=== PATIENT | male | born 1945 | race Caucasian/White ===

== ENCOUNTER 2019-03-27 10:10 | Emergency (ER) | payer MEDICARE, SELFPAY ==
--- NOTE | ~2019-03-27 | XR_ITS ---
EXAMINATION: XR chest 1V portable EXAM DATE: 03/27/2019 10:38 INDICATION: Shortness of breath. TECHNIQUE: Portable AP frontal chest x-ray was obtained. Comparison is made to prior examination from 07/01/2014. FINDINGS: The lungs are clear. There are no pleural effusions. The cardiomediastinal silhouette is within normal limits. There is no pneumothorax suspected. Left shoulder arthroplasty. IMPRESSION: No acute cardiopulmonary findings. Reviewed, dictated and finalized at location A. LSTERY PARTS SORTER
--- NOTE | ~2019-03-27 | CT_ITS ---
EXAMINATION: CTA chest PE protocol EXAM DATE: 03/27/2019 11:42 INDICATION: Shortness of breath, elevated d-dimer. TECHNIQUE: Spiral CTA of the chest (pulmonary arteries) was performed with 100 cc Omnipaque 350 intr avenous contrast injection. Images were acquired during the pulmonary arterial phase. Coronal maxi mum intensity projection 3D-reconstructions were created by the technologist on dedicated workstation . Axial, coronal and sagittal reformatted images were reviewed. The dose-length product (DLP) for t his examination was 272.13 mGy-cm. The exposure was tailored according to patient size (auto mA exp osure control), and iterative reconstruction (ASIR) was used as additional dose reduction technique. There is no prior study for comparison. FINDINGS: Pulmonary arteries are well opacified and without intraluminal filling defects. No thora cic aortic dissection. Linear bibasilar opacity consistent with subsegmental atelectasis. There is m ore rounded 7 mm nodular region with surrounding groundglass halo, finding which suggests this could be acute infectious process. Consider 6 month follow-up low-dose chest CT. There is mild emphysema an d hyperinflation. There are no pleural or pericardial effusions. Tracheobronchial tree is patent. There is no mediastinal, hilar or axillary lymphadenopathy. There is no pneumothorax. Heart norm al in size. There is mild coronary arterial calcification, arterial sclerosis. Upper abdomen is un remarkable. No osteoblastic or osteolytic lesions identified. IMPRESSION: 1. Subcentimeter left lower lobe nodular region with surrounding groundglass halo, could be small fo cus of acute infarction but consider 6 month follow-up low-dose chest CT. 2. Scattered bibasilar atelectasis. 3. Mild emphysema and hyperinflation. 4. No pulmonary emboli. Reviewed, dictated and finalized at location A. STRIAL ELECTRICAL ENGINEER IMPRESSION: 1. Subcentimeter left lower lobe nodular region with surrounding groundglass h ana, could be small focus of acute infarction but consider 6 month follow-up lo w-dose chest CT. 2. Scattered bibasilar atelectasis. 3. Mild emphysema and hyperinflation. 4. No pulmonary emboli.
[2019-03-27 10:15] VITALS: BP 168/73; PULSE 75; RESP 20; TEMP 37.1; O2SAT 98
--- NOTE | 2019-03-27 10:19 | ECG_ITS ---
Measurements Intervals [place] Rate: 59 P: 66 CO: 145 QRS: 72 QRSD: 82 T: 66 QT: 395 QTc: 392 Interpretive Statements SINUS BRADYCARDIA BORDERLINE ECG Electronically Signed On 03-27-2019 10:58:37 POLICE CAPTAIN SENIOR by Jose De Jesus Yanes D.O.
[2019-03-27 10:23] VITALS: PULSE 61
[2019-03-27 10:39] LABS: Basophils Absolute Auto 0.04 K/mm3 (0.00-0.10); Basophils Percent Auto 0.6 % (0.0-1.0); Eosinophils Absolute Auto 0.36 K/mm3 (0.02-0.50); Eosinophils Percent Auto 5.8 % (1.0-6.0); Hemoglobin 15.3 g/dL (12.4-15.3); Immature Granulocyte Absolute 0.02 K/mm3 (0.00-0.00); Immature Granulocyte Percent A 0.3 % (0.0-0.0); Lymphocytes Absolute Auto 0.83 K/mm3 (1.10-4.50); Lymphocytes Percent Auto 13.3 % (18.0-42.0); Mean Corpuscular HGB Conc 34.8 g/dL (32.0-36.0); Mean Corpuscular Hemoglobin 33.2 pg (27.0-31.0); Mean Corpuscular Volume 95.4 fL (78.0-102.0); Mean Platelet Volume 9.6 fl (8.7-11.0); Monocytes Absolute Auto 0.63 K/mm3 (0.10-0.90); Monocytes Percent Auto 10.1 % (2.0-11.0); Neutrophils Absolute Auto 4.4 K/mm3 (1.7-7.2); Neutrophils Percent Auto 69.9 % (50.0-70.0); Platelet Count Result 167 K/mm3 (150-420); Red Blood Count 4.61 M/mm3 (4.70-6.10); Red Cell Distribution Width 12.8 % (11.6-14.4); White Blood Count 6.3 K/mm3 (4.8-10.8)
--- NOTE | 2019-03-27 10:44 | ED.SOB ---
HPI - SOB/Dyspnea General Chief Complaint: Shortness of Breath/Dyspnea Stated Complaint: Russell Hess Time Seen by Provider: 03/27/19 10:20 Source: patient Mode of arrival: ambulatory Limitations: no limitations History of Present Illness HPI Narrative: Merritt is a very pleasant 73-year-old male patient. He presents ambulatory to the emergency room with his . His main complaint is that he has some hypogastric close avoid pain. He feels that this is similar to the 2 times she has had pneumonia in the past. He is somewhat short of breath. There is no history of fever. He has had no cough. There is no dyspnea on exertion. He just feels short of breath even at rest. There is no chest pain as such. No precordial pain. No arm pain. No tingling or numbness in the hands. Merritt has a history of hypertension. He is on metoprolol tartrate hydrochlorothiazide daily. History of the GERD, BPH, cervical disc disease, migraine headaches, hyperlipidemia and diverticulitis. He has never been a smoker. MD elicited complaint: shortness of breath Pertinent past history: pneumonia and other ( No history of NV, CHF. Has history of pneumonia twice in ) Context: other ( no history of exposure to flu. No recent illness.) Timing: constant Severity: mild Exacerbating factors: nothing Relieving factors: oxygen and rest Known history of: other ( Has history of pneumonia in the past. The last time was 10 years ago. No history of CHF.) Associated symptoms: other ( No chest pain. No fever. No leg swelling. No calf pain.) Treatment prior to arrival: none Related Data Home oxygen amount: none Home Medications Medication Instructions Recorded Confirmed metoprolol ta-hydrochlorothiaz 1 tablet PO DAILY 03/27/19 03/27/19 omeprazole 40 mg PO DAILY 03/27/19 03/27/19 Allergies Allergy/AdvReac Type Severity Reaction Status Date / Time hydrochlorothiazide Allergy Unknown Verified 05/28/14 12:35 ibuprofen Allergy Unknown Verified 05/28/14 12:35 No Known Allergies Allergy Unknown Verified 12/01/05 09:38 Review of Systems Review of Systems: All systems reviewed & are unremarkable except as noted in HPI and below Constitutional: Constitutional: Reports as per HPI, Reports no additional constitutional complaints, Denies chills, Denies fever(s) and Denies weakness Eyes: Eyes: Reports as per HPI, Reports no additional eye complaints and Denies change in vision ENT: Reports system reviewed and no additional complaints, except as documented, Reports as per HPI, Denies dizziness and Denies sore throat Cardiovascular: Cardiovascular: Reports as per HPI, Reports no additional cardiovascular complaints, Denies chest pain, Denies rapid heart rate, Denies radiating jaw, neck or arm pain and Denies slow heart rate Respiratory: Respiratory: Reports as per HPI, Reports no additional respiratory complaints and Reports dyspnea Gastrointestinal: Gastrointestinal: Reports as per HPI, Reports no additional gastrointestinal complaints, Denies abdominal pain, Denies constipation, Denies diarrhea, Denies nausea and Denies vomiting Genitourinary: Genitourinary: Reports no additional male genitourinary complaints, Denies hematuria and Denies dysuria Musculoskeletal: Musculoskeletal: Reports no additional musculoskeletal complaints and Reports as per HPI Comments: History of cervical disc disease Integumentary/Breasts: Skin/Breast: Reports system reviewed and no additional complaints, except as docu and Denies rash Neurologic: Reports system reviewed and no additional complaints, except as documented, Reports as per HPI, Denies vertigo, Denies dizziness, Denies syncope, Reports headache(s), Denies focal weakness and Denies numbness Psychiatric: Psychiatric: Reports no additional psychiatric complaints, Reports as per HPI, Denies anxiety and Denies depression Endocrine: Endocrine: Reports no additional endocrine complaints, Reports as per HPI, Denies fatigue and Denies p
--- NOTE | 2019-03-27 10:49 | PC.NURSE ---
Report given to IRAIDA Ulloa
[2019-03-27 10:53] LABS: D Dimer 0.71 mg/L (0.19-0.50)
[2019-03-27 10:54] LABS: INR 1.1; Partial Thromboplastin Time 25.7 SEC (22.3-31.6)
[2019-03-27 10:56] LABS: Alanine Aminotransferase 37 U/L (16-63); Albumin Level 3.6 g/dL (3.4-5.0); Alkaline Phosphatase 89 U/L (46-116); Aspartate Amino Transferase 29 U/L (15-37); Bilirubin,Total 0.6 mg/dL (0.00-1.00); Blood Urea Nitrogen 14 mg/dL (7-18); Calcium 8.7 mg/dL (8.5-10.1); Carbon Dioxide 29 mmol/L (21-32); Chloride 106 mmol/L (98-108); Estimated CRCL calculation 44 ml/min; Estimated Glomerular Filt Rate 56; Glucose 90 mg/dL (70-99); Osmolality Calculated 298 mOsm/kg (285-295); Sodium 144 mmol/L (136-145); Total Protein 6.8 g/dL (6.4-8.2)
[2019-03-27 10:57] LABS: Troponin I < 0.02 ng/mL (0.00-0.056)
[2019-03-27 10:58] LABS: BNP 54 pg/mL (0-100)
[2019-03-27 10:58] LABS: Influenza Control Valid (Valid)
--- NOTE | 2019-03-27 11:20 | PC.NURSE ---
PT. RESTING ON STREACHER. VVS. PT. DENIES C/O
[2019-03-27 11:24] LABS: Add Urine Microscopic? NO; Appearance Urine Clear (Clear); Bilirubin Urine Negative (Negative); Blood Urine Negative (Negative); Color Urine Yellow (Yellow); Glucose Urine UA Negative (Negative); Ketones Urine Negative (Negative); Leukocyte Esterase Ur Negative LEU/UL (Negative); Nitrate Urine Negative (Negative); Protein Urine Negative (Negative); Urobilinogen Urine 0.2 mg/dL (0.2-1.0)
[2019-03-27 13:06] VITALS: BP 138/79; PULSE 61; O2SAT 98
--- NOTE | 2019-03-27 13:38 | PC.NURSE ---
3733 DR. UHGGINS SPEAKS WITH DR. NOVAK'S QUALITY ASSURANCE COACH.
--- NOTE | 2019-03-27 21:23 | PC.NURSE ---
1300 saline kristin removed cath intact. no active bleeding dressing applyed.
== END 2019-03-27 13:35 | disposition home or self-care (01) ==
PROVIDERS: Emergency Provider Surgery; PCP Family Medicine
DX: J18.9 Pneumonia, unspecified organism (principal); E78.5 Hyperlipidemia, unspecified
CPT/HCPCS: 36415; 71045; 71275; 80053; 81003; 83880; 84484; 85025; 85380; 85610; 85730; 87040; 87804; 93005; 96365; 99284; J0696; Q9965

== ENCOUNTER 2019-06-30 10:17 | Outpatient (CLI) | payer MEDICARE, SELFPAY ==
--- NOTE | ~2019-06-30 | US_ITS ---
US venous doppler [facility] DATE: 06/30/2019 10:42 INDICATION: Left lower extremity pain TECHNIQUE: Real-time and color flow imaging and Doppler analysis of the veins of the left lower extre mity COMPARISON: None FINDINGS: The left greater saphenous vein is patent. There is spontaneous and phasic flow and normal augmentation and color flow signal and normal compression of the deep veins of the left leg. IMPRESSION: No evidence of deep venous thrombosis of the left leg Reviewed, dictated and finalized at Location A. Reviewed, dictated and finalized at location A.
== END 2019-06-30 10:18 | disposition home or self-care (01) ==
PROVIDERS: PCP Family Medicine; Visit Provider Family Medicine
DX: M79.605 Pain in left leg (principal); M79.89 Other specified soft tissue disorders
CPT/HCPCS: 93971

== ENCOUNTER 2019-08-15 13:55 | Outpatient (CLI) | payer MEDICARE, SELFPAY ==
--- NOTE | ~2019-08-15 | US_ITS ---
US arterial ankle brachial ind INDICATION: Peripheral vascular disease TECHNIQUE: Segmental pressures and plethysmographic and Doppler waveforms of the brachial and lower e xtremity arteries were obtained. COMPARISON: None. FINDINGS: Right and left brachial artery pressures of 178 mm Hg and 181 mm Hg, respectively, are concordant (no rmal difference <= 30 mmHg). The right ankle-brachial index (THANG) is 1.12 (normal >= 0.9-1.0). The right great toe-brachial index (TBI) is 0.61 (normal >= 0.60). The left THANG is 0.58. The left TBI is 0.45. IMPRESSION: 1. Diminished left ankle and toe brachial indices consistent with moderate peripheral arterial diseas e. Reviewed, dictated and finalized at location A. IMPRESSION: 1. Diminished left ankle and toe brachial indices consistent with moderate ivette pheral arterial disease.
== END 2019-08-15 13:56 | disposition home or self-care (01) ==
PROVIDERS: PCP Family Medicine; Visit Provider Physician Assistant
DX: I73.9 Peripheral vascular disease, unspecified (principal)
CPT/HCPCS: 93922

== ENCOUNTER 2019-12-04 13:34 | Outpatient (RCR) | payer MEDICARE, SELFPAY ==
--- NOTE | 2019-12-04 14:51 | PTOPEVAL ---
Thank you for referring Merritt Marrero to [facility].? The patient is scheduled to be seen for therapy? ___3_x/week for 12 visits. Please review, sign, date and return this plan of care RAEANN. I agree with and certify that the following plan of care is medically necessary. Referring Physician Date Admitting Provider: Attending Provider: PHYSICIAN NOT ON STAFF Referring Provider: *PT Outpatient Evaluation Start: 12/04/19 14:08 Freq: Status: Active Protocol: Document 12/04/19 14:09 FLORI (Rec: 12/04/19 14:51 FLORI [email or web address]) Therapy Assessment Status Assessment Status Assessment Status Evaluation Outpatient Past Medical History Cardiovascular History Hx Hypertension Yes Gastrointestinal History Hx Gastroesophageal Reflux Disease Yes Musculoskeletal History Hx Orthopedic Surgery Yes: shoulders and neck Evaluation Information Problem Diagnosis unstable gait, parkinsonism Onset 12/03/18 Subjective Information Pt. reports that about 1 year Query Text:As Reported By Patient/ ago he developed a deposit of Family fluid in the brain. He states that they have noted a worsening of his mobility over the past year. Pt. reports that he has difficulty with walking first thing in the morning. He states that his right leg is weaker than the left. He recalls 2 episodes of falling to the ground in the past several months. He states that he continues to complete all IADL's despite his pain. He reports that he can only walk about 1/4-1/2 mile until his legs give out, however was able to walk for about 5 miles up to 6 months or 1 year ago. He reports that his goal is to return to walking normal and improving strength. Prior Level of Function Activity Level (Last 3 Months) Occupation retired Hand Dominance Right Activity of Daily Living Ability Independent Indoor/Home Mobility Independent Community Mobility Independent Stairs Ability Independent Functional Cognition (Planning, Shopping Needs Some Help , Taking Medications) Cooking Yes Cleaning
== END 2020-01-10 14:36 | disposition home or self-care (01) ==
LOC: CHSPT 13:34
DX: R26.81 Unsteadiness on feet (principal); G20 Parkinson's disease
CPT/HCPCS: 97110; 97161; 97530

== ENCOUNTER 2020-06-01 15:28 | Emergency (ER) | payer MEDICARE, SELFPAY ==
--- NOTE | ~2020-06-01 | XR_ITS ---
XR chest 1V 06/01/2020 16:16 Indication: Chest pain after fall Procedure: AP view of the chest Comparison: 03/27/2019 Findings: Heart size normal. No focal air space disease, pulmonary edema, pleural effusion or suspect ed pneumothorax. There is basilar atelectasis. No acute osseous abnormality. There is left shoulder a rthroplasty. Impression: 1: Bibasilar atelectasis. Reviewed, dictated and finalized at location A. Impression: 1: Bibasilar atelectasis.
--- NOTE | ~2020-06-01 | CT_ITS ---
EXAMINATION: CT brain wo con DATE: 06/01/2020 16:12 INDICATION: Status post fall. Trauma to the back of head. Neck pain. TECHNIQUE: Computed tomography (CT) of the head was performed without intravenous contrast. The dose- length product was 681.00 mGy-cm. Automated exposure control and iterative reconstruction technique w ere employed. COMPARISON: CT dated 10/28/2015 FINDINGS: Brain parenchymal volume is normal for age. There are scattered mild periventricular and kent bcortical white matter changes, most likely related to small vessel ischemic disease (microangiopathy ). No depressed skull fractures. No acute intracranial hemorrhage, infarction, mass or mass effect. N o ventriculomegaly or midline shift. IMPRESSION: 1. No acute intracranial abnormality. 2: Chronic age-related findings. Reviewed, dictated and finalized at location A.
--- NOTE | ~2020-06-01 | CT_ITS ---
EXAMINATION: CT cervical spine wo con DATE: 06/01/2020 16:12 INDICATION: Neck pain after fall TECHNIQUE: Computed tomography (CT) of the cervical spine was performed without intravenous contrast. The dose-length product was 344 mGy-cm. Automated exposure control and iterative reconstruction tech [employer] were employed. COMPARISON: CT dated 07/24/2016 FINDINGS: There is posterior fusion hardware at C3-C5 with interbody fusion. Facets are fused at C6-7 . There is lucency surrounding the C5 pedicular screws without significant change from prior examinat ion. There is partial laminectomy inferiorly at C3. There are laminectomies at C4 and C5. Vertebral b mariana heights are maintained. No significant prevertebral soft tissue abnormality. Odontoid process wit hin normal limits. There is an oblique nondisplaced left first rib fracture. No significant paraspina l soft tissue abnormality. There is apical pleural thickening/scarring. IMPRESSION: 1. Oblique nondisplaced fracture posterior aspect of the left first rib. 2: No acute abnormality of the cervical spine. Reviewed, dictated and finalized at location A.
[2020-06-01 15:27] VITALS: BP 172/85; PULSE 78; RESP 18; TEMP 36.3; O2SAT 98
--- NOTE | 2020-06-01 15:36 | ED.FALL ---
HPI - Fall General Chief Complaint: Fall Stated Complaint: fall, neck, bilat shoulder pain Source: patient Mode of arrival: ambulatory Limitations: no limitations History of Present Illness HPI Narrative: This is 74 year old male with history of chronic neck pain, neck surgery who presents for evaluation of neck pain s/p fall. Patient accidentally fell backwards just prior to arrival. He hit his head on his pilates equipment. He denies having LOC but reports neck pain and bilateral shoulder. He denies dizziness, nausea or vomiting. He denies focal extremity weakness, numbness or tingling. He denies chronic anticoagulation. Related Data Home Medications Medication Instructions Recorded Confirmed carbidopa-levodopa 1.5 tablet PO TID 06/01/20 Allergies Allergy/AdvReac Type Severity Reaction Status Date / Time hydrochlorothiazide Allergy Unknown Unknown Verified 06/01/20 15:34 Review of Systems Review of Systems: All systems reviewed & are unremarkable except as noted in HPI and below PMFSH Past Medical History Medical History (Updated 06/01/20 @ 17:16 by Marley Florence MD) Cervical disc disease Diverticulitis Hyperlipidemia Left lower lobe pulmonary nodule Pneumonia Rotator cuff arthropathy of both shoulders Surgical History Surgical History History of neck surgery History of shoulder surgery Family History Family History Father , father ultimately of CHF Malignant neoplasm of prostate Heart disease Sibling Family history of coronary artery disease Mother , mother of Alzheimer's No problems noted. Social History Social History Smoking status: Never smoker Second hand tobacco smoke exposure: No Alcohol intake: never Exam Const: General: no acute distress and alert Orientation/consciousness: patient oriented x3 HENMT: Head: normocephalic and atraumatic Mouth: Yes Normal oral and palatal mucosa present, Yes lip normal and Yes moist mucous membranes Eyes: Pupils: Equal, round and reactive pupils present EOM: EOMs intact bilaterally Neck: Other: in cervical collar Resp: Effort & Inspection: normal respiratory effort and no retractions Auscultation: clear to auscultation bilaterally Cardio: Rate: regular rate Rhythm: regular rhythm Heart sounds: no murmurs GI: GI Palp: Yes Soft to palpation, No Tenderness to palpation present (GI) and No Guarding due to palpation present (GI) Auscultation: normal bowel sounds Skin: General skin exam: normal color Rashes: no rashes Neuro: General: patient oriented x3 and moves all extremities Psych: Mental Status: mental status grossly normal Affect: normal affect Course Reevaluation(s) Reevaluation #1: PAtient was able to ambulate . He did have shuffling gait from his parkinson's. CT spine is unchanged. He was made aware of his rib fractures. Date: 06/01/20 Time: 17:11 Vital Signs Vital signs: Vital Signs Temperature 97.4 F L 06/01/20 15:27 Pulse Rate 78 06/01/20 15:27 Respiratory Rate 18 06/01/20 15:27 Blood Pressure 172/85 H 06/01/20 15:27 Pulse Oximetry 98 06/01/20 15:27 Temperature 97.4 F L 06/01/20 17:02 Pulse Rate 63 06/01/20 17:39 Respiratory Rate 18 06/01/20 17:39 Blood Pressure 178/84 H 06/01/20 17:39 Pulse Oximetry 97 06/01/20 17:39 MDM - Fall Medical Records Attestation: I reviewed the patient's medical records. Imaging Data Attestation: I personally reviewed and interpreted this imaging study as follows: Radiologist's impression: ITS Impressions Head CT 06/01/20 16:16 IMPRESSION: 1. No acute intracranial abnormality. 2: Chronic age-related findings. Chest X-Ray 06/01/20 16:20 Impression: 1: Bibasilar atelectasis. ADDENDUM: 06/01/20 1624 Ad
[2020-06-01] MEDS: ONDANSETRON INJ 4 MG/2 ML VIAL IV PUSH (16:32)
[2020-06-01] MEDS: HYDROmorphone HCL INJ (*CRX) 1 MG/ML SYR 0.5 MG IV PUSH (16:32)
[2020-06-01 16:33] VITALS: BP 170/85; PULSE 86; RESP 16; O2SAT 99
[2020-06-01 17:02] VITALS: TEMP 36.3
[2020-06-01 17:39] VITALS: BP 178/84; PULSE 63; RESP 18; O2SAT 97
== END 2020-06-01 17:40 | disposition home or self-care (01) ==
PROVIDERS: Emergency Provider General Practice; PCP Family Medicine
DX: S09.90XA Unspecified injury of head, initial encounter (principal); S22.32XA Fracture of one rib, left side, initial encounter for closed fracture; M50.90 Cervical disc disorder, unspecified, unspecified cervical region; E78.5 Hyperlipidemia, unspecified; W01.198A Fall on same level from slipping, tripping and stumbling with subsequent striking against other object, initial encounter
CPT/HCPCS: 70450; 71045; 72125; 96374; 96375; 99284; J1170; J2405

== ENCOUNTER 2020-06-06 16:12 | Emergency (ER) | payer MEDICARE, SELFPAY ==
--- NOTE | ~2020-06-06 | XR_ITS ---
EXAMINATION: XR shoulder RT min 2V DATE: 06/06/2020 17:07 INDICATION: Right shoulder pain post fall down stairs TECHNIQUE: AP internally and externally rotated, AP oblique externally rotated and transscapular Y vi ews of the right shoulder were obtained. COMPARISON: None FINDINGS: Normal alignment. No fracture.Mild to moderate glenohumeral and acromioclavicular osteoarthritis. Mi ld cystic change along the greater tuberosity consistent with chronic rotator cuff disease. Partially visualized bilateral vertical danyel and pedicle screw fixation for cervical posterior spinal fusion. T here is small amount of lucency surrounding the screws suggesting possible loosening. Linear discoid atelectasis/scarring at the right lower lung zone. Soft tissues are unremarkable. IMPRESSION: Mild to moderate right glenohumeral and acromioclavicular osteoarthritis. No acute osseous abnormalit y. Reviewed, dictated and finalized at location A. IMPRESSION: Mild to moderate right glenohumeral and acromioclavicular osteoarthritis. No ac amauri osseous abnormality.
[2020-06-06 16:30] VITALS: BP 187/87; PULSE 84; RESP 16; TEMP 36.2; O2SAT 95
[2020-06-06] MEDS: KETOROLAC (*BKC) 60 MG/2 ML VIAL IM (16:39)
--- NOTE | 2020-06-06 17:37 | PC.NURSE ---
Pt states his pain is much better than when he came in rating it now at a 9/10.
--- NOTE | 2020-06-06 17:44 | ED.UPPEXIN ---
HPI - Extremity Injury (Upper) General Chief Complaint: Extremity Injury, Upper Stated Complaint: R shoulder Source: patient and family Mode of arrival: ambulatory Limitations: no limitations History of Present Illness HPI narrative: patient here today after he had a fall about a week ago and hit the back of his head and neck and the side of his left rib area, and is currently complaining of right shoulder pain with decreased range of motion, was seen at [facility] ER approximately 1 week ago and had x-rays performed there including a CT of cervical spine and chest x-ray which showed the arthroplasty of his left shoulder and a 1st nondisplaced rib fracture, the patient was given hydrocodone and week later the patient states that he is having extreme pain in his right shoulder at this time has been out of his hydrocodone and rates his pain greater than a 10. Has no point tenderness with palpation but does have decreased range of motion of his right shoulder. complaint: injury to: right and shoulder Onset (ago): week(s) Other Extremity Injury: Right: shoulder ( Painful with decreased range of motion) Severity: severe Severity scale (1-10): >10 Related Data Home Medications Medication Instructions Recorded Confirmed carbidopa-levodopa 1.5 tablet PO TID 06/01/20 06/06/20 Allergies Allergy/AdvReac Type Severity Reaction Status Date / Time hydrochlorothiazide Allergy Unknown Unknown Verified 06/01/20 15:34 Review of Systems Review of Systems: All systems reviewed & are unremarkable except as noted in HPI and below PMFSH Past Medical History Medical History (Updated 06/06/20 @ 17:49 by Stone Tinoco MD) Cervical disc disease Diverticulitis Hyperlipidemia Left lower lobe pulmonary nodule Pneumonia Rotator cuff arthropathy of both shoulders Surgical History Surgical History History of neck surgery History of shoulder surgery Family History Family History Father , father ultimately of CHF Malignant neoplasm of prostate Heart disease Sibling Family history of coronary artery disease Mother , mother of Alzheimer's No problems noted. Social History Social History Smoking status: Never smoker Second hand tobacco smoke exposure: No Alcohol intake: never Gender identity (if verbalized by the patient): Male Exam Const: General: no acute distress HENMT: Head: normal to inspection Eyes: Pupils: Equal, round and reactive pupils present Neck: Neck: normal visual inspection, no lymphadenopathy and no meningeal signs Chest: Chest palpation & inspection: normal inspection of the chest Resp: Effort & Inspection: normal respiratory effort Cardio: Rate: regular rate Rhythm: regular rhythm GI: GI Palp: Yes Soft to palpation Back/Spine/Pelvis: Back: no CVA tenderness Skin: General skin exam: normal color Rashes: no rashes Neuro: General: patient oriented x3 Other: Limited range of motion of the right shoulder but x-ray shows no acute fractures. Extrem: Other: Decreased range of motion the right shoulder no point tenderness with palpation no numbness or tingling has good pulses and is some right arm. Psych: Appearance: grossly normal Mental Status: mental status grossly normal Course Course Emergency Course: Patient received Toradol pain has improved, and reviewed x-ray findings with patient and family advised close follow-up with primary care physician he may need an MRI to rule out rotator cuff tear. Vital Signs Vital signs: Vital Signs Temperature 36.2 C L 06/06/20 16:30 Pulse Rate 84 06/06/20 16:30 Respiratory Rate 16 06/06/20 16:30 Blood Pressure 187/87 H 06/06/20 16:30 Pulse Oximetry 95 06/06/20 16:30 Temperature 36.2 C L 06/06/20 16:30 Pulse
[2020-06-06 17:58] VITALS: BP 173/80; PULSE 86; RESP 16; O2SAT 97
== END 2020-06-06 17:59 | disposition home or self-care (01) ==
PROVIDERS: Emergency Provider Emergency Medicine; PCP Family Medicine
DX: S46.011D Strain of muscle(s) and tendon(s) of the rotator cuff of right shoulder, subsequent encounter (principal); W19.XXXA Unspecified fall, initial encounter
CPT/HCPCS: 73030; 96372; 99283; J1885

== ENCOUNTER 2020-12-18 10:46 | Emergency (ER) | payer MEDICARE, SELFPAY ==
--- NOTE | ~2020-12-18 | XR_ITS ---
XR shoulder LT min 2V 12/18/2020 11:24 Indication: Left shoulder pain Procedure: 4 views left shoulder Comparison: 11/17/2010 Findings: There is a left total shoulder arthroplasty. There is a fracture fragment along the inferio r margin of the glenoid process, seen on the oblique image only. Surrounding osseous structures withi n normal limits. Impression: 1: Small fracture fragment along the inferior margin of the glenoid process, age indeterminate. 2: Left total shoulder arthroplasty well seated. Reviewed, dictated and finalized at location A. ASSISTANT Impression: 1: Small fracture fragment along the inferior margin of the glenoid process, ag e indeterminate. 2: Left total shoulder arthroplasty well seated.
--- NOTE | ~2020-12-18 | XR_ITS ---
XR elbow LT min 3V 12/18/2020 11:23 INDICATION: Left elbow pain PROCEDURE: 4 views left elbow COMPARISON: No prior studies for comparison. FINDINGS: Fracture, dislocation or subluxation is not identified. No significant joint effusion. The soft tissues appear within normal limits. No foreign bodies are identified. IMPRESSION: 1: NO ACUTE BONE OR JOINT ABNORMALITY IDENTIFIED. Reviewed, dictated and finalized at location A. THESIOLOGIST ATTENDING
[2020-12-18 10:56] VITALS: BP 154/84; PULSE 101; RESP 16; TEMP 37.1; O2SAT 96
--- NOTE | 2020-12-18 11:35 | PC.NURSE ---
PT TAKEN TO RADIOLOGY IN WHEELCHAIR
--- NOTE | 2020-12-18 11:41 | ED.FALL ---
HPI - Fall General Chief Complaint: Fall Stated Complaint: neck and shoulder pain from fall History of Present Illness HPI Narrative: This is a 75-year-old male with history of Parkinson's who had a fall on Wednesday according to patient his he went to open the door and fell backwards trying to open the door hit his shoulder as well as his elbow which is causing him pain patient that that he would see if the pain will go away he is having increasing pain to the shoulder and elbow when he applies pressure. According to patient's he has had frequent falls lately where his leg just gives out. Patient denies hitting his head Related Data Home Medications Medication Instructions Recorded Confirmed carbidopa 25 mg-levodopa 100 mg 1 tablet PO TID tablet 06/11/20 06/11/20 tablet Allergies Allergy/AdvReac Type Severity Reaction Status Date / Time hydrochlorothiazide Allergy Unknown Unknown Verified 12/18/20 11:03 Review of Systems Review of Systems: Left shoulder and elbow pain All systems reviewed & are unremarkable except as noted in HPI and below PMFSH Past Medical History Medical History (Updated 12/18/20 @ 11:46 by Maury Vickers, DAVINA) Cervical disc disease Diverticulitis Encounter for immunization Hyperlipidemia Left lower lobe pulmonary nodule Parkinson disease Pneumonia Rotator cuff arthropathy of both shoulders Surgical History Surgical History History of neck surgery History of shoulder surgery Family History Family History Father , father ultimately of CHF Malignant neoplasm of prostate Heart disease Sibling Family history of coronary artery disease Mother , mother of Alzheimer's No problems noted. Social History Social History Second hand tobacco smoke exposure: No Alcohol intake: never Substance use: never Substance use type: does not use Gender identity (if verbalized by the patient): Male Comments At time as signature, I have reviewed and agree with nursing past medical, social, surgical and family history. Please see nursing chart for further information. There is no relevant family history pertinent to the presenting complaint. Exam Narrative: GENERAL:Well-appearing, frail HEAD:Normocephalic, EYES: PERRLA . ENT: Nares clear, no rhinorrhea or epistaxis. CHEST: Clear to auscultation. HEART: Regular rate and rhythm. ABDOMEN: Soft, nontender, nondistended, normal active bowel sounds. EXTREMITIES: Decreased left arm and shoulder range of motion due to pain plus Parkinson's scrape on shoulder. No edema. SKIN: Warm, dry, no rash. NEURO: No focal deficits. Alert and oriented x3. Course Course Emergency Course: X-ray negative for elbow shoulder shows fracture fragment age-indeterminate will treat as if acute Vital Signs Vital signs: Vital Signs Temperature 98.7 F 12/18/20 10:56 Pulse Rate 101 H 12/18/20 10:56 Respiratory Rate 16 12/18/20 10:56 Blood Pressure 154/84 H 12/18/20 10:56 Pulse Oximetry 96 12/18/20 10:56 Temperature 98.7 F 12/18/20 10:56 Pulse Rate 101 H 12/18/20 10:56 Respiratory Rate 16 12/18/20 10:56 Blood Pressure 154/84 H 12/18/20 10:56 Pulse Oximetry 96 12/18/20 10:56 MDM - Fall Differential Diagnosis Differential diagnosis: Likely syncope, dislocation of shoulder region, fracture of wrist, compression fracture, concussion with loss of consciousness and concussion without loss of consciousness Discharge Plan Discharge Clinical Impression: Fracture of glenoid cavity and neck of left scapula Qualifiers: Encounter type: initial encounter Fracture type: closed Qualified Code(s): S42.142A - Displaced fracture of glenoid cavity of scapula, left shoulder, initial encounter for closed fracture Fall Qualifiers:
== END 2020-12-18 11:55 | disposition home or self-care (01) ==
PROVIDERS: Emergency Provider Nurse Practitioner Family; PCP Family Medicine
DX: S42.142A Displaced fracture of glenoid cavity of scapula, left shoulder, initial encounter for closed fracture (principal); S42.152A Displaced fracture of neck of scapula, left shoulder, initial encounter for closed fracture; W19.XXXA Unspecified fall, initial encounter; I10 Essential (primary) hypertension; E78.5 Hyperlipidemia, unspecified; G20 Parkinson's disease
CPT/HCPCS: 73030; 73080; 99214; A4565; G0463

== ENCOUNTER 2020-12-25 13:47 | Outpatient (RCR) | payer MEDICARE, SELFPAY ==
--- NOTE | 2020-12-25 14:19 | PTOPEVAL ---
Thank you for referring Merritt Marrero to [facility].? The patient is scheduled to be seen for therapy? ____x/week for ___ weeks. Please review, sign, date and return this plan of care RAEANN. I agree with and certify that the following plan of care is medically necessary. Referring Physician Date Admitting Provider: Attending Provider: Dannielle Toussaint MD Referring Provider: *PT Outpatient Evaluation Start: 12/25/20 13:44 Freq: Status: Active Protocol: Document 12/25/20 13:45 J (Rec: 12/25/20 14:19 [facility] [id number]) Therapy Assessment Status Assessment Status Assessment Status Evaluation Outpatient Past Medical History Neurological History Hx Dementia Yes Hx Parkinson's Disease Yes Cardiovascular History Hx Hypertension Yes Gastrointestinal History Hx Gastroesophageal Reflux Disease Yes Musculoskeletal History Hx Joint Replacement Yes: Left shoulder replacement Hx Orthopedic Surgery Yes: shoulders and neck Evaluation Information Problem Diagnosis parkinsons, abnormal gait, frequent falls Onset 12/20/20 Subjective Information patient reports he has been Query Text:As Reported By Patient/ having increased trouble Family walking and increased falls for the last 6 months. he reports he dell and broke his L shoulder (about 3 months ago ). patient reports fall was about 3 months ago, but ER visit was on 12/18/20 indicating fall was the wednesday prior on 12/15/20. he reports no falls since then. he reports he has been diagnosed with parkinsons for 2 years. he reports walking, balance, and routine home activities. patient reports he is currently using no AD, but reports he is getting a cane. patient reports he does drive. Prior Level of Function Comments Additional Prior Level of Function patients gait and balance has Comments been progressively getting worse for several years. Pain Assessment Timing of Pain Assessment Timing of Pain Assessment Assessment Pain Scale Pain Scale Used Numeric (1 - 10) Self Report Pain Assessment Left Shoulder(s) Reported Pain Level 8 Pain Score Pain Score 8: Self Report Interventions Used
--- NOTE | 2021-01-07 15:09 | PTOPEVAL ---
Thank you for referring Merritt Marrero to [facility].? The patient is scheduled to be seen for therapy? ____x/week for ___ weeks. Please review, sign, date and return this plan of care RAEANN. I agree with and certify that the following plan of care is medically necessary. Referring Physician Date Admitting Provider: Attending Provider: Dannielle Toussaint MD Referring Provider: *PT Outpatient Evaluation Start: 12/25/20 13:44 Freq: Status: Active Protocol: Document 01/07/21 13:50 [facility] (Rec: 01/07/21 15:08 [facility] [id number]) Therapy Assessment Status Assessment Status Assessment Status Progress Outpatient Past Medical History Neurological History Hx Dementia Yes Hx Parkinson's Disease Yes Cardiovascular History Hx Hypertension Yes Gastrointestinal History Hx Gastroesophageal Reflux Disease Yes Musculoskeletal History Hx Joint Replacement Yes: Left shoulder replacement Hx Orthopedic Surgery Yes: shoulders and neck Evaluation Information Problem Diagnosis parkinsons, abnormal gait, frequent falls Onset 12/20/20 Pain Assessment Timing of Pain Assessment Timing of Pain Assessment Assessment Self Report Self Report Pain Level 0 Pain Score Pain Score 0: Self Report Balance Assessment Tinetti Balance Assessment Sitting Balance Steady, safe Ability to Arise Able, uses arms to help Attempts to Arise Able, requires >1 attempt Immediate Standing Balance Steady with support Standing Balance Unsteady Nudged Response Begins to fall Standing with Eyes Closed Unsteady Step Pattern Turning 360 Degrees Discontinuous steps Stability Turning 360 Degrees Unsteady, grabs/staggers Sitting Down Uses arms or unsteady Initiation of Gait No hesitancy Right Foot Step Length Does pass stance foot Right Foot Step Height Completely clears floor Left Foot Step Length Does pass stance foot Left Foot Step Height Completely clears floor Step Symmetry Step length appears equal Step Continuity Steps appear continuous Path Description Mild/moderate deviation Trunk Description No sway but posturing Walking Stance Heels apart Assistive Devices Used No Tinetti Composite Score (Balance + Gait) 14 (/28) Interpretation of Scores High risk for falls(< 19) Comments sit to stand transfer perform is inconsistent and patient frequently attempts standing from chair and fa
--- NOTE | 2021-01-21 16:56 | PTOPEVAL ---
Thank you for referring Merritt Marrero to [facility].? The patient is scheduled to be seen for therapy? ____x/week for ___ weeks. Please review, sign, date and return this plan of care RAEANN. I agree with and certify that the following plan of care is medically necessary. Referring Physician Date Admitting Provider: Attending Provider: Dannielle Tousasint MD Referring Provider: *PT Outpatient Evaluation Start: 12/25/20 13:44 Freq: Status: Active Protocol: Document 01/21/21 16:44 [facility] (Rec: 01/21/21 16:55 [facility] [id number]) Therapy Assessment Status Assessment Status Assessment Status Re-evaluation Outpatient Past Medical History Neurological History Hx Dementia Yes Hx Parkinson's Disease Yes Cardiovascular History Hx Hypertension Yes Gastrointestinal History Hx Gastroesophageal Reflux Disease Yes Musculoskeletal History Hx Joint Replacement Yes: Left shoulder replacement Hx Orthopedic Surgery Yes: shoulders and neck Evaluation Information Problem Diagnosis parkinsons, abnormal gait, frequent falls Onset 12/20/20 Subjective Information patient reports he feels Query Text:As Reported By Patient/ improved, but still struggles Family with al ot of things that he used to be able to do easily. he reports he still gets off balance at times while walking and standing. he reports difficulty with sit to stand transfers. he reports he is not walking near as much at home anymore. he reports no falls recently. Pain Assessment Timing of Pain Assessment Timing of Pain Assessment Assessment Pain Scale Pain Scale Used Numeric (1 - 10) Self Report Pain Assessment Lower Back Reported Pain Level 2 Left Shoulder(s) Reported Pain Level 2 Pain Score Pain Score 2,2: Self Report Interventions Used Interventions Used By Clinicians Activity or ADL's,Education, Exercise Transfer Assessment Chair Transfer Assessment Chair Transfer Assistive Devices Gait Belt Ambulation Assistive Devices None Chair Transfer Destination Ambulatory Sit to Stand Chair Transfer Ability Standby Assistance Stand to Sit Chair Transfer Ability Standby Assistance Chair Transfer Comments patient performs sit to stand transfers with safe transfer to standing and minimal use of the UE's about 75% of the
--- NOTE | 2021-02-19 15:02 | PTOPEVAL ---
Thank you for referring Merritt Marrero to [facility].? The patient is scheduled to be seen for therapy? ____x/week for ___ weeks. Please review, sign, date and return this plan of care RAEANN. I agree with and certify that the following plan of care is medically necessary. Referring Physician Date Admitting Provider: Attending Provider: Dannielle Toussaint MD Referring Provider: *PT Outpatient Evaluation Start: 12/25/20 13:44 Freq: Status: Active Protocol: Document 02/19/21 14:00 [facility] (Rec: 02/19/21 15:01 [facility] [id number]) Therapy Assessment Status Assessment Status Assessment Status Discharge Outpatient Past Medical History Neurological History Hx Dementia Yes Hx Parkinson's Disease Yes Cardiovascular History Hx Hypertension Yes Gastrointestinal History Hx Gastroesophageal Reflux Disease Yes Musculoskeletal History Hx Joint Replacement Yes: Left shoulder replacement Hx Orthopedic Surgery Yes: shoulders and neck Evaluation Information Problem Diagnosis parkinsons, abnormal gait, frequent falls Onset 12/20/20 Subjective Information patient reports he feels good Query Text:As Reported By Patient/ this date. he reports no Family falls this past week. he reports he is compliant with his HEP until last week when he had a cataract removed. Pain Assessment Timing of Pain Assessment Timing of Pain Assessment Assessment Self Report Self Report Pain Level 0 Pain Score Pain Score 0: Self Report Lower Extremity Muscle Strength Testing Hip Strength Bilateral Hip Flexion Strength 4+ Good + Hip Abduction Strength 4 Good Knee Strength Bilateral Knee Flexion Strength 4+ Good + Knee Extension Strength 4+ Good + Posture Posture Standing Position Additional Posture Comments forward head/rounded shoulders decreased lumbar lordosis/ppt flexed hips, knees, and DF'd ankles widened PRISCILLA Balance Assessment Tinetti Balance Assessment Sitting Balance Steady, safe Ability to Arise Able, uses arms to help Attempts to Arise Able, requires >1 attempt Immediate Standing Balance Steady with support Standing Balance Steady, wide stance Nudged Response Begins to fall Standing with Eyes Closed Unsteady Step Pattern Turning 360 Degrees Discontinuous steps Stability Turning 360 Degrees Unsteady, grabs/staggers Sitting Down Uses arms or unsteady Ini
== END 2021-02-19 15:36 | disposition home or self-care (01) ==
LOC: CHSPT 13:47
PROVIDERS: PCP Family Medicine; Visit Provider Family Medicine
DX: G20 Parkinson's disease (principal); R29.898 Other symptoms and signs involving the musculoskeletal system; R29.6 Repeated falls
CPT/HCPCS: 97014; 97110; 97112; 97161; 97530; G0283

== ENCOUNTER 2021-11-23 19:57 | Emergency (ER) | payer MEDICARE, SELFPAY ==
--- NOTE | ~2021-11-23 | CT_ITS ---
EXAMINATION: CT brain wo con DATE: 11/23/2021 21:07 INDICATION: fall bavkwards, hit to back of head . TECHNIQUE: Computed tomography (CT) of the head was performed without intravenous contrast. The mA wa s adjusted according to patient size. Iterative reconstruction technique was employed. The dose-lengt h product was 681.00 mGy-cm. COMPARISON: 06/01/2020. FINDINGS: No acute intracranial hemorrhage or extra-axial fluid collection. No hydrocephalus, mass, or herniation. No acute ischemic infarct. Unremarkable dural venous sinus attenuation. No acute osseous abnormality. The aerated spaces are clear. Moderate atrophy and mild chronic white matter change. Atherosclerotic intracranial calcification. Bi lateral lens replacements. IMPRESSION: No acute intracranial process. Reviewed, dictated and finalized at location K.
--- NOTE | ~2021-11-23 | CT_ITS ---
EXAMINATION: CT cervical spine wo con DATE: 11/23/2021 21:07 INDICATION: fall/ prior surgery TECHNIQUE: Computed tomography (CT) of the cervical spine was performed without intravenous contrast. Automated exposure control and iterative reconstruction technique were employed. The dose-length pro duct was 387.26 mGy-cm. COMPARISON: 06/01/2020 FINDINGS: Vertebral Body Alignment: Intact. Stable trace retrolisthesis at C3-4 and trace anterolisthesis at C4 -5 Craniocervical and atlantoaxial alignment: Moderate degenerative change. Alignment intact. Osseous structures/fracture: Posterior hardware fusion and laminectomy from C3-C5. Vertebral body and facet fusion from C5-C7. Mild stable perihilar hardware lucency about the laminar screws at C5. No e vidence of a lytic or blastic process in the visualized spine. No evidence of acute fracture. Cervical soft tissues: The paraspinal soft tissues planes are maintained. Biapical pleural scarring. Degenerative changes: Degenerative changes, without severe central canal narrowing. Severe right neur al foraminal narrowing at C4-5 IMPRESSION: No acute fracture or traumatic malalignment in the cervical spine. Reviewed, dictated and finalized at location K.
[2021-11-23 19:47] VITALS: BP 186/79; PULSE 73; RESP 18; TEMP 36.7; O2SAT 98
--- NOTE | 2021-11-23 20:00 | ED.FALL ---
HPI - Fall General Chief Complaint: Fall Stated Complaint: FALL/HEAD INJURY Time Seen by Provider: 11/23/21 19:59 History of Present Illness HPI Narrative: Patient is a 76-year-old male with a history of Parkinson's presenting after a fall. Patient's reports that he has frequent falls. Today he was in the bathroom when he fell backwards striking his head on the bathtub. He denies losing consciousness. Since that time, he has had neck pain. States he has a history of multiple neck surgeries. He denies numbness or weakness. Denies vision changes, lightheadedness, speech changes, chest pain, shortness of breath, abdominal pain, nausea or vomiting. Related Data Home Medications Medication Instructions Recorded Confirmed carbidopa 25 mg-levodopa 100 mg 1 tablet PO TID 06/11/20 11/25/21 tablet Allergies Allergy/AdvReac Type Severity Reaction Status Date / Time hydrochlorothiazide Allergy Unknown Unknown Verified 11/25/21 12:02 Review of Systems Review of Systems: All systems reviewed & are unremarkable except as noted in HPI and below PMFSH Past Medical History Medical History Cervical disc disease Diverticulitis Encounter for immunization Hyperlipidemia Left lower lobe pulmonary nodule Parkinson disease Pneumonia Rotator cuff arthropathy of both shoulders Surgical History Surgical History History of neck surgery History of shoulder surgery Family History Family History Father , father ultimately of CHF Malignant neoplasm of prostate Heart disease Sibling Family history of coronary artery disease Mother , mother of Alzheimer's No problems noted. Social History Social History (Updated 11/25/21 @ 12:02 by Shelby Whitfield [facility]) Smoking status: Never smoker Second hand tobacco smoke exposure: No Alcohol intake: never Substance use: never Substance use type: does not use Gender identity (if verbalized by the patient): Male Spiritual care concerns: No Agree to blood products: Yes Exam Narrative: GENERAL: Frail appearing elderly gentleman HEAD: Normocephalic, atraumatic. EYES: PERRLA and EOMI. ENT: Nares clear, no rhinorrhea or epistaxis. Mucous membranes moist. NECK: C-collar in place, +cervical tenderness CHEST: Clear to auscultation. No respiratory distress. HEART: Regular rate and rhythm. No murmur heard. Normal peripheral pulses. ABDOMEN: Soft, nontender, nondistended, normal active bowel sounds. EXTREMITIES: Normal range of motion. No edema. SKIN: Warm, dry, no rash. NEURO: No focal deficits. Alert and oriented x3. PSYCH: Normal mood and affect. Course Course Emergency Course: Patient is a 76-year-old male presenting with neck pain after a fall. Patient is hypertensive, otherwise vitals are within normal limits. Exam remarkable for the above. No neurologic deficits. CT head shows no acute abnormalities. CT C-spine shows no acute abnormality. Patient was able to ambulate with a walker which is what he uses at home for ambulation. Offered admission for PT OT and possible placement but patient would like to go home at this time. Advise close PCP follow-up. Appropriate return precautions given. Patient discharged in stable condition. Vital Signs Vital signs: Vital Signs Temperature 98.1 F 11/23/21 19:47 Pulse Rate 73 11/23/21 19:47 Respiratory Rate 18 11/23/21 19:47 Blood Pressure 186/79 H 11/23/21 19:47 Pulse Oximetry 98 11/23/21 19:47 Temperature 98.1 F 11/23/21 19:47 Pulse Rate 73 11/23/21 19:47 Respiratory Rate 18 11/23/21 19:47 Blood Pressure 186/79 H 11/23/21 19:47 Pulse Oximetry 98 11/23/21 19:47 Critical Care Time Critical Care Time Critical Care Time: No Discharge Plan Discharge Clinical Impressi
[2021-11-23] MEDS: MORPHINE SULFATE (*CRX) 4 MG/ML INJ IM (20:44)
--- NOTE | 2021-11-23 22:42 | PC.NURSE ---
PCT ambulated pt in jean per MD order, pt tolerated ambulation well
== END 2021-11-23 23:02 | disposition home or self-care (01) ==
PROVIDERS: Emergency Provider Emergency Medicine; PCP Family Medicine
DX: S19.9XXA Unspecified injury of neck, initial encounter (principal); R29.6 Repeated falls; G20 Parkinson's disease; M50.30 Other cervical disc degeneration, unspecified cervical region; E78.5 Hyperlipidemia, unspecified; Z87.01 Personal history of pneumonia (recurrent); W01.198A Fall on same level from slipping, tripping and stumbling with subsequent striking against other object, initial encounter
CPT/HCPCS: 70450; 72125; 96372; 99284; J2270

== ENCOUNTER 2021-12-02 14:46 | Outpatient (RCR) | payer MEDICARE, SELFPAY ==
--- NOTE | 2021-12-02 16:02 | PTOPEVAL1 ---
Assessment and note entered by JT File, PT Evaluation Information Assessment Status Evaluation Diagnosis parkinsons disease, frequent falls Onset 11/17/21 Subjective Information patient reports he is back in therapy due to a lot of recent falls. he reports he has fallen 11 times in the last few weeks. he reports he has not broken any bones or had any injuries. he reports the first fall was outside and he was stuck on the ground for 3 hours. he reports he had a head CT recently with negative results for acute injury. he reports when he falls most of time he does not have his walker with him. he reports he does not use it in the house. Reported Pain Level Pain Score 0: Self Report Assessment PT Clinical Summary mr.s hays is a 76 yo man who presents to skilled PT services for evaluation and treatment of frequent falls. he does ahve a medical histroy of parkinsons disease, but for the past few weeks he has fallen 11 times or more. he presents this date with poor safety with transfers and ambulation, high fall risk, weakness in the LE's/core, and poor posture/body mechanics. he would do well to attend and participate in skilled PT services to improve his balance and safety, decrease fall risks, and return to greater independence in the home. patient may benefit from the transition to a maintenance program after this bout of skilled therapy. Plan of Care Interventions Gait Training,Manual Therapy,Neuro Re-education, Patient/Caregiver Educati,Therapeutic Activities, Therapeutic Exercise PT Services Indicated Yes Treatment Frequency and 3x weekly fro 12 visits Duration These treatments will address the objective and functional deficits as defined above. The patient will be advanced safely and appropriately in order for the patient to progress towards his/her prior level of function. Additional exercises will be introduced and as well as a comprehensive home exercise program upon discharge, if needed, ?to ensure carryover of functional gains achieved in the clinic. This treatment plan has been reviewed and agreement upon by the patient.
--- NOTE | 2021-12-25 15:28 | PTOPREEVAL ---
Assessment and note entered by JT File, PT Evaluation Information Assessment Status Re-evaluation Diagnosis parkinsons disease, frequent falls Onset 11/17/21 Subjective Information patient reports he feels good this date. he reports he has had no falls since beginning therapy. he reports he has no pain. his reports he is not doing exercises or walking at home. Reported Pain Level Pain Score 0: Self Report Assessment PT Clinical Summary mr. hays presents to skilled PT services for his 12th skilled therapy visit. as of this date, he does display slight increased hip and knee strength, improved ambulation speed/stride length and foot clearance in straight line ambulation, and decreased TUG and 5x sit to stand time. despite his decreased time for TUG and 5x sit to stand, patient continues to perform these tests/ transfers and ambulation with poor safety. he also presents with continued hip mm tightness, decreased balance per the tinetti, weakness in the hips and LE's, and poor motor planning/ coordination. he has made progress towards, but has not met goals for skilled restorative PT. given his diagnosis of parkinsons disease, decreased ability to independently work on balance , transfer safety, and coordination/motor planning at home, and risk for patient to continue to decline without continue skilled intervention, he would do well to continue skilled PT in a skilled maintenance program to prevent further decline in physical performance and safety. Plan of Care Interventions Gait Training,Neuro Re-education,Patient/Caregiver Educati,Therapeutic Activities,Therapeutic Exercise PT Services Indicated Yes Treatment Frequency and continue skilled PT in a maintenance program 1x Duration weekly for 4 visits. These treatments will address the objective and functional deficits as defined above. The patient will be advanced safely and appropriately in order for the patient to progress towards his/her prior level of function. Additional exercises will be introduced and as well as a comprehensive home exercise program upon discharge, if needed, ?to ensure carryover of functional gains achieved in the clinic. This treatment plan has been reviewed and agreement upon by the patient.
--- NOTE | 2022-03-10 16:13 | BUPTOPEVAL1 ---
Assessment and note entered by JT File, PT Evaluation Information Assessment Status Re-evaluation Diagnosis parkinsons disease, frequent falls Onset 11/17/21 Subjective Information patient and his are present for therapy today . his reports she struggles to get him to exercise at home, and he continues to have ups and downs with his balance, walking, and safety at home. he has had several falls. she reports she does think he does better when he goes to therapy. Reported Pain Level Pain Score 0: Self Report Assessment PT Clinical Summary mr. hays presents to skilled PT for his 25th therapy visit. he continues to present with signs and symptoms of parkinsons that affects his balance, gait, strength, memory, and safety. he is not complian with exercises at home at the moment , and appears to have plateaud again in his rehab. at this point, patient would do best to transition back into a maintenance program to try and maintain his balance, strength, ambulation, and safety performance. he was educated on the importance of performing HEP at home 2-3 days a week in addition to this 1x weekly maintenance program. patient, his , and PT fear he will decline significantly if he stops therapy all together. Plan of Care Interventions Gait Training,Neuro Re-education,Patient/Caregiver Educati,Therapeutic Activities,Therapeutic Exercise PT Services Indicated Yes Treatment Frequency and continue therapy 1x weekly for 4 visits for Duration maintenance protocol with patient to preventing worsening condition and quicker progression of parkinsons. These treatments will address the objective and functional deficits as defined above. The patient will be advanced safely and appropriately in order for the patient to progress towards his/her prior level of function. Additional exercises will be introduced and as well as a comprehensive home exercise program upon discharge, if needed, ?to ensure carryover of functional gains achieved in the clinic. This treatment plan has been reviewed and agreement upon by the patient.
== END 2022-03-05 14:08 | disposition still patient (30) ==
LOC: CHSPT 14:46
PROVIDERS: PCP Family Medicine; Visit Provider Family Medicine
DX: R29.6 Repeated falls (principal); G20 Parkinson's disease
CPT/HCPCS: 97110; 97112; 97161; 97530

== ENCOUNTER 2022-03-10 14:10 | Outpatient (RCR) | payer MEDICARE, SELFPAY | END 2022-03-10 15:11 | disposition home or self-care (01) | LOC: CHSPT 14:10 | PROVIDERS: PCP Family Medicine; Visit Provider Family Medicine | DX: R29.6 Repeated falls (principal); G20 Parkinson's disease | CPT/HCPCS: 97110; 97112; 97530 ==

== ENCOUNTER 2022-03-31 13:55 | Outpatient (CLI) | payer MEDICARE, SELFPAY ==
[2022-03-31 14:23] LABS: Basophils Absolute Auto 0.08 K/mm3 (0.00-0.10); Eosinophils Absolute Auto 0.19 K/mm3 (0.02-0.50); Eosinophils Percent Auto 2.4 % (1.0-6.0); Hematocrit 44.4 % (37.0-46.0); Hemoglobin 14.8 g/dL (12.4-15.3); Immature Granulocyte Absolute 0.02 K/mm3 (0.00-0.00); Immature Granulocyte Percent A 0.3 % (0.0-0.0); Lymphocytes Absolute Auto 0.77 K/mm3 (1.10-4.50); Lymphocytes Percent Auto 9.9 % (18.0-42.0); Mean Corpuscular HGB Conc 33.3 g/dL (32.0-36.0); Mean Corpuscular Hemoglobin 32.6 pg (27.0-31.0); Mean Corpuscular Volume 97.8 fL (78.0-102.0); Mean Platelet Volume 9.8 fl (8.7-11.0); Monocytes Absolute Auto 0.41 K/mm3 (0.10-0.90); Monocytes Percent Auto 5.3 % (2.0-11.0); Neutrophils Absolute Auto 6.3 K/mm3 (1.7-7.2); Neutrophils Percent Auto 81.1 % (50.0-70.0); Platelet Count Result 278 K/mm3 (150-420); Red Blood Count 4.54 M/mm3 (4.70-6.10); Red Cell Distribution Width 12.9 % (11.6-14.4); White Blood Count 7.8 K/mm3 (4.8-10.8)
[2022-03-31 14:43] LABS: Alanine Aminotransferase 29 U/L (16-63); Albumin Level 3.5 g/dL (3.4-5.0); Alkaline Phosphatase 139 U/L (46-116); Anion Gap 6 mmol/L (8-16); Aspartate Amino Transferase 22 U/L (15-37); Bilirubin,Total 0.7 mg/dL (0.00-1.00); Blood Urea Nitrogen 20 mg/dL (7-18); Calcium 8.5 mg/dL (8.5-10.1); Carbon Dioxide 31 mmol/L (21-32); Chloride 104 mmol/L (98-108); Estimated Glomerular Filt Rate 57; Glucose 98 mg/dL (70-99); Osmolality Calculated 294 mOsm/kg (285-295); Potassium 3.9 mmol/L (3.5-5.1); Sodium 141 mmol/L (136-145); Total Protein 7.4 g/dL (6.4-8.2)
[2022-04-02 21:47] LABS: Vitamin D 25 Hydroxy 53 ng/mL (30-100)
== END 2022-03-31 13:56 | disposition home or self-care (01) ==
PROVIDERS: PCP Family Medicine; Visit Provider Family Medicine
DX: E55.9 Vitamin D deficiency, unspecified (principal); R53.83 Other fatigue; I25.10 Atherosclerotic heart disease of native coronary artery without angina pectoris; E78.5 Hyperlipidemia, unspecified; D64.9 Anemia, unspecified
CPT/HCPCS: 36415; 80053; 82306; 84443; 85025

== ENCOUNTER 2022-04-08 15:10 | Emergency (ER) | payer MEDICARE, SELFPAY ==
--- NOTE | ~2022-04-08 | CT_ITS ---
EXAMINATION: CT brain wo con DATE: 04/08/2022 15:42 INDICATION: Head injury. Headache. TECHNIQUE: Computed tomography (CT) of the head was performed without intravenous contrast. The mA wa s adjusted according to patient size. Iterative reconstruction technique was employed. The dose-lengt h product was 681.00 mGy-cm. COMPARISON: Head CT 11/23/2021, 10/28/15 FINDINGS: There are scattered areas of low attenuation in the cerebral white matter, which is within normal limits for the patient's age. 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 There is no intracranial he morrhage, acute infarction, or abnormal intracranial mass lesion. The ventricles are dilated out of p roportion to the size of the sulci. There is mild mucosal thickening in the paranasal sinuses. There are likely changes of ocular lens replacement surgeries. The mastoid air cells are normal. IMPRESSION: 1. Chronic ventriculomegaly. Correlate clinically for normal pressure hydrocephalus. 2. 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 Reviewed, dictated and finalized at location A. [facility] IMPRESSION: 1. Chronic ventriculomegaly. Correlate clinically for normal pressure hydroceph alus. 2. 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
--- NOTE | ~2022-04-08 | US_ITS ---
US scrotum doppler INDICATION: Right testicular pain TECHNIQUE: Testicular sonogram utilizing grayscale and color Doppler FINDINGS: The testes are normal in size and appearance. No focal lesions are seen. The right testes measures 3.7 x 2.7 x 2.1 cm centimeters, and the left testis measures 3.4 x 2.2 x 2.3 cm cm. There is normal vascular flow to both testes. The right and left epididymides appear normal. There are small bilateral hydroceles. No evidence for varicocele. IMPRESSION: 1. Small bilateral hydroceles. Reviewed, dictated and finalized at location B. ED [employer]
[2022-04-08 15:10] VITALS: BP 151/53; PULSE 65; RESP 14; TEMP 36.3; O2SAT 100
--- NOTE | 2022-04-08 15:14 | ED.FALL ---
HPI - Fall General Chief Complaint: Fall Stated Complaint: fall/headache/ testicle pain Time Seen by Provider: 04/08/22 15:13 History of Present Illness HPI Narrative: Pt fell 5 days ago and struck head. Pt has persistent TINAJERO and family called PCP office and told to come to ER. also says the patient has testicular pain but not sure when that started. Pt is hard of hearing and answers most of the questions for him unless the question is posed directly to the patient and he answers appropriately. Pt denies urinary symptoms. Related Data Home Medications Medication Instructions Recorded Confirmed carbidopa 25 mg-levodopa 100 mg 1 tablet PO TID 06/11/20 03/24/22 tablet aspirin 81 mg tablet,delayed 81 mg PO DAILY 03/24/22 03/24/22 release Allergies Allergy/AdvReac Type Severity Reaction Status Date / Time hydrochlorothiazide Allergy Unknown Unknown Verified 04/08/22 15:20 Review of Systems Review of Systems: All systems reviewed & are unremarkable except as noted in HPI and below PMFSH Past Medical History Medical History (Updated 04/08/22 @ 16:16 by Rick Marshall III, DO) Cervical disc disease Coronary artery disease 03/2022 [place] with stenting Diverticulitis Encounter for immunization Hyperlipidemia Left lower lobe pulmonary nodule Parkinson disease Pneumonia Rotator cuff arthropathy of both shoulders Surgical History Surgical History (Updated 03/24/22 @ 10:08 by Shelby Whitfield CMA) H/O heart artery stent History of neck surgery History of shoulder surgery Family History Family History Father , father ultimately of CHF Malignant neoplasm of prostate Heart disease Sibling Family history of coronary artery disease Mother , mother of Alzheimer's No problems noted. Social History Social History Smoking status: Never smoker Second hand tobacco smoke exposure: No Alcohol intake: never Substance use: never Substance use type: does not use Lack of Transportation: No Lack of Food: Never True Current Housing: I Have Housing Concerned About Future Housing: No Difficulty Paying Gas/Electric Bills: No Difficulty Paying for Meds: No Currently Unemployed: No Difficulty w/ Childcare or Family Care: No Living arrangements: with family Occupation/Education: retired Gender identity (if verbalized by the patient): Male Spiritual care concerns: No Agree to blood products: Yes Exam Const: General: no acute distress Nutritional Appearance: thin Orientation/consciousness: patient oriented x3 Limitations: other limitations (hard of hearing) HENMT: Head: normal to inspection Eyes: Conjunctivae: conjunctivae normal EOM: EOMs intact bilaterally Neck: Neck: normal visual inspection and no meningeal signs Resp: Effort & Inspection: normal respiratory effort Auscultation: clear to auscultation bilaterally Cardio: Rate: regular rate Rhythm: regular rhythm GI: Auscultation: normal bowel sounds Back/Spine/Pelvis: Back: no CVA tenderness Skin: General skin exam: normal color Rashes: no rashes Wounds: no wounds Neuro: General: patient oriented x3, moves all extremities, no meningeal signs, no focal motor deficits and CN's II-XI intact bilaterally Speech: normal speech Extrem: General: normal to inspection and no clubbing, cyanosis or edema Psych: Mental Status: mental status grossly normal Affect: normal affect Attitude: cooperative Course Vital Signs Vital signs: Vital Signs Temperature 97.4 F L 04/08/22 15:10 Pulse Rate 65 04/08/22 15:10 Respiratory Rate 14 04/08/22 15:10 Blood Pressure 151/53 H 04/08/22 15:10 Pulse Oximetry 100 04/08/22 15:10 Oxygen Delivery Room Air 04/08/22 15:10 Temperature 98.2 F 04/08/22 16:10 Pulse Rate 66 04/08/22 16:10 Respiratory
[2022-04-08 16:10] VITALS: BP 146/62; PULSE 66; RESP 16; TEMP 36.8; O2SAT 99
== END 2022-04-08 16:19 | disposition home or self-care (01) ==
PROVIDERS: Emergency Provider Emergency Medicine; PCP Family Medicine
DX: S09.90XA Unspecified injury of head, initial encounter (principal); N43.3 Hydrocele, unspecified; I25.10 Atherosclerotic heart disease of native coronary artery without angina pectoris; E78.5 Hyperlipidemia, unspecified; G20 Parkinson's disease; W19.XXXA Unspecified fall, initial encounter
CPT/HCPCS: 70450; 76870; 93976; 99284

== ENCOUNTER 2022-10-08 09:58 | Outpatient (CLI) | payer MEDICARE, SELFPAY ==
[2022-10-08 10:16] LABS: Basophils Absolute Auto 0.09 K/mm3 (0.00-0.10); Basophils Percent Auto 1.2 % (0.0-1.0); Eosinophils Absolute Auto 0.31 K/mm3 (0.02-0.50); Hematocrit 44.9 % (37.0-46.0); Hemoglobin 15.1 g/dL (12.4-15.3); Immature Granulocyte Absolute 0.02 K/mm3 (0.00-0.00); Immature Granulocyte Percent A 0.3 % (0.0-0.0); Lymphocytes Absolute Auto 0.94 K/mm3 (1.10-4.50); Lymphocytes Percent Auto 12.1 % (18.0-42.0); Mean Corpuscular HGB Conc 33.6 g/dL (32.0-36.0); Mean Corpuscular Hemoglobin 34.1 pg (27.0-31.0); Mean Corpuscular Volume 101.4 fL (78.0-102.0); Mean Platelet Volume 9.4 fl (8.7-11.0); Monocytes Absolute Auto 0.58 K/mm3 (0.10-0.90); Monocytes Percent Auto 7.5 % (2.0-11.0); Neutrophils Absolute Auto 5.8 K/mm3 (1.7-7.2); Neutrophils Percent Auto 74.9 % (50.0-70.0); Platelet Count Result 236 K/mm3 (150-420); Red Blood Count 4.43 M/mm3 (4.70-6.10); Red Cell Distribution Width 13.1 % (11.6-14.4); White Blood Count 7.7 K/mm3 (4.8-10.8)
[2022-10-08 11:02] LABS: Alanine Aminotransferase 8 U/L (16-63); Albumin Level 3.6 g/dL (3.4-5.0); Alkaline Phosphatase 127 U/L (46-116); Anion Gap 3 mmol/L (8-16); Aspartate Amino Transferase 31 U/L (15-37); Bilirubin,Total 0.9 mg/dL (0.00-1.00); Blood Urea Nitrogen 19 mg/dL (7-18); Calcium 8.7 mg/dL (8.5-10.1); Carbon Dioxide 34 mmol/L (21-32); Chloride 104 mmol/L (98-108); Cholesterol 106 mg/dL (0-200); Estimated Glomerular Filt Rate > 60; Glucose 64 mg/dL (70-99); HDL Direct 48 mg/dL (40-60); LDL Cholesterol Calculated 51 mg/dL (<130); Osmolality Calculated 292 mOsm/kg (285-295); Potassium 4.4 mmol/L (3.5-5.1); Prostate Specific Antigen 0.9 ng/mL (< OR = 4.0); Sodium 141 mmol/L (136-145); Total Protein 7.3 g/dL (6.4-8.2); Triglycerides 36 mg/dL (0-150)
[2022-10-08 11:03] LABS: Thyroid Stimulating Hormone Reflex 1.74 u/IU/mL (0.36-3.74)
== END 2022-10-08 09:59 | disposition home or self-care (01) ==
LOC: CHSLAB 09:59
PROVIDERS: PCP Family Medicine; Visit Provider Family Medicine
DX: I25.10 Atherosclerotic heart disease of native coronary artery without angina pectoris (principal); E78.2 Mixed hyperlipidemia; Z12.5 Encounter for screening for malignant neoplasm of prostate; R53.83 Other fatigue
CPT/HCPCS: 36415; 80053; 80061; 84153; 84443; 85025; G0103

== ENCOUNTER 2022-10-08 19:13 | Observation (INO) | payer MEDICARE, SELFPAY ==
[2022-10-08] VITALS (7 sets, daily range): BP systolic 170–180; BP diastolic 68–95; PULSE 74–87; RESP 17–20; TEMP 36.4–36.6; O2SAT 95–99; BMI 18.8
--- NOTE | ~2022-10-08 | CT_ITS ---
EXAMINATION: CT brain wo con DATE: 10/08/2022 19:52 INDICATION: Head injury. TECHNIQUE: Computed tomography (CT) of the head was performed without intravenous contrast. The mA wa s adjusted according to patient size. Iterative reconstruction technique was employed. The dose-lengt h product was 681.00 mGy-cm. 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 There is diffuse brain volume loss. There are scattere d areas of low attenuation in the cerebral white matter, which is within normal limits for the patien t's age. There is no intracranial hemorrhage, acute infarction, or abnormal intracranial mass lesion. The ventricles are enlarged out of proportion to the size of the sulci. There are likely changes of ocular lens replacement surgeries. There are fractures of the nasal bones, nasal processes of maxilla , and nasal septum. The mastoid air cells are normal. There is a frontal scalp hematoma. There is sof t tissue swelling of the nose. IMPRESSION: 1. 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 2. Chronic ventriculomegaly. Correlate clinically for normal pressure hydrocephalus. 3. Acute fractures of the nasal bones, nasal processes of maxilla, and nasal septum. Reviewed, dictated and finalized at location E. IMPRESSION: 1. 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 2. Chronic ventriculomegaly. Correlate clinically for normal pressure hydroceph alus. 3. Acute fractures of the nasal bones, nasal processes of maxilla, and nasal se ptum.
--- NOTE | ~2022-10-08 | CT_ITS ---
EXAMINATION: CT facial & cervical spine wo DATE: 10/08/2022 19:52 INDICATION: Head injury. TECHNIQUE: Computed tomography (CT) of the maxillofacial region and cervical spine was performed with out intravenous contrast. Automated exposure control and iterative reconstruction technique were empl oyed. The dose-length product was 285.48 mGy-cm. COMPARISON: CT cervical spine 11/23/2021, head CT 11/23/2021 FINDINGS: MAXILLOFACIAL CT: There is a frontal scalp hematoma. There is soft tissue swelling of the nose. There are likely change s of ocular lens replacement surgeries. There are fractures of the nasal bones, nasal processes of ma xilla, and nasal septum. There is mucosal thickening in the paranasal sinuses. CERVICAL SPINE CT: There is scarring at the lung apices. There is 2 mm retrolisthesis of C3 on C4. There are changes of posterior fusion procedure from C3 to C5 with lateral mass screws. There is interbody fusion from C5 to C7. There is mildly decreased disc height at C3-C4. There are old healed bilateral rib fractures. The following disc levels are specifically discussed: C2-C3: There is mild right uncovertebral joint hypertrophy. There is mild bilateral facet joint osteo arthritis. There is mild right neural foraminal stenosis. There is no central canal stenosis. C3-C4: There is ankylosis of the uncovertebral joints without hypertrophy. There is mild bilateral fa cet joint hypertrophy. There is mild bilateral neural foraminal stenosis. There is mild central canal stenosis with posterior decompression. C4-C5: There is mild bilateral uncovertebral joint hypertrophy. There is severe bilateral facet joint hypertrophy. There is moderate bilateral neural foraminal stenosis. There is mild central canal sten osis. C5-C6: There is no uncovertebral joint hypertrophy. There is no facet joint hypertrophy. There is no neural foraminal stenosis. There is no central canal stenosis. C6-C7: There is no uncovertebral joint hypertrophy. There is no facet joint hypertrophy. There is no neural foraminal stenosis. There is no central canal stenosis. C7-T1: There is no uncovertebral joint osteoarthritis. There is severe bilateral facet joint osteoart hritis. There is mild left neural foraminal stenosis. There is no central canal stenosis. IMPRESSION: 1. Acute fractures of the nasal bones, nasal processes of maxilla, and nasal septum. 2. Mild cervical spondylosis. 3. Posterior fusion procedure from C3 to C5. Reviewed, dictated and finalized at location E. IMPRESSION: 1. Acute fractures of the nasal bones, nasal processes of maxilla, and nasal se ptum. 2. Mild cervical spondylosis. 3. Posterior fusion procedure from C3 to C5.
[2022-10-08] MEDS: TETANUS,DIPHTHERIA,AC PERTUSSIS ADULT 0.5 ML (ADACEL) IM (19:57)
[2022-10-08] MEDS: KETOROLAC 30 MG/ML VIAL (*BKC) IM (19:58)
[2022-10-08 19:59] LABS: Basophils Absolute Auto 0.06 K/mm3 (0.00-0.10); Basophils Percent Auto 0.8 % (0.0-1.0); Eosinophils Absolute Auto 0.27 K/mm3 (0.02-0.50); Eosinophils Percent Auto 3.8 % (1.0-6.0); Hematocrit 41.4 % (37.0-46.0); Hemoglobin 13.8 g/dL (12.4-15.3); Immature Granulocyte Absolute 0.02 K/mm3 (0.00-0.00); Immature Granulocyte Percent A 0.3 % (0.0-0.0); Lymphocytes Absolute Auto 0.73 K/mm3 (1.10-4.50); Lymphocytes Percent Auto 10.2 % (18.0-42.0); Mean Corpuscular HGB Conc 33.3 g/dL (32.0-36.0); Mean Corpuscular Hemoglobin 33.7 pg (27.0-31.0); Mean Platelet Volume 9.5 fl (8.7-11.0); Monocytes Absolute Auto 0.54 K/mm3 (0.10-0.90); Monocytes Percent Auto 7.5 % (2.0-11.0); Neutrophils Absolute Auto 5.6 K/mm3 (1.7-7.2); Neutrophils Percent Auto 77.4 % (50.0-70.0); Platelet Count Result 219 K/mm3 (150-420); Red Cell Distribution Width 13.1 % (11.6-14.4); White Blood Count 7.2 K/mm3 (4.8-10.8)
[2022-10-08 20:15] LABS: Partial Thromboplastin Time 25.4 SEC (23.90-30.70); Prothrombin Time 11.3 Seconds (9.50-12.10)
[2022-10-08 20:16] LABS: Alanine Aminotransferase 8 U/L (16-63); Albumin Level 3.3 g/dL (3.4-5.0); Alkaline Phosphatase 117 U/L (46-116); Anion Gap 5 mmol/L (8-16); Aspartate Amino Transferase 19 U/L (15-37); Bilirubin,Total 0.6 mg/dL (0.00-1.00); Blood Urea Nitrogen 22 mg/dL (7-18); Calcium 8.4 mg/dL (8.5-10.1); Carbon Dioxide 31 mmol/L (21-32); Chloride 105 mmol/L (98-108); Estimated Glomerular Filt Rate > 60; Glucose 107 mg/dL (70-99); Osmolality Calculated 295 mOsm/kg (285-295); Potassium 4.3 mmol/L (3.5-5.1); Sodium 141 mmol/L (136-145); Total Protein 6.6 g/dL (6.4-8.2)
--- NOTE | 2022-10-08 20:26 | ED.FALL ---
HPI - Fall General Chief Complaint: Fall Stated Complaint: FALL Time Seen by Provider: 10/08/22 19:25 Source: patient and family Mode of arrival: EMS Limitations: no limitations History of Present Illness HPI Narrative: is a 76-year-old male that had a ground level fall after he tripped and face planted on to the concrete surface did not lose consciousness did have abrasions and deformity of the nasal bones with some currently no nausea or vomiting no drainage from the ears did have a nosebleed and the patient was given a nasal packing with Treximet acid, patient has a history of dementia with Parkinson's disease history of chronic hydrocele with CAD. Patient has no neurological deficits. complaint: fall Onset (ago): hour(s) Fall from: standing Fall witnessed: yes, by family Place fall occurred: street Loss of consciousness: none Prolonged down time: no Severity: moderate Related Data Home Medications Medication Instructions Recorded Confirmed carbidopa 25 mg-levodopa 100 mg 1 tablet PO TID 06/11/20 10/08/22 tablet aspirin 81 mg tablet,delayed 81 mg PO DAILY 03/24/22 10/08/22 release ergocalciferol (vitamin D2) 1,250 1,250 mcg PO WEEKLY 10/08/22 10/08/22 mcg (50,000 unit) capsule mirabegron 50 mg tablet,extended 50 mg PO DAILY 10/08/22 10/08/22 release 24 hr (Myrbetriq) Allergies Allergy/AdvReac Type Severity Reaction Status Date / Time hydrochlorothiazide Allergy Unknown Unknown Verified 10/06/22 11:34 Review of Systems Review of Systems: All systems reviewed & are unremarkable except as noted in HPI and below PMFSH Past Medical History Medical History Cervical disc disease Coronary artery disease 03/2022 [place] with stenting Diverticulitis Encounter for immunization Hyperlipidemia Left lower lobe pulmonary nodule Parkinson disease Pneumonia Rotator cuff arthropathy of both shoulders Surgical History Surgical History H/O heart artery stent History of neck surgery History of shoulder surgery Family History Family History Father , father ultimately of CHF Malignant neoplasm of prostate Heart disease Sibling Family history of coronary artery disease Mother , mother of Alzheimer's No problems noted. Social History Social History Smoking status: Never smoker Second hand tobacco smoke exposure: No Alcohol intake: never Substance use: never Substance use type: does not use Lack of Transportation: No Lack of Food: Never True Current Housing: I Have Housing Concerned About Future Housing: No Difficulty Paying Gas/Electric Bills: No Difficulty Paying for Meds: No Currently Unemployed: No Difficulty w/ Childcare or Family Care: No Living arrangements: with family Occupation/Education: retired Gender identity (if verbalized by the patient): Male Spiritual care concerns: No Agree to blood products: Yes Exam Const: General: no acute distress Nutritional Appearance: well nourished Limitations: behavioral limitations Other: Has a history of dementia and Parkinson's disease HENMT: Ears: external ears normal Face/Nose/Sinus: Epistaxis present Other: abrasions facial area of her nasal bridge and a frontal scalp area and abrasions to the knees Eyes: Pupils: Equal, round and reactive pupils present EOM: EOMs intact bilaterally Direct Ophthalmoscopy: no photophobia Neck: Neck: normal visual inspection Chest: Chest palpation & inspection: normal inspection of the chest Resp: Effort & Inspection: normal respiratory effort Auscultation: clear to auscultation bilaterally Cardio: Rate: regular rate Rhythm: regular rhythm GI: Auscultation: normal bowel sounds Back/Spine/Pelvis:
--- NOTE | 2022-10-08 20:33 | PC.NURSE ---
Report back, C-collar removed per ERP and nasal clamp removed no active bleeding at this time.
--- NOTE | 2022-10-08 21:50 | PC.NURSE ---
Call placed to floor for 23 hr obs bed. Pt will go to Rm [id number]
--- NOTE | 2022-10-08 22:00 | PM.IMHP ---
H&P: HPI History of Present Illness Date/Time: 10/08/22 22:00 Chief Complaint: fall, nasal bone fracture Narrative: This is a 76 year old gentleman with a past medical history of CAD 03/2022 [place] with stenting on Brilinta, diverticulitis, HLD, dementia, Parkinson disease, falls, and normal pressure hydrocephalus. He presented to [facility] ED after sustaining a ground level fall, tripping in the driveway and face planting onto the concrete. He did not have LOC but does have significant abrasions and deformity of the nasal bones with nasal bleeding. CT head in the ED was negative for a head bleed but did show known normal pressure hydrocephalus, old infarct in the maurice, and acute fractures of the nasal bones, nasal processes of maxilla, and nasal septum. Nasal bleeding was controlled with gauze soaked tranexamic acid nasal packing and a nasal clip and bleeding had stopped prior to floor admission. He was admitted overnight as inpatient observation for PT and OT evaluation and neuro checks. 10/09: [facility] Past Medical History Medical History Cervical disc disease Coronary artery disease 03/2022 [place] with stenting Diverticulitis Encounter for immunization Hyperlipidemia Left lower lobe pulmonary nodule Parkinson disease Pneumonia Rotator cuff arthropathy of both shoulders Surgical History Surgical History H/O heart artery stent History of neck surgery History of shoulder surgery Family History Family History Father , father ultimately of CHF Malignant neoplasm of prostate Heart disease Sibling Family history of coronary artery disease Mother , mother of Alzheimer's No problems noted. Social History Social History Smoking status: Never smoker Second hand tobacco smoke exposure: No Alcohol intake: never Substance use: never Substance use type: does not use Lack of Transportation: No Lack of Food: Never True Current Housing: I Have Housing Concerned About Future Housing: No Difficulty Paying Gas/Electric Bills: No Difficulty Paying for Meds: No Currently Unemployed: No Difficulty w/ Childcare or Family Care: No Living arrangements: with family Occupation/Education: retired Gender identity (if verbalized by the patient): Male Spiritual care concerns: No Agree to blood products: Yes Meds Home Medications and Allergies Home Medications Medication Instructions Recorded Confirmed Type carbidopa 25 mg-levodopa 100 mg 1 tablet PO TID 06/11/20 10/08/22 History tablet atorvastatin 40 mg tablet 40 mg PO DAILY #90 tabs 03/19/22 10/08/22 Rx ticagrelor 90 mg tablet 90 mg PO Q12H #60 tabs 03/19/22 10/08/22 Rx aspirin 81 mg tablet,delayed 81 mg PO DAILY 03/24/22 10/08/22 History release omeprazole 40 mg capsule,delayed See Rx Instructions .Route 06/01/22 10/08/22 Rx release .COMPLEX #90 caps tamsulosin 0.4 mg capsule See Rx Instructions .Route 06/12/22 10/08/22 Rx .COMPLEX #90 caps metoprolol succinate 50 mg 50 mg PO DAILY #90 tabs 09/10/22 10/08/22 Rx tablet,extended release 24 hr fluoxetine 10 mg capsule 10 mg PO DAILY #30 caps 10/06/22 10/08/22 Rx ergocalciferol (vitamin D2) 1,250 1,250 mcg PO WEEKLY 10/08/22 10/08/22 History mcg (50,000 unit) capsule mirabegron 50 mg tablet,extended 50 mg PO DAILY 10/08/22 10/08/22 History release 24 hr (Myrbetriq) Allergies Allergy/AdvReac Type Severity Reaction Status Date / Time hydrochlorothiazide Allergy Unknown Unknown Verified 10/06/22 11:34 Vital Signs Vital Signs - 24 hr 10/08/22 19:20 10/08/22 20:34 10/08/22 21:39 Temperature 98 F Pulse Rate 78 87 74 Respiratory Rate 20 18 20 Blood Pressure 172/68 H 170/71 H 180/84 H Pulse Oximetry 98 95 97 Oxygen Deliv
--- NOTE | 2022-10-08 22:40 | ADMGEN ---
This patient, Merritt Marrero, was admitted to 2nd Floor Room 207-1. Patient/family oriented to hospital policies and general routines including ID bracelet, bed and alarms, visiting hours, pain management, procedures, bathroom and other care routines, personal items, smoking policy, room service/diet, and visiting hours. Information on how to activate the Rapid Response Team has been discussed. Patient/Family are encouraged to report perceived risks to care and to ask questions if they do not understand what they are told or what they should do.
[2022-10-08] MEDS: METOPROLOL SUCCINATE EXT REL 50 MG TABCR PO (23:38)
[2022-10-08] MEDS: TAMSULOSIN HCL 0.4 MG CAPSULE BY MOUTH (23:38)
[2022-10-09 04:00] VITALS: BP 178/93; PULSE 78; RESP 16; TEMP 36.4; O2SAT 98
[2022-10-09 05:27] LABS: Basophils Absolute Auto 0.06 K/mm3 (0.00-0.10); Basophils Percent Auto 0.7 % (0.0-1.0); Eosinophils Absolute Auto 0.27 K/mm3 (0.02-0.50); Eosinophils Percent Auto 3.1 % (1.0-6.0); Hematocrit 42.9 % (37.0-46.0); Hemoglobin 14.5 g/dL (12.4-15.3); Immature Granulocyte Absolute 0.03 K/mm3 (0.00-0.00); Immature Granulocyte Percent A 0.3 % (0.0-0.0); Lymphocytes Absolute Auto 0.97 K/mm3 (1.10-4.50); Lymphocytes Percent Auto 11.3 % (18.0-42.0); Mean Corpuscular HGB Conc 33.8 g/dL (32.0-36.0); Mean Corpuscular Hemoglobin 33.6 pg (27.0-31.0); Mean Corpuscular Volume 99.5 fL (78.0-102.0); Mean Platelet Volume 9.3 fl (8.7-11.0); Monocytes Absolute Auto 0.61 K/mm3 (0.10-0.90); Monocytes Percent Auto 7.1 % (2.0-11.0); Neutrophils Absolute Auto 6.7 K/mm3 (1.7-7.2); Neutrophils Percent Auto 77.5 % (50.0-70.0); Platelet Count Result 221 K/mm3 (150-420); Red Blood Count 4.31 M/mm3 (4.70-6.10); Red Cell Distribution Width 12.9 % (11.6-14.4); White Blood Count 8.6 K/mm3 (4.8-10.8)
[2022-10-09 05:42] LABS: Partial Thromboplastin Time 26.3 SEC (23.90-30.70); Prothrombin Time 10.9 Seconds (9.50-12.10)
[2022-10-09 05:45] LABS: Alanine Aminotransferase 31 U/L (16-63); Albumin Level 3.5 g/dL (3.4-5.0); Alkaline Phosphatase 124 U/L (46-116); Anion Gap 4 mmol/L (8-16); Aspartate Amino Transferase 23 U/L (15-37); Bilirubin,Total 0.7 mg/dL (0.00-1.00); Blood Urea Nitrogen 19 mg/dL (7-18); Calcium 8.7 mg/dL (8.5-10.1); Carbon Dioxide 30 mmol/L (21-32); Chloride 105 mmol/L (98-108); Estimated CRCL calculation 46 ml/min; Estimated Glomerular Filt Rate > 60; Glucose 117 mg/dL (70-99); Magnesium 2.1 mg/dL (1.8-2.4); Osmolality Calculated 291 mOsm/kg (285-295); Potassium 4.2 mmol/L (3.5-5.1); Sodium 139 mmol/L (136-145); Total Protein 7.1 g/dL (6.4-8.2)
[2022-10-09 08:00] VITALS: BP 145/55; PULSE 65; RESP 16; TEMP 36.4; O2SAT 95
[2022-10-09] MEDS: CARBIDOPA/LEVODOPA 25/100 MG TABLET 1 TABLET PO ×2 (09:33→12:55)
[2022-10-09] MEDS: MIRABEGRON 25 MG ER TABLET 50 MG PO (09:33)
[2022-10-09] MEDS: FLUoxetine HCL 10 MG CAPSULE PO (09:33)
[2022-10-09 09:34] VITALS: PULSE 63
[2022-10-09] MEDS: PANTOPRAZOLE 40 MG TABLET PO (09:34)
[2022-10-09] MEDS: METOPROLOL SUCCINATE EXT REL 50 MG TABCR PO (09:34)
[2022-10-09] MEDS: DOCUSATE SODIUM 100 MG CAPSULE PO (09:34)
[2022-10-09] MEDS: ATORVASTATIN 40 MG TABLET PO (09:34)
[2022-10-09] MEDS: traMADol HCL (*CRX) 50 MG TABLET PO (10:44)
--- NOTE | 2022-10-09 11:02 | PM.SD2 ---
Same Day Admit/Disch: HPI History of Present Illness Chief complaint: FALL HEAD INJURY Narrative: Merritt Marrero is a 76 year old gentleman with a past medical history of CAD 03/2022 [place] with stenting on Brilinta, diverticulitis, HLD, dementia, Parkinson disease, falls, and normal pressure hydrocephalus. He presented to [facility] after sustaining a ground level fall, tripping in the driveway and face planting onto the concrete. He did not have LOC but does have significant abrasions and deformity of the nasal bones with nasal bleeding. CT head in the ED was negative for a head bleed but did show known normal pressure hydrocephalus, old infarct in the maurice, and acute fractures of the nasal bones, nasal processes of maxilla, and nasal septum. Nasal bleeding was controlled with gauze soaked tranexamic acid nasal packing and a nasal clip and bleeding had stopped prior to floor admission. He was admitted overnight as inpatient observation for PT and OT evaluation and neuro checks. 10/09: Patient is seen today with significant bruising to bilateral eyes. His bleeding has resolved and his pain is controlled per his reports. He had initially had some high blood pressures on admission but when I checked his blood pressure at the bedside today it was 138/60. He is ready to discharge home. His neuro checks have remained unchanged and he has not had any recurrent bleeding. I plan to discharge him today with home health consult and PCP follow up for re-starting his Brilinta. [facility] Past Medical History Medical History Cervical disc disease Coronary artery disease 03/2022 [place] with stenting Diverticulitis Encounter for immunization Hyperlipidemia Left lower lobe pulmonary nodule Parkinson disease Pneumonia Rotator cuff arthropathy of both shoulders Surgical History Surgical History H/O heart artery stent History of neck surgery History of shoulder surgery Family History Family History Father , father ultimately of CHF Malignant neoplasm of prostate Heart disease Sibling Family history of coronary artery disease Mother , mother of Alzheimer's No problems noted. Social History Social History Smoking status: Never smoker Second hand tobacco smoke exposure: No Alcohol intake: never Substance use: never Substance use type: does not use Lack of Transportation: No Lack of Food: Never True Current Housing: I Have Housing Concerned About Future Housing: No Difficulty Paying Gas/Electric Bills: No Difficulty Paying for Meds: No Currently Unemployed: No Difficulty w/ Childcare or Family Care: No Living arrangements: with family Occupation/Education: retired Gender identity (if verbalized by the patient): Male Spiritual care concerns: No Agree to blood products: Yes Same Day Admit/Disch: Med Pre-admit Medications Home Medications Medication Instructions Recorded Confirmed Type carbidopa 25 mg-levodopa 100 mg 1 tablet PO TID 06/11/20 10/08/22 History tablet atorvastatin 40 mg tablet 40 mg PO DAILY #90 tabs 03/19/22 10/08/22 Rx ticagrelor 90 mg tablet 90 mg PO Q12H #60 tabs 03/19/22 10/08/22 Rx aspirin 81 mg tablet,delayed 81 mg PO DAILY 03/24/22 10/08/22 History release omeprazole 40 mg capsule,delayed See Rx Instructions .Route 06/01/22 10/08/22 Rx release .COMPLEX #90 caps tamsulosin 0.4 mg capsule See Rx Instructions .Route 06/12/22 10/08/22 Rx .COMPLEX #90 caps metoprolol succinate 50 mg 50 mg PO DAILY #90 tabs 09/10/22 10/08/22 Rx tablet,extended release 24 hr fluoxetine 10 mg capsule 10 mg PO DAILY #30 caps 10/06/22 10/08/22 Rx ergocalciferol (vitamin D2) 1,250 1,250 mcg PO WEEKLY 10/08/22 10/08/22 History mcg (50,000 unit) capsule
[2022-10-09 12:00] VITALS: BP 136/68; PULSE 66; RESP 16; TEMP 36.6; O2SAT 96
--- NOTE | 2022-10-09 14:21 | PC.NURSE ---
Patient escorted to private vehicle via wheelchair and gait belt. Assisted into private vehicle with spouse. Left facility at 1400.
--- NOTE | 2022-10-09 14:45 | PCCCNOTE ---
Rec'd call from Home Health and they do not have staff in area to care for pt. Pt has discharged prior to getting this call. Will notify pt of same and will continue to find a home health to see him.
--- NOTE | 2022-10-09 15:18 | PCCCNOTE ---
[facility] unable to accept pt. [facility] did not answer phone. M states send referral and they will look at it Wednesday. Called pt/ and they said to send referral to [facility] who can see him next week. Referral faxed to [facility].
--- NOTE | 2022-10-13 10:12 | PC.NURSE ---
Discharge call back attempted, no answer
--- NOTE | 2022-10-15 09:38 | PC.NURSE ---
discharge call back completed, doing well, to see neurosurgeon today, [facility], care always good
== END 2022-10-09 14:00 | disposition home health service (06) ==
LOC: CHSED 21:28 → CHS2ND 22:01
PROVIDERS: Nurse Practitioner Acute Care; Admitting Provider Internal Medicine; Emergency Provider Emergency Medicine; PCP Family Medicine; Visit Provider Internal Medicine
DX: S02.2XXA Fracture of nasal bones, initial encounter for closed fracture (principal); G20 Parkinson's disease; F02.80 Dementia in other diseases classified elsewhere, unspecified severity, without behavioral disturbance, psychotic disturbance, mood disturbance, and anxiety; I25.10 Atherosclerotic heart disease of native coronary artery without angina pectoris; I25.2 Old myocardial infarction; K57.30 Diverticulosis of large intestine without perforation or abscess without bleeding; E78.5 Hyperlipidemia, unspecified; R29.6 Repeated falls; G91.2 (Idiopathic) normal pressure hydrocephalus; W19.XXXA Unspecified fall, initial encounter; Z95.5 Presence of coronary angioplasty implant and graft; Z79.02 Long term (current) use of antithrombotics/antiplatelets; Z79.82 Long term (current) use of aspirin
CPT/HCPCS: 36415; 70450; 70486; 72125; 80053; 83735; 85025; 85610; 85730; 90471; 90715; 96372; 97161; 99285; A9270; G0378; J1885; L0150

== ENCOUNTER 2022-10-25 15:38 | Emergency (ER) | payer MEDICARE, SELFPAY ==
[2022-10-25] VITALS (12 sets, daily range): BP systolic 125–192; BP diastolic 50–83; PULSE 59–87; RESP 12–20; TEMP 36.6; O2SAT 97–99
--- NOTE | ~2022-10-25 | CT_ITS ---
EXAMINATION: CT brain wo con DATE: 10/25/2022 18:04 INDICATION: Altered mental status TECHNIQUE: Computed tomography (CT) of the head was performed without intravenous contrast. Sagittal and coronal reconstructions were performed. The mA was adjusted according to patient size. Iterative reconstruction technique was employed. The dose-length product was 681.00 mGy-cm. COMPARISON: head CT dated 10/08/22 FINDINGS: No calvarial fracture. Unchanged old infarct in the maurice. There is a 12 x 6 x 9 mm masslike hyperdens e lesion in the right lateral ventricle near the foramen of Monterroso which is new since CT from less th an one month prior which would favor a small intraventricular hemorrhage over other neoplasm or compl ex colloid cyst. There is a minimal amount of additional interventricular hemorrhage layering posteri sartia in the occipital horns of both the left and right lateral ventricles. There is a small fluid col lection of near CSF attenuation overlying the left frontal lobe measuring up to 7 mm in thickness whi ch is also new since the prior study suspicious for a now subacute subdural hematoma. No associated m idline shift. No acute acute infarction. No interval change in chronic ventriculomegaly involving kapil gama the left and right lateral ventricles. Changes of bilateral intraocular lens replacement. Agai n seen are now subacute fractures of the bilateral nasal bones which are in improved alignment when c ompared with the prior study. Mild mucosal thickening the bilateral ethmoid sinuses. Mastoid air cell s and middle ear cavities are clear. IMPRESSION: 1. New small amount of intraventricular hemorrhage which has high attenuation likely relatively acute . 2. Small relatively low attenuation fluid collection overlying the left frontal lobe which is new sin ce the prior study suggesting subacute subdural hematoma. This and the intraventricular hemorrhage we re discussed with Dr. Metzger at 6:25 PM. 3. Chronic pontine infarct. 4. Chronic ventriculomegaly which could be related to a central predominant atrophy or normal pressur e hydrocephalus (NPH: clinical triad ataxia/gait disturbance, dementia, urinary incontinence). 5. Improved alignment of subacute bilateral nasal bone fractures. Reviewed, dictated and finalized at location A. IMPRESSION: 1. New small amount of intraventricular hemorrhage which has high attenuation l ikely relatively acute. 2. Small relatively low attenuation fluid collection overlying the left frontal lobe which is new since the prior study suggesting subacute subdural hematoma. This and the intraventricular hemorrhage were discussed with Dr. Metzger at 6:25 PM. 3. Chronic pontine infarct. 4. Chronic ventriculomegaly which could be related to a central predominant atr ophy or normal pressure hydrocephalus (NPH: clinical triad ataxia/gait disturba nce, dementia, urinary incontinence). 5. Improved alignment of subacute bilateral nasal bone fractures.
--- NOTE | ~2022-10-25 | CT_ITS ---
EXAMINATION: CT cervical spine wo con DATE: 10/25/2022 18:04 INDICATION: Cervical pain post fall TECHNIQUE: Computed tomography (CT) of the cervical spine was performed without intravenous contrast. Automated exposure control and iterative reconstruction technique were employed. The dose-length pro duct was 284.02 mGy-cm. COMPARISON: 10/08/2022 FINDINGS: Unchanged 2 mm retrolisthesis C3 on C4. No acute fracture. C4 and C5 laminectomies and partial C3 jarquin inectomy. See 3 5 posterior spinal fusion with bilateral vertical danyel and lateral mass screw fixation . C5-C7 anterior spinal fusion with likely developmental fusion of the posterior elements of C6 and C 7. Moderate to severe facet osteoarthritis bilaterally at C7-T1 through T2-T3. Mild disc height loss at C3-C4. Moderate neural from stenosis bilaterally at C4-C5 and mild neural foraminal stenosis bilat erally at C3-C4 and on the left at C7-T1. No significant central canal stenosis. Old healed fractures of the posterior right second and left first ribs. Mild atherosclerotic ossicle is noted bilateral c arotid bulbs. Cervical soft tissues are otherwise unremarkable. Mild biapical pleural-parenchymal sca rring. IMPRESSION: 1. Mild cervical spondylosis with chronic postoperative changes as detailed above. No acute osseous a bnormality. Reviewed, dictated and finalized at location A. IMPRESSION: 1. Mild cervical spondylosis with chronic postoperative changes as detailed abo ve. No acute osseous abnormality.
--- NOTE | ~2022-10-25 | XR_ITS ---
EXAMINATION: XR chest 1V portable DATE: 10/25/2022 17:14 INDICATION: Altered mental status. TECHNIQUE: frontal view of the chest was obtained. COMPARISON: Chest radiograph dated 06/01/[address] dated 03/27/2019 FINDINGS: Again seen is a subtle airspace opacity right lower lung zone appears to correspond with a band of di scoid atelectasis/scarring on the prior CT. No other airspace opacities, pulmonary edema, pleural eff usion or pneumothorax. The cardiomediastinal silhouette is normal. Versus left total shoulder arthrop lasty. Partially visualized bilateral vertical danyel and lateral mass screws the lower cervical spine f or instrumented posterior spinal fusion. IMPRESSION: 1. Persistent opacities in the right lower lung zone and favor unchanged atelectasis/scarring over pn eumonia. Reviewed, dictated and finalized at location A. IMPRESSION: 1. Persistent opacities in the right lower lung zone and favor unchanged atelec tasis/scarring over pneumonia.
--- NOTE | 2022-10-25 15:51 | ED.GENADULT ---
HPI - General Adult General Chief complaint: Unspecified <Sammy Metzger PA-C - Last Filed: 10/27/22 17:01> Stated complaint: Rib/Neck Pain <Sammy Metzger PA-C - Last Filed: 10/27/22 17:01> Time Seen by Provider: 10/25/22 15:44 <Sammy Metzger PA-C - Last Filed: 10/27/22 17:01> Source: patient and family <Sammy Metzger PA-C - Last Filed: 10/27/22 17:01> Mode of arrival: EMS <Sammy Metzger PA-C - Last Filed: 10/27/22 17:01> Limitations: dementia <Sammy Metzger PA-C - Last Filed: 10/27/22 17:01> History of Present Illness HPI narrative: This is a 77-year-old male with PMH of dementia, CAD, CVA who presents to the ED via EMS from [facility] with chief complaint of back pain and left shoulder pain after he woke up today. He denies recent traumatic injury falling down 15 stairs in the past several years and is on his feet stronger visually. He has multiple fractures, possible right clavicle fracture and possible C-spine involvement. Family is here and states patient was placed in the facility for rehab 2 days ago and has been doing worse and worse ever since being released. Family reports he was up and walking around at [facility] and he has been becoming more altered and less mobile. Apparently he took oxycodone today as prescribed with no relief so he was sent here. Patient states he has pain in his neck and his right shoulder. Denies chest or rib pain. Family denies any more recent injuries. Family is concerned because he is becoming more confused than his baseline. Alert and oriented x1 at this time and he is normally at least alert and oriented x2. <Sammy Metzger PA-C - Last Filed: 10/27/22 17:01> Related Data Home medications: Home Medications Medication Instructions Recorded Confirmed carbidopa 25 mg-levodopa 100 mg 1 tablet PO TID 06/11/20 10/08/22 tablet aspirin 81 mg tablet,delayed 81 mg PO DAILY 03/24/22 10/08/22 release mirabegron 50 mg tablet,extended 50 mg PO DAILY 10/08/22 10/08/22 release 24 hr (Myrbetriq) <Sammy Metzger PA-C - Last Filed: 10/27/22 17:01> Allergies/adverse reactions: Allergies Allergy/AdvReac Type Severity Reaction Status Date / Time hydrochlorothiazide Allergy Unknown Unknown Verified 10/25/22 15:41 <Sammy Metzger PA-C - Last Filed: 10/27/22 17:01> Review of Systems Review of Systems: All systems as dictated in HPI <Sammy Metzger PA-C - Last Filed: 10/27/22 17:01> [facility] Past Medical History Medical History: Medical History Cervical disc disease Coronary artery disease 03/2022 [place] with stenting Diverticulitis Encounter for immunization Hyperlipidemia Left lower lobe pulmonary nodule Parkinson disease Pneumonia Rotator cuff arthropathy of both shoulders <Sammy Metzger PA-C - Last Filed: 10/27/22 17:01> Surgical History Surgical History: Surgical History H/O heart artery stent History of neck surgery History of shoulder surgery <Sammy Metzger PA-C - Last Filed: 10/27/22 17:01> Family History Family History: Family History Father , father ultimately of CHF Malignant neoplasm of prostate Heart disease Sibling Family history of coronary artery disease Mother , mother of Alzheimer's No problems noted. <Sammy Metzger PA-C - Last Filed: 10/27/22 17:01> Social History Social History: Social History Smoking status: Never smoker Second hand tobacco smoke exposure: No Alcohol intake: never Substance use: never Substance use type: does not use Lack of Transportation: No Lack of Food: Never True Current Housing: I Have Housing Concerned About Future Housing: No Difficulty Paying Gas/Electric B
[2022-10-25] MEDS: SODIUM CHLORIDE 0.9% IV 1,000 ML 999 ML IV CONT (16:49)
[2022-10-25] MEDS: MORPHINE SULFATE (*CRX) 4 MG/ML INJ IV PUSH (16:49)
[2022-10-25 17:14] LABS: Basophils Absolute Auto 0.1 K/mm3 (0.0-0.1); Eosinophils Absolute Auto 0.2 K/mm3 (0-0.3); Eosinophils Percent Auto 2.9 % (0-4.4); Hematocrit 38.5 % (42.0-52.0); Hemoglobin 13.1 g/dL (14.0-18.0); Immature Granulocyte Absolute 0.02 K/mm3 (0.00-0.031); Immature Granulocyte Percent A 0.2 % (0-0.5); Lymphocytes Absolute Auto 1.18 K/mm3 (0.9-3.2); Mean Platelet Volume 9.5 fl (7.4-10.4); Monocytes Absolute Auto 0.7 K/mm3 (0.1-0.6); Monocytes Percent Auto 8.4 % (2.6-8.5); Neutrophils Absolute Auto 6.2 K/mm3 (1.3-6.7); Neutrophils Percent Auto 73.5 % (45.5-73.1); Platelet Count Result 246 k/mm3 (150-375); Red Blood Count 3.85 M/mm3 (4.6-6.20); Red Cell Distribution Width 13.2 % (11.5-14.5); White Blood Count 8.4 K/mm3 (4.5-10.0)
[2022-10-25 17:24] LABS: Alanine Aminotransferase 42 U/L (6-50); Albumin Level 3.2 g/dL (3.5-5.1); Alkaline Phosphatase 108 U/L (38-126); Anion Gap 1 mmol/L (8-16); Aspartate Amino Transferase 132 U/L (17-59); Bilirubin,Total 0.9 mg/dL (0.2-1.3); Blood Urea Nitrogen 23 mg/dL (9-20); Calcium 8.1 mg/dL (8.4-10.2); Carbon Dioxide 33 mmol/L (22-30); Chloride 100 mmol/L (98-107); Estimated CRCL calculation 55 ml/min; Estimated Glomerular Filt Rate > 60; Glucose 100 mg/dL (65-110); Sodium 134 mmol/L (137-145)
[2022-10-25 17:25] LABS: Prothrombin Time 13.9 Seconds (11.1-14.7)
[2022-10-25 17:32] LABS: Appearance Urine Clear (Clear); Bacteria Urine None Seen /hpf; Bilirubin Urine Negative (Negative); Blood Urine Negative (Negative); Color Urine Dark Yellow (Yellow); Glucose Urine UA Negative (Negative); Ketones Urine 1+ mg/dL (Negative); Leukocyte Esterase Ur Negative LEU/UL (Negative); Nitrate Urine Negative (Negative); Non Pathogenic Casts 0-2; Protein Urine Trace mg/dL (Negative); RBC Urine 0-2 /hpf (0-2); Specific Grav Ur 1.028 (1.001-1.035); Squamous Epithelial Cell Urine None seen /hpf (Few); WBC Urine 0-5 /hpf
[2022-10-25 17:44] LABS: Add Urine Microscopic? YES
[2022-10-25] MEDS: cloNIDine HCL 0.1 MG TABLET PO (18:05)
[2022-10-25] MEDS: levETIRAcetam 1000MG/NACL100ML 1,000 MG/100 ML BAG 400 MG IVPB (18:58)
[2022-10-25] MEDS: hydrALAZINE HCL 20 MG/ML VIAL 10 MG IV PUSH (19:08)
--- NOTE | 2022-10-25 19:47 | PC.NURSE ---
Spoke with Paris from [facility] transfer center for triage information. Will call back with bed placement.
--- NOTE | 2022-10-25 23:45 | PC.NURSE ---
Pt accepted under Dr. Day to Rm [id number] at [facility]. Nurse to nurse report called, spoke with Enriqueta KHOURY. Pt awaiting transport via EMS.
[2022-10-26 00:39] VITALS: BP 168/63; PULSE 63; RESP 12; O2SAT 98
== END 2022-10-26 00:51 | disposition short-term general hospital (02) ==
PROVIDERS: Emergency Provider Physician Assistant; PCP Family Medicine
DX: S06.5X0A Traumatic subdural hemorrhage without loss of consciousness, initial encounter (principal); R41.82 Altered mental status, unspecified; W10.9XXA Fall (on) (from) unspecified stairs and steps, initial encounter; I69.354 Hemiplegia and hemiparesis following cerebral infarction affecting left non-dominant side; I25.10 Atherosclerotic heart disease of native coronary artery without angina pectoris; G20 Parkinson's disease; F02.80 Dementia in other diseases classified elsewhere, unspecified severity, without behavioral disturbance, psychotic disturbance, mood disturbance, and anxiety; I25.2 Old myocardial infarction; E78.5 Hyperlipidemia, unspecified; Z79.82 Long term (current) use of aspirin; Z79.01 Long term (current) use of anticoagulants
CPT/HCPCS: 36415; 70450; 71045; 72125; 80053; 81001; 85025; 85610; 96361; 96365; 96375; 99285; A9270; J0360; J1953; J2270; J7030

== ENCOUNTER 2022-11-06 15:46 | Inpatient (IN) | payer MEDICARE, SELFPAY ==
--- NOTE | ~2022-11-06 | CT_ITS ---
EXAMINATION: CT brain wo con INDICATION: Mental status change COMPARISON: 10/25/2022 TECHNIQUE: Standard unenhanced head CT. The dose-length product (DLP) was 681.00 mGy-cm. The mA was a djusted according to patient size. Iterative reconstruction technique was employed. FINDINGS: No acute intraparenchymal hemorrhage. Areas of dependent layering hemorrhage in the lateral ventricles have slightly decreased. In addition, a 12 mm x 6 mm hyperdense lesion in the right later al ventricle near the foramen of Monterroso is also decreased, consistent with resolving hemorrhage. Ther e is an unchanged 7 mm low-density extra-axial fluid collection adjacent to the left frontal lobe, co nsistent with subacute subdural hematoma. No evidence of mass lesion. No evidence of acute infarction . There is an old infarct of the maurice. There is moderate periventricular and subcortical hypodensity probably related to small vessel ischemic disease. There is moderate prominence of the sulci and vent ricles related to cerebral atrophy. Intracranial calcified cerebral atherosclerosis is noted. No mas s effect or midline shift. Changes in the globes are likely from ocular lens surgery. The visualized sinuses and mastoid air cells are well aerated. Bilateral nasal bone fractures are again noted. IMPRESSION: 1. Interval decrease in intraventricular hemorrhage and hyperdense area near the foramen of Monterroso, c onsistent with resolving hemorrhage. 2. Subacute left subdural hematoma. 3. Areas of prior infarction. 4. Constellation CT findings which could reflect normal pressure hydrocephalus versus age-related fin dings. Reviewed, dictated and finalized at location F. IMPRESSION: 1. Interval decrease in intraventricular hemorrhage and hyperdense area near th e foramen of Monterroso, consistent with resolving hemorrhage. 2. Subacute left subdural hematoma. 3. Areas of prior infarction. 4. Constellation CT findings which could reflect normal pressure hydrocephalus versus age-related findings.
--- NOTE | ~2022-11-06 | XR_ITS ---
Portable chest x-ray Comparison: 10/25/2022 Clinical History: Fever Findings: There is mild hazy right upper lobe airspace disease. Left lung is clear. No pleural effus ion. Cardiomediastinal silhouette is stable. Left shoulder arthroplasty in place. Impression: Suspected hazy right upper lobe pneumonia. Reviewed, dictated and finalized at location . Impression: Suspected hazy right upper lobe pneumonia.
--- NOTE | 2022-11-06 15:45 | ADMGEN ---
This patient, Merritt Marrero, was admitted to 2nd Floor Room 207-2. Patient/family oriented to hospital policies and general routines including ID bracelet, bed and alarms, visiting hours, pain management, procedures, bathroom and other care routines, personal items, smoking policy, room service/diet, and visiting hours. Information on how to activate the Rapid Response Team has been discussed. Patient/Family are encouraged to report perceived risks to care and to ask questions if they do not understand what they are told or what they should do.
[2022-11-06 15:52] VITALS: BMI 17.5
[2022-11-06 16:00] VITALS: BP 157/61; PULSE 69; RESP 16; TEMP 36.6; O2SAT 97
[2022-11-06] MEDS: CARBIDOPA/LEVODOPA 25/100 MG TABLET 1.5 TABLET PO (17:55)
[2022-11-06] MEDS: SENNOSIDES 8.6 MG TABLET PO (17:55)
[2022-11-06] MEDS: ACETAMINOPHEN 325 MG TABLET 650 MG PO (18:04)
[2022-11-06] MEDS: HEPARIN SODIUM 5,000 UNITS/ML VIAL 5000 UNITS SUB-Q (20:32)
[2022-11-06] MEDS: DONEPEZIL HCL 5 MG TABLET 10 MG PO (20:33)
[2022-11-06] MEDS: ATORVASTATIN 40 MG TABLET PO (20:33)
[2022-11-06] MEDS: MELATONIN 5 MG TABLET PO (20:33)
[2022-11-07] VITALS: BP 129/67; PULSE 81; RESP 16; TEMP 36.6; O2SAT 93
--- NOTE | 2022-11-07 07:48 | PC.NURSE ---
Independent Agent [employer] assessed patient's vital signs and neurological status. VS stable and within normal values. Patient either unable or unwilling to answer who or where he is. Patient able to squeeze my hands when asked, but would not open his eyes when asked. Pupils PERRL when nurse opened his eyes. Lungs CTA. BS active x 4 quadrants. Charge nurse also attempted to get a response out of patient. Patient responds to sternal rub, but again no verbal response and would not open his eyes. At this time specification writer is unable to determine if patient is uncooperative or neurologically compromised.
[2022-11-07 07:56] VITALS: BP 144/67; PULSE 86; RESP 16; TEMP 36.6; O2SAT 94
[2022-11-07 09:13] LABS: Basophils Absolute Auto 0.09 K/mm3 (0.00-0.10); Basophils Percent Auto 0.7 % (0.0-1.0); Eosinophils Absolute Auto 0.25 K/mm3 (0.02-0.50); Eosinophils Percent Auto 1.9 % (1.0-6.0); Hematocrit 37.3 % (37.0-46.0); Hemoglobin 12.9 g/dL (12.4-15.3); Immature Granulocyte Absolute 0.08 K/mm3 (0.00-0.00); Immature Granulocyte Percent A 0.6 % (0.0-0.0); Lymphocytes Absolute Auto 0.98 K/mm3 (1.10-4.50); Lymphocytes Percent Auto 7.4 % (18.0-42.0); Mean Corpuscular HGB Conc 34.6 g/dL (32.0-36.0); Mean Corpuscular Hemoglobin 33.9 pg (27.0-31.0); Mean Corpuscular Volume 98.2 fL (78.0-102.0); Mean Platelet Volume 9.2 fl (8.7-11.0); Monocytes Absolute Auto 0.81 K/mm3 (0.10-0.90); Monocytes Percent Auto 6.1 % (2.0-11.0); Neutrophils Percent Auto 83.3 % (50.0-70.0); Platelet Count Result 394 K/mm3 (150-420); Red Cell Distribution Width 13.1 % (11.6-14.4); White Blood Count 13.2 K/mm3 (4.8-10.8)
[2022-11-07 09:22] LABS: Alanine Aminotransferase 45 U/L (16-63); Albumin Level 2.5 g/dL (3.4-5.0); Alkaline Phosphatase 209 U/L (46-116); Anion Gap 7 mmol/L (8-16); Aspartate Amino Transferase 30 U/L (15-37); Bilirubin,Total 0.8 mg/dL (0.00-1.00); Blood Urea Nitrogen 19 mg/dL (7-18); Calcium 8.7 mg/dL (8.5-10.1); Carbon Dioxide 29 mmol/L (21-32); Chloride 100 mmol/L (98-108); Estimated CRCL calculation 47 ml/min; Estimated Glomerular Filt Rate > 60; Glucose 114 mg/dL (70-99); Osmolality Calculated 285 mOsm/kg (285-295); Partial Thromboplastin Time 27.6 SEC (23.90-30.70); Potassium 3.7 mmol/L (3.5-5.1); Prothrombin Time 11.4 Seconds (9.50-12.10); Sodium 136 mmol/L (136-145); Total Protein 6.2 g/dL (6.4-8.2)
--- NOTE | 2022-11-07 09:53 | PC.NURSE ---
Nurse waiting to administer medications due to patient being unable to open eyes and follow direct commands. Cartography Technician unsure if patient can swallow because patient does not swallow when asked to.
--- NOTE | 2022-11-07 10:41 | PM.IMHP ---
H&P: HPI History of Present Illness Date/Time: 11/07/22 10:41 [facility] Past Medical History Medical History Cervical disc disease Coronary artery disease 03/2022 [place] with stenting Diverticulitis Encounter for immunization Hyperlipidemia Left lower lobe pulmonary nodule Parkinson disease Pneumonia Rotator cuff arthropathy of both shoulders Surgical History Surgical History H/O heart artery stent History of neck surgery History of shoulder surgery Family History Family History Father , father ultimately of CHF Malignant neoplasm of prostate Heart disease Sibling Family history of coronary artery disease Mother , mother of Alzheimer's No problems noted. Social History Social History Smoking status: Never smoker Second hand tobacco smoke exposure: No Alcohol intake: current Drinks per week: 4 Substance use: never Substance use type: does not use Lack of Transportation: YES Lack of Food: Never True Current Housing: I Do Not Have Housing Concerned About Future Housing: No Difficulty Paying Gas/Electric Bills: No Difficulty Paying for Meds: No Currently Unemployed: No Education: High School Diploma/GED Difficulty w/ Childcare or Family Care: No Living arrangements: with family Occupation/Education: retired Gender identity (if verbalized by the patient): Male Spiritual care concerns: No Agree to blood products: Yes Meds Home Medications and Allergies Home Medications Medication Instructions Recorded Confirmed Type carbidopa 25 mg-levodopa 100 mg 1.5 tablet PO TID 06/11/20 11/06/22 History tablet aspirin 81 mg tablet,delayed 81 mg PO DAILY 03/24/22 11/06/22 History release mirabegron 50 mg tablet,extended 50 mg PO DAILY 10/08/22 11/06/22 History release 24 hr (Myrbetriq) acetaminophen 500 mg tablet 500 mg PO QID PRN Pain 11/06/22 11/06/22 History amlodipine 5 mg tablet 5 mg PO DAILY 11/06/22 11/06/22 History atorvastatin 40 mg tablet 40 mg PO QHS 11/06/22 11/06/22 History donepezil 10 mg tablet 10 mg PO HS 11/06/22 11/06/22 History heparin, porcine (PF) 5,000 5,000 unit subcut Q12H 11/06/22 11/06/22 History unit/mL injection syringe lidocaine 5 % topical patch 1 patch topical DAILY 11/06/22 11/06/22 History (Lidoderm) metoprolol succinate 25 mg 25 mg PO DAILY 11/06/22 11/06/22 History tablet,extended release 24 hr mineral oil (Fleet Mineral Oil 133 ml RECTAL DAILY PRN 11/06/22 11/06/22 History enema) Constipation omeprazole 40 mg capsule,delayed 40 mg PO QACBREAK 11/06/22 11/06/22 History release polyethylene glycol 3350 17 gram 17 g PO DAILY PRN Constipation 11/06/22 11/06/22 History oral powder packet (Miralax) ramelteon 8 mg tablet 8 mg PO HS 11/06/22 11/06/22 History sennosides 8.6 mg tablet (Senokot) 8.6 mg PO BID 11/06/22 11/06/22 History Allergies Allergy/AdvReac Type Severity Reaction Status Date / Time hydrochlorothiazide Allergy Unknown Unknown Verified 10/25/22 15:41 Vital Signs Vital Signs - 24 hr 11/06/22 16:00 11/07/22 00:00 11/07/22 07:56 Temperature 36.6 C 36.6 C 36.6 C Pulse Rate 69 81 86 Respiratory Rate 16 16 16 Blood Pressure 157/61 H 129/67 144/67 H Pulse Oximetry 97 93 94 Oxygen Delivery Room Air Room Air Room Air H&P: Results Labs Labs: Short CBC 11/07/22 Range/Units 08:57 WBC 13.2 H (4.8-10.8) K/mm3 Hgb 12.9 (12.4-15.3) g/dL Hct 37.3 (37.0-46.0) % Plt Count 394 (150-420) K/mm3 BMP 11/07/22 08:57 Sodium 136 Potassium 3.7 Chloride 100 Carbon Dioxide 29 BUN 19 H Creatinine 0.84 Glucose 114 H Calcium 8.7 Liver Function 11/07/22 Range/Units 08:57 Total Bilirubin 0.8 (0.00-1.00) mg/dL
[2022-11-07] MEDS: MIRABEGRON 25 MG ER TABLET 50 MG PO (11:08)
[2022-11-07] MEDS: SENNOSIDES 8.6 MG TABLET PO ×2 (11:10→17:31)
[2022-11-07] MEDS: PANTOPRAZOLE 40 MG TABLET PO (11:11)
[2022-11-07] MEDS: CARBIDOPA/LEVODOPA 25/100 MG TABLET 1.5 TABLET PO ×3 (11:12→17:30)
[2022-11-07] MEDS: amLODIPine BESYLATE 5 MG TABLET PO (11:12)
[2022-11-07 11:13] VITALS: PULSE 87
[2022-11-07] MEDS: METOPROLOL SUCCINATE EXT REL 25 MG TABCR PO (11:13)
[2022-11-07] MEDS: ASPIRIN 81 MG ENTERIC TABLET PO (11:13)
[2022-11-07] MEDS: LIDOCAINE 5% PATCH 1 PATCH TOPICAL (11:13)
[2022-11-07] MEDS: HEPARIN SODIUM 5,000 UNITS/ML VIAL 5000 UNITS SUB-Q ×2 (11:13→20:13)
--- NOTE | 2022-11-07 12:20 | PM.IMHP ---
H&P: HPI History of Present Illness Date/Time: 11/07/22 12:20 Chief Complaint: Swing bed admission Narrative: This is a 77 year old male patient who was admitted to [facility] Swing Bed program after long inpatient stay at [facility] for intracranial hemorrhage and problems tolerating diet. Patient had been transferred to [facility] from [facility] on 10/19/22 when he fell down 15 stairs and had a C2 fracture. Patient was treated non-operatively and discharged in 4 days to long term for rehab. on 10/25/22 patient returned to [facility] and was found to have intraventricular bleed and subacute subdural. Patient was again transferred to [facility] and treated non-operatively. Patient had been having trouble tolerating diet for a while and being more confused. There was talk of feeding tube placement but it appears patient tolerated oral diet for 24 hours then patient was transferred here on Wednesday late afternoon. This morning nursing staff called and stated that patient would not open his eyes or talk to them. CT scan brain obtained showing improvement in head bleeds from prior imaging as well as chronic infarcts. Labs are stable with normal platelets and normal coags. Once I assessed the patient he responded to painful stimuli where he opened his eyes and began talking. At this time patient denies any pain or concerns but he quickly drifts back to sleep. Patient was able to open his eyes and talk with nursing staff so his medications were given with applesauce. A short while later, patient took 2 bites of food and vomited again. Oral Zofran ordered. Review of Systems Review of Systems: Patient states nothing hurts or bothers him upon assessment ROS unobtainable: Yes unobtainable due to mental status PMFSH Past Medical History Medical History Cervical disc disease Coronary artery disease 03/2022 [place] with stenting Diverticulitis Encounter for immunization Hyperlipidemia Left lower lobe pulmonary nodule Parkinson disease Pneumonia Rotator cuff arthropathy of both shoulders Surgical History Surgical History H/O heart artery stent History of neck surgery History of shoulder surgery Family History Family History Father , father ultimately of CHF Malignant neoplasm of prostate Heart disease Sibling Family history of coronary artery disease Mother , mother of Alzheimer's No problems noted. Social History Social History Smoking status: Never smoker Second hand tobacco smoke exposure: No Alcohol intake: current Drinks per week: 4 Substance use: never Substance use type: does not use Lack of Transportation: YES Lack of Food: Never True Current Housing: I Do Not Have Housing Concerned About Future Housing: No Difficulty Paying Gas/Electric Bills: No Difficulty Paying for Meds: No Currently Unemployed: No Education: High School Diploma/GED Difficulty w/ Childcare or Family Care: No Living arrangements: with family Occupation/Education: retired Gender identity (if verbalized by the patient): Male Spiritual care concerns: No Agree to blood products: Yes Meds Home Medications and Allergies Home Medications Medication Instructions Recorded Confirmed Type carbidopa 25 mg-levodopa 100 mg 1.5 tablet PO TID 06/11/20 11/06/22 History tablet aspirin 81 mg tablet,delayed 81 mg PO DAILY 03/24/22 11/06/22 History release mirabegron 50 mg tablet,extended 50 mg PO DAILY 10/08/22 11/06/22 History release 24 hr (Myrbetriq) acetaminophen 500 mg tablet 500 mg PO QID PRN Pain 11/06/22 11/06/22 History amlodipine 5 mg tablet 5 mg PO DAILY 11/06/22 11/06/22 History atorvastatin 40 mg tablet 40 mg PO QHS 11/06/2211/06
[2022-11-07] MEDS: ONDANSETRON HCL ODT 4 MG TABLET PO ×2 (12:28→20:23)
--- NOTE | 2022-11-07 12:52 | PC.NURSE ---
Line Haul Owner Operator assisted patient to a chair, using the deya lift for lunch. Patient able to tolerate sitting in recliner with feet elevated. Line Haul Owner Operator attempted to assist patient with eating, and after the second bite of macaroni and cheese, patient vomited. PRN Zofran ordered and administered. Patient has had no more vomiting, but has not shown any interest in eating either. Patient remains largely non-verbal and unable to cooperate with simple commands.
[2022-11-07] MEDS: ACETAMINOPHEN 325 MG TABLET 650 MG PO ×2 (14:01→20:12)
[2022-11-07 16:00] VITALS: BP 128/68; PULSE 62; RESP 16; TEMP 36.5; O2SAT 94
--- NOTE | 2022-11-07 17:35 | PC.NURSE ---
Patient's here and patient in chair eating. Eating is going better with patient eating soft food and prompting.
[2022-11-07] MEDS: MELATONIN 5 MG TABLET PO (20:13)
[2022-11-07] MEDS: ATORVASTATIN 40 MG TABLET PO (20:13)
[2022-11-07] MEDS: DONEPEZIL HCL 5 MG TABLET 10 MG PO (20:13)
[2022-11-08] VITALS: BP 151/63; PULSE 68; RESP 16; TEMP 36.4; O2SAT 96
[2022-11-08 08:00] VITALS: BP 152/75; PULSE 78; RESP 16; TEMP 36.3; O2SAT 95
[2022-11-08] MEDS: ASPIRIN 81 MG ENTERIC TABLET PO (08:37)
[2022-11-08] MEDS: CARBIDOPA/LEVODOPA 25/100 MG TABLET 1.5 TABLET PO ×3 (08:37→16:57)
[2022-11-08] MEDS: MIRABEGRON 25 MG ER TABLET 50 MG PO (08:38)
[2022-11-08 08:39] VITALS: PULSE 85
[2022-11-08] MEDS: SENNOSIDES 8.6 MG TABLET PO ×2 (08:39→16:57)
[2022-11-08] MEDS: amLODIPine BESYLATE 5 MG TABLET PO (08:39)
[2022-11-08] MEDS: METOPROLOL SUCCINATE EXT REL 25 MG TABCR PO (08:39)
[2022-11-08] MEDS: LIDOCAINE 5% PATCH 1 PATCH TOPICAL (08:40)
[2022-11-08] MEDS: PANTOPRAZOLE 40 MG TABLET PO (08:40)
[2022-11-08] MEDS: HEPARIN SODIUM 5,000 UNITS/ML VIAL 5000 UNITS SUB-Q ×2 (08:40→20:22)
--- NOTE | 2022-11-08 08:52 | PC.NURSE ---
Patient up in chair, more alert and feeding himself this morning.
[2022-11-08 16:00] VITALS: BP 147/62; PULSE 68; RESP 16; TEMP 36.4; O2SAT 96
[2022-11-08] MEDS: ACETAMINOPHEN 325 MG TABLET 650 MG PO (16:57)
[2022-11-08 20:00] VITALS: PULSE 68; RESP 16; O2SAT 96
[2022-11-08] MEDS: ONDANSETRON HCL ODT 4 MG TABLET PO (20:21)
[2022-11-08] MEDS: DONEPEZIL HCL 5 MG TABLET 10 MG PO (20:21)
[2022-11-08] MEDS: MELATONIN 5 MG TABLET PO (20:22)
[2022-11-08] MEDS: ATORVASTATIN 40 MG TABLET PO (20:22)
[2022-11-09] VITALS: BP 142/58; PULSE 71; RESP 16; TEMP 36.5; O2SAT 97
--- NOTE | 2022-11-09 04:54 | PC.NURSE ---
On 11/09/22, the FASHION INTERN, Monse Xiao, provided care and completed [facility] documentation on this patient. I have reviewed the FASHION INTERN's documentation and agree with the findings.
[2022-11-09 08:00] VITALS: BP 141/58; PULSE 95; RESP 12; TEMP 37.7; O2SAT 88
[2022-11-09] MEDS: LIDOCAINE 5% PATCH 1 PATCH TOPICAL (09:10)
[2022-11-09] MEDS: HEPARIN SODIUM 5,000 UNITS/ML VIAL 5000 UNITS SUB-Q ×2 (09:10→20:53)
[2022-11-09] MEDS: MIRABEGRON 25 MG ER TABLET 50 MG PO (09:10)
[2022-11-09] MEDS: SENNOSIDES 8.6 MG TABLET PO ×2 (09:10→16:43)
[2022-11-09 09:11] VITALS: PULSE 95
[2022-11-09] MEDS: METOPROLOL SUCCINATE EXT REL 25 MG TABCR PO (09:11)
[2022-11-09] MEDS: PANTOPRAZOLE 40 MG TABLET PO (09:11)
[2022-11-09] MEDS: amLODIPine BESYLATE 5 MG TABLET PO (09:11)
[2022-11-09] MEDS: CARBIDOPA/LEVODOPA 25/100 MG TABLET 1.5 TABLET PO ×3 (09:12→16:43)
[2022-11-09] MEDS: ASPIRIN 81 MG ENTERIC TABLET PO (09:12)
[2022-11-09] MEDS: ACETAMINOPHEN 325 MG TABLET 650 MG PO ×2 (13:08→21:21)
[2022-11-09 16:00] VITALS: BP 150/72; PULSE 93; RESP 16; TEMP 36.9
--- NOTE | 2022-11-09 17:07 | PC.NURSE ---
Patient up in chair. Patient looking at magazines, sitting near him. Does no offer any complaints. Call light and belongings within reach.
[2022-11-09] MEDS: ONDANSETRON HCL ODT 4 MG TABLET PO (20:55)
--- NOTE | 2022-11-09 20:58 | PC.NURSE ---
Patient has some emesis last night after night time medications. As a result, patient took Zofran 30 minutes prior to the rest of his night time meds tonight.
[2022-11-09] MEDS: ATORVASTATIN 40 MG TABLET PO (21:22)
[2022-11-09] MEDS: DONEPEZIL HCL 5 MG TABLET 10 MG PO (21:22)
[2022-11-09] MEDS: MELATONIN 5 MG TABLET PO (21:22)
[2022-11-10] VITALS: BP 166/69; PULSE 79; RESP 16; TEMP 36.7; O2SAT 93
[2022-11-10 08:00] VITALS: BP 165/65; PULSE 78; RESP 16; TEMP 36.6; O2SAT 94
[2022-11-10] MEDS: ACETAMINOPHEN 325 MG TABLET 650 MG PO (08:07)
[2022-11-10] MEDS: ASPIRIN 81 MG ENTERIC TABLET PO (08:31)
[2022-11-10] MEDS: amLODIPine BESYLATE 5 MG TABLET PO (08:31)
[2022-11-10] MEDS: CARBIDOPA/LEVODOPA 25/100 MG TABLET 1.5 TABLET PO ×3 (08:31→17:18)
[2022-11-10 08:32] VITALS: PULSE 87
[2022-11-10] MEDS: MIRABEGRON 25 MG ER TABLET 50 MG PO (08:32)
[2022-11-10] MEDS: PANTOPRAZOLE 40 MG TABLET PO (08:32)
[2022-11-10] MEDS: SENNOSIDES 8.6 MG TABLET PO ×2 (08:32→17:18)
[2022-11-10] MEDS: METOPROLOL SUCCINATE EXT REL 25 MG TABCR PO (08:32)
[2022-11-10] MEDS: LIDOCAINE 5% PATCH 1 PATCH TOPICAL (08:33)
[2022-11-10] MEDS: HEPARIN SODIUM 5,000 UNITS/ML VIAL 5000 UNITS SUB-Q ×2 (08:36→20:51)
--- NOTE | 2022-11-10 12:33 | PC.NURSE ---
Patient requesting bread for egg salad for lunch. Discussed with patient and that bread is not under patient diet level. State understanding, continuing to request bread. DIGITAL PROJECT COORDINATOR Jose notified. Okayed for patient to have bread.
[2022-11-10 16:45] VITALS: BP 148/80; PULSE 72; RESP 18; TEMP 36.2; O2SAT 95
[2022-11-10] MEDS: ATORVASTATIN 40 MG TABLET PO (20:51)
[2022-11-10] MEDS: MELATONIN 5 MG TABLET PO (20:51)
[2022-11-10] MEDS: DONEPEZIL HCL 5 MG TABLET 10 MG PO (20:51)
[2022-11-10 23:13] VITALS: BP 147/67; PULSE 76; RESP 19; TEMP 36.2; O2SAT 95
[2022-11-11 08:00] VITALS: BP 158/71; PULSE 78; RESP 14; TEMP 36.3; O2SAT 95
[2022-11-11] MEDS: HYDROcodone/acetaminophen (*CRX) 5-325 MG TABLET 1 TAB PO (08:14)
[2022-11-11] MEDS: LIDOCAINE 5% PATCH 1 PATCH TOPICAL (08:42)
[2022-11-11] MEDS: HEPARIN SODIUM 5,000 UNITS/ML VIAL 5000 UNITS SUB-Q ×2 (08:42→20:56)
[2022-11-11] MEDS: MIRABEGRON 25 MG ER TABLET 50 MG PO (08:43)
[2022-11-11] MEDS: CARBIDOPA/LEVODOPA 25/100 MG TABLET 1.5 TABLET PO ×3 (08:43→16:25)
[2022-11-11] MEDS: SENNOSIDES 8.6 MG TABLET PO ×2 (08:43→16:26)
[2022-11-11 08:44] VITALS: PULSE 78
[2022-11-11] MEDS: PANTOPRAZOLE 40 MG TABLET PO (08:44)
[2022-11-11] MEDS: METOPROLOL SUCCINATE EXT REL 25 MG TABCR PO (08:44)
[2022-11-11] MEDS: ASPIRIN 81 MG ENTERIC TABLET PO (08:44)
[2022-11-11] MEDS: amLODIPine BESYLATE 5 MG TABLET PO (08:45)
[2022-11-11 15:50] VITALS: BP 158/68; PULSE 68; RESP 16; TEMP 36.8; O2SAT 96
--- NOTE | 2022-11-11 16:15 | PC.NURSE ---
pt c/o nausea after standing and walking to chair from bed with x2 assist and walker/belt, requests zoftan and tylenol
[2022-11-11] MEDS: ONDANSETRON HCL ODT 4 MG TABLET PO (16:22)
[2022-11-11] MEDS: ACETAMINOPHEN 325 MG TABLET 650 MG PO (16:22)
--- NOTE | 2022-11-11 18:05 | PC.NURSE ---
was reminded that claudio from speech will be here at lunch tomorrow to work with pt and she will be able to better explain his diet recommendations
[2022-11-11] MEDS: DONEPEZIL HCL 5 MG TABLET 10 MG PO (20:55)
[2022-11-11] MEDS: traMADol HCL (*CRX) 25 MG TABLET PO (20:55)
[2022-11-11] MEDS: MELATONIN 5 MG TABLET PO (20:56)
[2022-11-11] MEDS: ATORVASTATIN 40 MG TABLET PO (20:56)
[2022-11-12] VITALS: BP 155/70; PULSE 70; RESP 18; TEMP 36.6; O2SAT 95
--- NOTE | 2022-11-12 05:00 | PC.NURSE ---
Pt assisted in turning and cleaned of urine and new bedding/linens and gown applied. Pt is alert and oriented but has extreme difficulty in assisting to turn and move, noted pts limbs very stiff. When asked if having pain pt reports no pain, c-collar in place, pt repositioned for comfort. Call [place] at pt side. He refuses to drink anything tonight when offered.
[2022-11-12 08:00] VITALS: BP 141/71; PULSE 75; RESP 18; TEMP 36.8; O2SAT 93
[2022-11-12] MEDS: MIRABEGRON 25 MG ER TABLET 50 MG PO (08:33)
[2022-11-12] MEDS: amLODIPine BESYLATE 5 MG TABLET PO (08:33)
[2022-11-12] MEDS: ACETAMINOPHEN 325 MG TABLET 650 MG PO (08:34)
[2022-11-12] MEDS: ASPIRIN 81 MG ENTERIC TABLET PO (08:34)
[2022-11-12 08:35] VITALS: PULSE 78
[2022-11-12] MEDS: METOPROLOL SUCCINATE EXT REL 25 MG TABCR PO (08:35)
[2022-11-12] MEDS: SENNOSIDES 8.6 MG TABLET PO ×2 (08:35→17:28)
[2022-11-12] MEDS: CARBIDOPA/LEVODOPA 25/100 MG TABLET 1.5 TABLET PO ×3 (08:36→17:28)
[2022-11-12] MEDS: HEPARIN SODIUM 5,000 UNITS/ML VIAL 5000 UNITS SUB-Q ×2 (08:36→20:38)
[2022-11-12] MEDS: PANTOPRAZOLE 40 MG TABLET PO (08:36)
[2022-11-12] MEDS: LIDOCAINE 5% PATCH 1 PATCH TOPICAL (08:39)
--- NOTE | 2022-11-12 13:22 | PC.NURSE ---
Patient had single emesis after lunch. Nurses had transferred patient from chair to bed, and changed patient's depend. Patient began to vomit and nurse turned patient to his side. Patient's had just changed the pads on the [place] J collar and changed them again after patient vomited. The first time patient's changed the pads on the collar today, patient was sitting up in the chair, and patient's attempted to shave patient's snow. Unemployment Claims Adjudicator cautioned on need to keep head stable while collar is off, and that patient should be lying flat with head supported for any changes.
[2022-11-12 16:00] VITALS: BP 133/57; PULSE 71; RESP 16; TEMP 36.4; O2SAT 94
--- NOTE | 2022-11-12 17:35 | PC.NURSE ---
Gas Turbine Powerplant Mechanic cleaned patient up and got patient out of bed for dinner. Gas Turbine Powerplant Mechanic attempted to help patient to eat, and patient told teletypewriter installer that he is not going to open his mouth. Gas Turbine Powerplant Mechanic administered patient's medication and tried again to help patient with dinner and patient still refusing to open his mouth. Patient is currently holding his spoon tapping on the plate. Gas Turbine Powerplant Mechanic will continue to offer assistance.
[2022-11-12] MEDS: ONDANSETRON HCL ODT 4 MG TABLET PO (19:57)
[2022-11-12 20:00] VITALS: PULSE 71; RESP 16; O2SAT 94
[2022-11-12] MEDS: HYDROcodone/acetaminophen (*CRX) 5-325 MG TABLET 1 TAB PO (20:38)
[2022-11-12] MEDS: DONEPEZIL HCL 5 MG TABLET 10 MG PO (20:39)
[2022-11-12] MEDS: ATORVASTATIN 40 MG TABLET PO (20:39)
[2022-11-12] MEDS: MELATONIN 5 MG TABLET PO (20:39)
[2022-11-13] VITALS: BP 132/63; PULSE 71; RESP 16; TEMP 36.6; O2SAT 94
[2022-11-13 07:27] VITALS: PULSE 121; RESP 18; O2SAT 87
--- NOTE | 2022-11-13 07:50 | PC.NURSE ---
notified that patient has a fever, rash noted, labs and cxr ordered, reports to call for any other changes
[2022-11-13 08:00] VITALS: BP 146/63; PULSE 121; RESP 18; TEMP 38.2; O2SAT 87
--- NOTE | 2022-11-13 08:03 | PC.NURSE ---
During am assessment, pattern chart writer found that patient was febrile and has a rash. Patient's HR elevated with T of 100.8 axillary and pulse of 121. SPO2 was at 87 percent on room air. Mis Specialist notified FOUNDRY SUPERINTENDANT and FOUNDRY SUPERINTENDANT assessed patient. Patient placed on contact precautions and new treatment orders were given. Charge nurse notified of patient change in condition.
[2022-11-13 08:15] LABS: Hematocrit 43.2 % (37.0-46.0); Hemoglobin 14.7 g/dL (12.4-15.3); Immature Platelet Fraction Pct 1.3 % (1.0-7.0); Mean Corpuscular Hemoglobin 33.4 pg (27.0-31.0); Mean Corpuscular Volume 98.2 fL (78.0-102.0); Mean Platelet Volume 9.3 fl (8.7-11.0); Platelet Count Result 544 K/mm3 (150-420)
[2022-11-13 08:20] LABS: White Blood Count 20.2 K/mm3 (4.8-10.8)
[2022-11-13 08:29] LABS: Alanine Aminotransferase 27 U/L (16-63); Albumin Level 2.7 g/dL (3.4-5.0); Alkaline Phosphatase 181 U/L (46-116); Anion Gap 9 mmol/L (8-16); Aspartate Amino Transferase 20 U/L (15-37); Bilirubin,Total 0.9 mg/dL (0.00-1.00); Blood Urea Nitrogen 17 mg/dL (7-18); CRP 3.8 mg/dL (0.0-0.9); Calcium 9.3 mg/dL (8.5-10.1); Carbon Dioxide 27 mmol/L (21-32); Chloride 98 mmol/L (98-108); Estimated CRCL calculation 42 ml/min; Estimated Glomerular Filt Rate > 60; Glucose 123 mg/dL (70-99); Magnesium 1.9 mg/dL (1.8-2.4); Osmolality Calculated 280 mOsm/kg (285-295); Sodium 134 mmol/L (136-145); Total Protein 6.9 g/dL (6.4-8.2)
[2022-11-13 08:30] LABS: Neutrophils Percent Manual 88 % (46-73); Total Cells Counted 100
[2022-11-13 08:31] LABS: Band Neutrophils Percent 5 % (0-6); Eosinophils Percent Manual 0 % (1-6); Lymphocytes Absolute Manual 1.01 K/mm3 (1.1-4.5); Lymphocytes Percent Manual 5 % (18-44); Monocytes Percent Manual 1 % (3-9); Neutrophils Absolute Manual 18.78 K/mm3 (1.3-6.7)
[2022-11-13 08:32] LABS: Basophils Percent Manual 0 % (0-1); Platelet Estimate Adequate (Adequate)
--- NOTE | 2022-11-13 08:46 | PM.IMPN ---
Progress Note: A&P Assessment and Plan (1) Debility: Code(s): R53.81 - Other malaise Status: Acute Assessment and Plan: Patient admitted to Swing Bed program for acute rehab related to deconditioning due to prolonged/repeated hospitalization since initial injury on 10/18/2022 (2) Intracranial bleed: Code(s): I62.9 - Nontraumatic intracranial hemorrhage, unspecified Status: Acute Assessment and Plan: Intraventricular bleed and subacute subdural reason for readmission to [facility] on 10/25/22. Decreased mental status noted since then with problems tolerating diet (3) Altered mental status: Code(s): R41.82 - Altered mental status, unspecified Status: Acute Assessment and Plan: 11/07: Today patient responded to painful stimuli to finally open eyes and speak with RN and Provider. Repeat CT shows interval improvement in head bleed. (4) Dens fracture with routine healing: Code(s): S12.100D - Unspecified displaced fracture of second cervical vertebra, subsequent encounter for fracture with routine healing Status: Acute Assessment and Plan: [place] J collar in place, no tenderness to palpation. (5) Dysphagia: Code(s): R13.10 - Dysphagia, unspecified Status: Acute Assessment and Plan: Patient needs pills crushed in applesauce, Level 5 diet. Patient vomited after a few bites of lunch today. (6) Parkinson disease: Code(s): G20 - Parkinson's disease Status: Acute Assessment and Plan: Parkinson vs Normal Pressure Hydrocephalus, patient was supposed to have lumbar drain trial but this has been postponed due to head bleed. (7) Ribs, multiple fractures: Code(s): S22.49XA - Multiple fractures of ribs, unspecified side, initial encounter for closed fracture Status: Acute Assessment and Plan: Right 4th and 5th rib fractures per prior reports noted on 10/19 [facility] hospitalization. (8) Shingles: Code(s): B02.9 - Zoster without complications Status: Acute Assessment and Plan: New raised, erythematous lesion tracking a dermatome to left lateral, posterior arm to mid back without crossing the midline. Also present to left groin and leg. suspect shingles. Does not appear painful at this time however patient is difficult to answer questions. Started IV acyclovir and anticipate a 7 day course. He is too lethargic to take PO at this time. Contact isolation. (9) Aspiration pneumonia: Code(s): J69.0 - Pneumonitis due to inhalation of food and vomit Status: Acute Assessment and Plan: Episode of emesis yesterday after eating. 11/13-tachycardia in the 120's, febrile 102, and hypoxic 87% on room air Stat labs--WBC elevated at 20.6, Procal normal, CRP 3.8, Neutrophils 88% with 5% bands, lactic normal Started on broad spectrum antibiotics vanco, cefe, and levaquin. Dale culture with blood cultures, U/A, and chest xr. XR concerning for RUL PNA which would be consistent with ASA PNA vs pneumonitis. Holding PO medications for now given how lethargic he is. PRN hydralazine and PRN labetalol for HTN or tachycardia prn Plan Change to inpatient admission Subjective Date/time seen: 11/13/22 08:46 Interval history: 11/13-Provider notified that patient is febrile 102, tachycardic, and hypoxic 87% on room air. According to his nurse, he had an episode of emesis yesterday. Suspect this could be aspiration pneumonia. Upon assessment he is difficult to arouse but this is not necessarily a change for him. He usually is more alert in the afternoons. He responds to painful stimuli with grimacing. His lung sounds are mostly clear but diminished throughout. Will dale culture, obtain chest x-ray, and initiate antibiotics. He also has new red raised lesions traveling up the back of his arm to his mid back suspicious for shingles. They do not appear to be painful but again, he is not a great historian and
[2022-11-13 08:50] LABS: Lactic Acid Reflex 1.3 mmol/L (0.4-2.0)
--- NOTE | 2022-11-13 09:24 | PM.DS ---
DS: Admitting Diagnosis Discharge Date 11/13 Admitting Diagnosis swing bed for therapy after intracranial hemorrhage DS: Discharge Diagnosis Discharge Diagnosis (1) Debility: Code(s): R53.81 - Other malaise Status: Acute Assessment and Plan: Patient admitted to Swing Bed program for acute rehab related to deconditioning due to prolonged/repeated hospitalization since initial injury on 10/18/2022 (2) Intracranial bleed: Code(s): I62.9 - Nontraumatic intracranial hemorrhage, unspecified Status: Acute Assessment and Plan: Intraventricular bleed and subacute subdural reason for readmission to [facility] on 10/25/22. Decreased mental status noted since then with problems tolerating diet (3) Altered mental status: Code(s): R41.82 - Altered mental status, unspecified Status: Acute Assessment and Plan: 11/07: Today patient responded to painful stimuli to finally open eyes and speak with RN and Provider. Repeat CT shows interval improvement in head bleed. (4) Dens fracture with routine healing: Code(s): S12.100D - Unspecified displaced fracture of second cervical vertebra, subsequent encounter for fracture with routine healing Status: Acute Assessment and Plan: [place] J collar in place, no tenderness to palpation. (5) Dysphagia: Code(s): R13.10 - Dysphagia, unspecified Status: Acute Assessment and Plan: Patient needs pills crushed in applesauce, Level 5 diet. Patient vomited after a few bites of lunch today. (6) Parkinson disease: Code(s): G20 - Parkinson's disease Status: Acute Assessment and Plan: Parkinson vs Normal Pressure Hydrocephalus, patient was supposed to have lumbar drain trial but this has been postponed due to head bleed. (7) Ribs, multiple fractures: Code(s): S22.49XA - Multiple fractures of ribs, unspecified side, initial encounter for closed fracture Status: Acute Assessment and Plan: Right 4th and 5th rib fractures per prior reports noted on 10/19 [facility] hospitalization. (8) Shingles: Code(s): B02.9 - Zoster without complications Status: Acute Assessment and Plan: New raised, erythematous lesion tracking a dermatome to left lateral, posterior arm to mid back without crossing the midline. Also present to left groin and leg. suspect shingles. Does not appear painful at this time however patient is difficult to answer questions. Started IV acyclovir and anticipate a 7 day course. He is too lethargic to take PO at this time. Contact isolation. (9) Aspiration pneumonia: Code(s): J69.0 - Pneumonitis due to inhalation of food and vomit Status: Acute Assessment and Plan: Episode of emesis yesterday after eating. 11/13-tachycardia in the 120's, febrile 102, and hypoxic 87% on room air Stat labs--WBC elevated at 20.6, Procal normal, CRP 3.8, Neutrophils 88% with 5% bands, lactic normal Started on broad spectrum antibiotics vanco, cefe, and levaquin. Dale culture with blood cultures, U/A, and chest xr. XR concerning for RUL PNA which would be consistent with ASA PNA vs pneumonitis. Holding PO medications for now given how lethargic he is. PRN hydralazine and PRN labetalol for HTN or tachycardia prn Plan Interval history: 11/13-Provider notified that patient is febrile 102, tachycardic, and hypoxic 87% on room air. According to his nurse, he had an episode of emesis yesterday. Suspect this could be aspiration pneumonia. Upon assessment he is difficult to arouse but this is not necessarily a change for him. He usually is more alert in the afternoons. He responds to painful stimuli with grimacing. His lung sounds are mostly clear but diminished throughout. Will dale culture, obtain chest x-ray, and initiate antibiotics. He also has new red raised lesions traveling up the back of his arm to his mid back suspicious for shingles. They do not appear to be painfu
[2022-11-13] MEDS: HEPARIN SODIUM 5,000 UNITS/ML VIAL 5000 UNITS SUB-Q (09:30)
[2022-11-13] MEDS: LIDOCAINE 5% PATCH 1 PATCH TOPICAL (09:31)
[2022-11-13 09:42] VITALS: TEMP 38.2
[2022-11-13] MEDS: ACETAMINOPHEN 650 MG SUPPOSITORY (09:42)
--- NOTE | 2022-11-13 10:16 | PC.NURSE ---
Patient changed from swing status to inpatient status at 1015.
== END 2022-11-13 10:15 | disposition critical access hospital (66) | DRG 947 ==
PROVIDERS: Nurse Practitioner; Nurse Practitioner Acute Care; Admitting Provider Internal Medicine; PCP Family Medicine; Visit Provider Internal Medicine
DX: R53.81 Other malaise (principal); J69.0 Pneumonitis due to inhalation of food and vomit; I62.9 Nontraumatic intracranial hemorrhage, unspecified; I25.10 Atherosclerotic heart disease of native coronary artery without angina pectoris; B02.9 Zoster without complications; S12.100D Unspecified displaced fracture of second cervical vertebra, subsequent encounter for fracture with routine healing; S22.41XD Multiple fractures of ribs, right side, subsequent encounter for fracture with routine healing; K57.30 Diverticulosis of large intestine without perforation or abscess without bleeding; E78.5 Hyperlipidemia, unspecified; R91.1 Solitary pulmonary nodule; R13.10 Dysphagia, unspecified; G20.A1 Parkinson's disease without dyskinesia, without mention of fluctuations; W10.9XXD Fall (on) (from) unspecified stairs and steps, subsequent encounter; Z95.5 Presence of coronary angioplasty implant and graft; Z79.82 Long term (current) use of aspirin
CPT/HCPCS: 36415; 70450; 71045; 80053; 83605; 83735; 84145; 85025; 85055; 85610; 85730; 86140; 87040; 92526; 92610; 97110; 97161; 97165; 97530; 97535; A9270; J1644

== ENCOUNTER 2022-11-13 10:15 | Inpatient (IN) | payer MEDICARE, SELFPAY ==
[2022-11-13] VITALS (7 sets, daily range): BP systolic 132; BP diastolic 59; PULSE 97–121; RESP 18; TEMP 36.9; O2SAT 91–94; BMI 17.5
--- NOTE | ~2022-11-13 | CT_ITS ---
EXAMINATION: CT brain wo con DATE: 11/15/2022 15:37 INDICATION: decreased level of Conciousness . TECHNIQUE: Computed tomography (CT) of the head was performed without intravenous contrast. The mA wa s adjusted according to patient size. Iterative reconstruction technique was employed. The dose-lengt h product was 681.00 mGy-cm. COMPARISON: 11/07/2022. FINDINGS: No acute intracranial hemorrhage or extra-axial fluid collection. Small volume intraventricular hemor rhage, including the dependent bilateral ventricles and right lateral ventricle near the foramen of M onroe. Subacute/chronic left frontal subdural hemorrhage, decreased in size. No hydrocephalus, mass, or herniation. No acute ischemic infarct. Unremarkable dural venous sinus attenuation. No acute osseous abnormality. Chronic nasal bone fractures. Mucosal thickening and aerated secretions in the left sphenoid sinus. Mucosal thickening in the ethmo id air cells. The remaining aerated spaces are clear. Moderate central predominant atrophy and mild chronic white matter change. 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 Atherosclerotic intracranial calcification. Bilateral lens replacements. IMPRESSION: No acute intracranial process. Aerated secretions in the left sphenoid sinus as can be seen with acute sinusitis in the appropriate clinical context. Continued evolution of the previously described small volume intraventricular and left frontal subdur al hemorrhages. Reviewed, dictated and finalized at location K. IMPRESSION: No acute intracranial process. Aerated secretions in the left sphenoid sinus as can be seen with acute sinusit is in the appropriate clinical context. Continued evolution of the previously described small volume intraventricular a nd left frontal subdural hemorrhages.
--- NOTE | ~2022-11-13 | CT_ITS ---
EXAMINATION: CTA chest PE protocol DATE: 11/13/2022 18:30 INDICATION: Tachycardia. Hypoxia. TECHNIQUE: Computed tomography angiography (CTA) of the chest was performed with 100 mL Omnipaque-350 intravenous contrast timed to evaluate the pulmonary arteries. Coronal maximum intensity projection 3D-reconstructions were created by the technologist. Automated exposure control and iterative reconst ruction technique were employed. The dose-length product was 249.92 mGy-cm. COMPARISON: Chest CT 03/27/2019 FINDINGS: There is mild scarring at the lung apices. There are scattered nodules and airspace opaciti es in right upper lobe. There are tree-in-bud opacities in right lower lobe. There is mucous plugging in left lower lobe with peripheral atelectasis. There is mild atelectasis in left upper lobe. No ple ural effusion. The heart size is normal. There are coronary artery calcifications. No pericardial eff usion. There is no pulmonary embolus. There is moderate thoracic spondylosis. There is a compression fracture of T8 with 1/5 loss of height, likely acute or subacute. There is a chronic compression frac ture of T12. IMPRESSION: 1. No pulmonary embolus. 2. Pneumonia involving right upper lobe and right lower lobe. 3. Left lower lobe mucous plugging. 4. T8 compression fracture, likely acute or subacute. Reviewed, dictated and finalized at location E.
--- NOTE | 2022-11-13 11:32 | PC.NURSE ---
Patient readmitted as inpatient due to change in condition.
--- NOTE | 2022-11-13 11:43 | ECG_ITS ---
Measurements Intervals [place] Rate: 109 P: KS: 0 QRS: 92 QRSD: 115 T: 93 QT: 337 QTc: 455 Interpretive Statements ATRIAL FIBRILLATION WITH RAPID VENTRICULAR RESPONSE BORDERLINE RIGHT AXIS DEVIATION [QRS AXIS > 90] SEPTAL MYOCARDIAL INFARCTION , OF INDETERMINATE AGE [40+ ms Q WAVE IN V1/V2] ABNORMAL ECG COMPARED TO ECG 03/27/2019 10:31:40 ATRIAL FIBRILLATION NOW PRESENT MYOCARDIAL INFARCT FINDING NOW PRESENT Electronically Signed On 11-14-2022 8:35:29 CDT by Miguelangel Levy M.D.
[2022-11-13] MEDS: DEXTROSE 5%/0.9% SOD CHL 1,000 ML 100 ML IV CONT (12:07)
[2022-11-13] MEDS: diphenhydrAMINE HCl INJ 50 MG/ML VIAL 12.5 MG IV PUSH ×2 (12:19→16:44)
[2022-11-13] MEDS: CEFEPIME 2 GM/NS 50 ML 2 GM/50 ML BAG IVPB ×2 (12:21→23:30)
[2022-11-13] MEDS: levoFLOXacin 750 MG/D5W 150 ML 750 MG/150 ML BAG 100 MG IVPB (13:19)
--- NOTE | 2022-11-13 14:23 | PC.NURSE ---
Patient's SPO2 at 98 percent on 4 L n/c. Tool And Die Inspector titrated to 3L. Will continue to monitor.
--- NOTE | 2022-11-13 14:40 | PC.NURSE ---
Patient maintaining SPO2 at 98 percent on 3 L n/c. Rayon Tester titrated to 2.5 L. Patient afebrile at this time. Will continue to monitor.
[2022-11-13] MEDS: VANCOMYCIN 1,250 MG/NS 250 ML 1,250 MG/250 ML BAG 166.67 MG IVPB (16:20)
[2022-11-13] MEDS: ACETAMINOPHEN 650 MG SUPPOSITORY RECTAL (16:45)
[2022-11-13 17:24] LABS: D Dimer 2.39 mg/L (0.19-0.50)
[2022-11-13] MEDS: SODIUM CHLORIDE 0.9% IV 500 ML IV CONT (17:47)
--- NOTE | 2022-11-13 17:50 | PM.IMHP ---
H&P: HPI History of Present Illness Date/Time: 11/13/22 17:50 Chief Complaint: fever, hypoxia Narrative: This is a 77 year old male patient who was admitted to [facility] after long inpatient stay at [facility] for intracranial hemorrhage and problems tolerating diet. Patient had been transferred to [facility] from [facility] on 10/19/22 when he fell down 15 stairs and had a C2 fracture. Patient was treated non-operatively and discharged in 4 days to [facility] for rehab. on 10/25/22 patient returned to [facility] and was found to have intraventricular bleed and subacute subdural. Patient was again transferred to [facility] and treated non-operatively. Patient had been having trouble tolerating diet for a while and being more confused. There was talk of feeding tube placement but it appears patient tolerated oral diet for 24 hours then patient was transferred here on Wednesday late afternoon. This morning nursing staff called and stated that patient would not open his eyes or talk to them. CT scan brain obtained showing improvement in head bleeds from prior imaging as well as chronic infarcts. Labs are stable with normal platelets and normal coags. Once I assessed the patient he responded to painful stimuli where he opened his eyes and began talking. At this time patient denies any pain or concerns but he quickly drifts back to sleep. Patient was able to open his eyes and talk with nursing staff so his medications were given with applesauce. A short while later, patient took 2 bites of food and vomited again. Oral Zofran ordered. 11/13-Provider notified that patient is febrile 102, tachycardic, and hypoxic 87% on room air. According to his nurse, he had an episode of emesis yesterday. Suspect this could be aspiration pneumonia. Upon assessment he is difficult to arouse but this is not necessarily a change for him. He usually is more alert in the afternoons. He responds to painful stimuli with grimacing. His lung sounds are mostly clear but diminished throughout. Will dale culture, obtain chest x-ray, and initiate antibiotics. He also has new red raised lesions traveling up the back of his arm to his mid back suspicious for shingles. They do not appear to be painful but again, he is not a great historian and will not answer my questions. His nurse states that she gave him a bath yesterday and the rash was not present. She also has found it located to his groin and leg. Will admit to inpatient status. Review of Systems Review of Systems: ROS unobtainable: Yes unobtainable due to medical condition and unobtainable due to mental status PMFSH Past Medical History Medical History Cervical disc disease Coronary artery disease 03/2022 [place] with stenting Diverticulitis Encounter for immunization Hyperlipidemia Left lower lobe pulmonary nodule Parkinson disease Pneumonia Rotator cuff arthropathy of both shoulders Surgical History Surgical History H/O heart artery stent History of neck surgery History of shoulder surgery Family History Family History Father , father ultimately of CHF Malignant neoplasm of prostate Heart disease Sibling Family history of coronary artery disease Mother , mother of Alzheimer's No problems noted. Social History Social History Smoking status: Never smoker Second hand tobacco smoke exposure: No Alcohol intake: current Drinks per week: 4 Substance use: never Substance use type: does not use Lack of Transportation: YES Lack of Food: Never True Current Housing: I Do Not Have Housing Concerned About Future Housing: No Difficulty Paying Gas/Electric Bills: No Difficulty Paying for Meds: No Currently Unemployed: No Education:
[2022-11-14] VITALS (11 sets, daily range): BP systolic 157–177; BP diastolic 68–83; PULSE 76–115; RESP 16–19; TEMP 36.8–37.8; O2SAT 92–95
[2022-11-14 05:02] LABS: Basophils Absolute Auto 0.07 K/mm3 (0.00-0.10); Basophils Percent Auto 0.4 % (0.0-1.0); Eosinophils Absolute Auto 0.03 K/mm3 (0.02-0.50); Eosinophils Percent Auto 0.2 % (1.0-6.0); Hematocrit 36.4 % (37.0-46.0); Hemoglobin 12.3 g/dL (12.4-15.3); Immature Granulocyte Absolute 0.13 K/mm3 (0.00-0.00); Immature Granulocyte Percent A 0.7 % (0.0-0.0); Lymphocytes Absolute Auto 0.65 K/mm3 (1.10-4.50); Lymphocytes Percent Auto 3.3 % (18.0-42.0); Mean Corpuscular HGB Conc 33.8 g/dL (32.0-36.0); Mean Corpuscular Hemoglobin 33.3 pg (27.0-31.0); Mean Corpuscular Volume 98.6 fL (78.0-102.0); Mean Platelet Volume 8.9 fl (8.7-11.0); Monocytes Absolute Auto 0.54 K/mm3 (0.10-0.90); Monocytes Percent Auto 2.7 % (2.0-11.0); Neutrophils Absolute Auto 18.3 K/mm3 (1.7-7.2); Neutrophils Percent Auto 92.7 % (50.0-70.0); Platelet Count Result 362 K/mm3 (150-420); Red Blood Count 3.69 M/mm3 (4.70-6.10); Red Cell Distribution Width 13.3 % (11.6-14.4); White Blood Count 19.7 K/mm3 (4.8-10.8)
[2022-11-14 05:17] LABS: Alanine Aminotransferase 31 U/L (16-63); Albumin Level 2.1 g/dL (3.4-5.0); Alkaline Phosphatase 137 U/L (46-116); Anion Gap 6 mmol/L (8-16); Aspartate Amino Transferase 12 U/L (15-37); Bilirubin,Total 0.5 mg/dL (0.00-1.00); Blood Urea Nitrogen 19 mg/dL (7-18); Calcium 8.4 mg/dL (8.5-10.1); Carbon Dioxide 26 mmol/L (21-32); Chloride 103 mmol/L (98-108); Estimated CRCL calculation 38 ml/min; Estimated Glomerular Filt Rate > 60; Glucose 149 mg/dL (70-99); Magnesium 1.8 mg/dL (1.8-2.4); Osmolality Calculated 285 mOsm/kg (285-295); Potassium 3.9 mmol/L (3.5-5.1); Sodium 135 mmol/L (136-145); Total Protein 5.8 g/dL (6.4-8.2)
[2022-11-14] MEDS: DEXTROSE 5%/0.9% SOD CHL 1,000 ML 100 ML IV CONT ×2 (05:27→18:25)
[2022-11-14] MEDS: diphenhydrAMINE HCl INJ 50 MG/ML VIAL 12.5 MG IV PUSH (08:02)
[2022-11-14] MEDS: METOPROLOL TARTRATE INJ 5 MG/5 ML VIAL IV PUSH (08:03)
[2022-11-14] MEDS: ACETAMINOPHEN 650 MG SUPPOSITORY RECTAL (08:04)
--- NOTE | 2022-11-14 09:39 | PM.IMPN ---
Progress Note: A&P Assessment and Plan (1) Aspiration pneumonia: Code(s): J69.0 - Pneumonitis due to inhalation of food and vomit Status: Acute Assessment and Plan: IV Vanc, Cefepime and Levaquin started yesterday Will DC Levaquin today start on Azithromycin oral for 4 doses for Atypical Pneumonia. Probiotic started today Call placed to Infectious disease pharmacist DC Acyclovir as this is not shingles rash is completely gone and patient is in no pain breathing treatment Oxygen Patient can come off of isolation . (2) Shingles: Code(s): B02.9 - Zoster without complications Status: Acute Assessment and Plan: DC Acyclovir as this is not shingles rash is completely gone and patient is in no pain and he has no itching (3) Ribs, multiple fractures: Code(s): S22.49XA - Multiple fractures of ribs, unspecified side, initial encounter for closed fracture Status: Acute Assessment and Plan: Treat pain (4) Altered mental status: Code(s): R41.82 - Altered mental status, unspecified Status: Acute Assessment and Plan: treat infection and any underlying cause. (5) Debility: Code(s): R53.81 - Other malaise Status: Acute Subjective Date/time seen: 11/14/22 09:39 Interval history: Patient reman sick with Pneumonia Aspiration, Rash is completely gone patient denies an pain and is not itching this more than likley was a allergic reaction and Acyclovir was discontinued. Call placed to infectious disease pharmacist and probiotic started on patient at this time. Patient continues to have fever and we will continue to treat and administer breathing treatments as well. Patient is on 2l of oxygen and we will continue to monitor. Discontinue IV Levaquin stared on Oral Azithromycin for atypical coverage obtained a sputum culture. Once the MRSA results come back if negative we will get rid of the Vancomycin if possible. We will continue to monitor patient cultures that are pending. Exam Const: General: cooperative, healthy appearing, comfortable, no acute distress and anxious HENMT: Head: normal to inspection Eyes: General: appearance normal, both eyes and all related structures Alignment and Position: alignment normal Eyelids: eyelids normal Neck: Neck: normal visual inspection, full ROM and no lymphadenopathy Chest: Chest palpation & inspection: normal inspection of the chest and normal palpation of entire chest wall Resp: Effort & Inspection: normal respiratory effort and able to speak in complete sentences GI: Inspection: normal to inspection : General: Yes bladder normal to inspection Urinary Catheter: Urinary Catheter: patent and draining and urine clear Back/Spine/Pelvis: Back: no CVA tenderness Skin: General skin exam: normal color, no rashes or lesions noted and elasticity normal Neuro: General: oriented to person, oriented to place and oriented to time Speech: Other speech findings present (Neuro) (Patient speaks when he wants to and will ignore you at other times. ) Extrem: General: capillary refill normal Right upper extremity: normal to inspection and normal capillary refill Psych: Appearance: grossly normal Attitude: cooperative Insight: Good insight present (Psych) Judgement: Good judgement present (Psych) Objective Data Vital Signs Vital Signs: Vital Signs - 24 hr 11/13/22 11:19 11/13/22 12:00 11/13/22 12:19 Temperature Pulse Rate 121 H 104 H 104 H Respiratory Rate 18 18 Blood Pressure Pulse Oximetry 91 94 Oxygen Delivery Nasal Cannula Nasal Cannula Oxygen Flow Rate 4 4 11/13/22 16:00 11/13/22 16:00 11/13/22 20:00 Temperature 98.5 F Pulse Rate 116 H 113 H 97 Respiratory Rate 18 Blood Pressure 132/59 L Pulse Oximetry 93 Oxygen Delivery Nasal Cannula Oxygen Flow Rate 2.5 11/13/22 20:00 11/13/22 23:43 11/14/22 00:00 Temperature 98.3 F Pulse Rate 113 H 114 H 111 H Res
[2022-11-14] MEDS: AZITHROMYCIN 250 MG TABLET PO (11:58)
[2022-11-14] MEDS: MORPHINE SULFATE (*CRX) 2 MG/ML INJ IV PUSH ×2 (12:56→23:48)
[2022-11-14] MEDS: CEFEPIME 2 GM/NS 50 ML 2 GM/50 ML BAG IVPB ×2 (13:09→23:48)
[2022-11-14] MEDS: VANCOMYCIN 750 MG/NS 250 ML 750 MG/250 ML BAG 250 MG IVPB (14:12)
--- NOTE | 2022-11-14 22:45 | PC.NURSE ---
This RN noticed during the purposeful rounding that the pt had his eyes completely open. This RN asked the pt several questions spaced w/a minute b/w each question. The pt was asked if he felt warm, and the pt stated no. Pt responded to a couple questions w/the reply no appropriately, but could not speak any other words. Pt became teary and this RN grabbed a tissue, and dabbed the pt's eyes dry. Pt still cannot follow commands, but is now responding sparingly.
[2022-11-15] VITALS (9 sets, daily range): BP systolic 146–181; BP diastolic 66–103; PULSE 68–91; RESP 12–20; TEMP 35.8–36.8; O2SAT 95–97
[2022-11-15] MEDS: DEXTROSE 5%/0.9% SOD CHL 1,000 ML 100 ML IV CONT ×2 (04:21→14:45)
[2022-11-15] MEDS: MORPHINE SULFATE (*CRX) 2 MG/ML INJ IV PUSH ×3 (05:24→21:14)
[2022-11-15 05:55] LABS: Basophils Absolute Auto 0.05 K/mm3 (0.00-0.10); Basophils Percent Auto 0.3 % (0.0-1.0); Eosinophils Percent Auto 0.7 % (1.0-6.0); Hematocrit 33.2 % (37.0-46.0); Hemoglobin 11.2 g/dL (12.4-15.3); Immature Granulocyte Percent A 0.7 % (0.0-0.0); Lymphocytes Absolute Auto 0.72 K/mm3 (1.10-4.50); Mean Corpuscular HGB Conc 33.7 g/dL (32.0-36.0); Mean Corpuscular Hemoglobin 33.7 pg (27.0-31.0); Mean Platelet Volume 9.3 fl (8.7-11.0); Monocytes Absolute Auto 0.55 K/mm3 (0.10-0.90); Monocytes Percent Auto 3.8 % (2.0-11.0); Neutrophils Absolute Auto 12.9 K/mm3 (1.7-7.2); Neutrophils Percent Auto 89.5 % (50.0-70.0); Platelet Count Result 307 K/mm3 (150-420); Red Blood Count 3.32 M/mm3 (4.70-6.10); Red Cell Distribution Width 13.4 % (11.6-14.4); White Blood Count 14.5 K/mm3 (4.8-10.8)
[2022-11-15 06:11] LABS: Alanine Aminotransferase 23 U/L (16-63); Albumin Level 1.8 g/dL (3.4-5.0); Alkaline Phosphatase 127 U/L (46-116); Anion Gap 9 mmol/L (8-16); Aspartate Amino Transferase 15 U/L (15-37); Bilirubin,Total 0.4 mg/dL (0.00-1.00); Blood Urea Nitrogen 13 mg/dL (7-18); Calcium 8.1 mg/dL (8.5-10.1); Carbon Dioxide 27 mmol/L (21-32); Chloride 102 mmol/L (98-108); Estimated CRCL calculation 53 ml/min; Estimated Glomerular Filt Rate > 60; Glucose 129 mg/dL (70-99); Magnesium 1.7 mg/dL (1.8-2.4); Osmolality Calculated 288 mOsm/kg (285-295); Potassium 3.2 mmol/L (3.5-5.1); Sodium 138 mmol/L (136-145); Total Protein 5.9 g/dL (6.4-8.2)
[2022-11-15] MEDS: CEFEPIME 2 GM/NS 50 ML 2 GM/50 ML BAG IVPB ×2 (12:01→23:59)
[2022-11-15 13:58] LABS: Vancomycin Trough 5.1 ug/mL (10.0-15.0)
--- NOTE | 2022-11-15 14:49 | PM.IMPN ---
Progress Note: A&P Assessment and Plan (1) Aspiration pneumonia: Code(s): J69.0 - Pneumonitis due to inhalation of food and vomit Status: Acute Assessment and Plan: IV Vanc, Cefepime and Levaquin started yesterday Will DC Levaquin today start on Azithromycin oral for 4 doses for Atypical Pneumonia. Probiotic started today Call placed to Infectious disease pharmacist DC Acyclovir as this is not shingles rash is completely gone and patient is in no pain breathing treatment Oxygen Patient can come off of isolation . (2) Shingles: Code(s): B02.9 - Zoster without complications Status: Acute Assessment and Plan: DC Acyclovir as this is not shingles rash is completely gone and patient is in no pain and he has no itching (3) Ribs, multiple fractures: Code(s): S22.49XA - Multiple fractures of ribs, unspecified side, initial encounter for closed fracture Status: Acute Assessment and Plan: Treat pain (4) Altered mental status: Code(s): R41.82 - Altered mental status, unspecified Status: Acute Assessment and Plan: treat infection and any underlying cause. (5) Debility: Code(s): R53.81 - Other malaise Status: Acute Plan Will obtain a CT of head to see if there is a increased of bleeding or shift Will discuss with if she would like patient transferred Subjective Date/time seen: 11/15/22 14:49 Interval history: Patient is not speaking to anyone at this time and seems to continue to deteroiate. discussed with if she is wanting anything differently. I did explain that his labs are trending at this time in the right direction. Patient has remained a febrile he is not eating or drinking or swallowing at this time. I will obtain a CT of the head to see if there is anything differently going on. Exam Narrative: General: Ill appearing, thin, chronically ill appearing, appears stated age. HEENT: normocephalic, atraumatic. Mucous membranes tacky. EOMI, Pupils are sluggish bilateral sclera anicteric, no conjunctival injection. C Collar in place Respiratory: clear but diminished to auscultation bilaterally. No rales/rhonic/wheezes. Cardiovascular: Regular rate and rhythm, normal S1-S2 upon auscultation. No murmurs, rubs, or clicks. PMI is nondisplaced, capillary re-fill less than 3 second. Abdomen: Soft, flat, no pulsatile masses, non-distended and non-tender. No rebound, no guarding. No CVA tenderness, no hepatosplenomegaly.? Bowel sounds present to all four quadrants. No high pitch or tinkling sounds, resonant to percussion. Extremities: No cyanosis, clubbing, or edema present. Pulses are palpable 2/2.? decreased ranges of motion foot drop noted Neuro: lethargic, does not answer questions. PERRLA. Cranial nerves 2-12 intact without focal deficit. Skin: Warm and dry. Raised erythematous lesions tracking up the posterior lateral left arm to mid back without crossing midline. Lesions apparent to left groin and left leg as well. Lines: PIV Incisions: N/A Psych: lethargic, does not answer questions. Objective Data Vital Signs Vital Signs: Vital Signs - 24 hr 11/14/22 16:00 11/14/22 16:00 11/14/22 19:32 Temperature 98.5 F Pulse Rate 86 86 84 Respiratory Rate 16 Blood Pressure 159/68 H Pulse Oximetry 94 Oxygen Delivery Room Air 11/14/22 20:37 11/14/22 23:02 11/14/22 23:03 Temperature 98.4 F Pulse Rate 99 76 Respiratory Rate 18 Blood Pressure 177/77 H 169/70 H Pulse Oximetry 95 Oxygen Delivery Room Air 11/15/22 03:01 11/15/22 08:00 11/15/22 08:00 Temperature 96.5 F L Pulse Rate 85 78 70 Respiratory Rate 12 Blood Pressure 165/103 H Pulse Oximetry 95 Oxygen Delivery Room Air 11/15/22 12:00 11/15/22 13:08 Temperature 98.2 F Pulse Rate 69 68 Respiratory Rate 14 Blood Pressure 146/73 H Pulse Oximetry 96 Oxygen Delivery Room Air Intake/Output Intake/Output: Intake & Output
--- NOTE | 2022-11-15 15:00 | PC.NURSE ---
Patient taken down via bed to have stat head CT scan. accompanied by this nurse and technical support professional.
[2022-11-15] MEDS: VANCOMYCIN 750 MG/NS 250 ML 750 MG/250 ML BAG 250 MG IVPB (15:06)
--- NOTE | 2022-11-15 15:40 | PC.NURSE ---
Patient back in room from xray. Tolerated transfer fair. HOB elevated. at bedside. Call light at side.
[2022-11-15] MEDS: hydrALAZINE HCL 20 MG/ML VIAL 10 MG IV PUSH (20:16)
[2022-11-16] MEDS: VANCOMYCIN 750 MG/NS 250 ML 750 MG/250 ML BAG 250 MG IVPB ×2 (02:07→14:57)
[2022-11-16 03:19] VITALS: PULSE 73
[2022-11-16] MEDS: DEXTROSE 5%/0.9% SOD CHL 1,000 ML 100 ML IV CONT ×2 (03:41→13:55)
[2022-11-16] MEDS: MORPHINE SULFATE (*CRX) 2 MG/ML INJ IV PUSH ×2 (03:41→08:34)
--- NOTE | 2022-11-16 04:28 | PC.NURSE ---
Pt is answering yes/no questions w/some periods of silence.This RN instructed the pt to open his mouth for RN to inspect pt's tongue and pt demonstrated ability to do so. Pt was asked to show his teeth and pt also completed task. Pt's mouth was moistened w/a moist sponge to help maintain oral mucosa. This RN after several passes through the mouth w/the sponge asked the pt if he his mouth/tongue felt okay to which pt replied, yes. Pt at times is able to communicate through yes and no questions, but is unable to complete complex sentences, and seems visibly frustrated when he cannot get his words out. This RN attempts to comfort the pt by building rapport. This RN has also noticed by communicating things to the pt such as time of day, and when to turn to grab the rail the pt is able to demonstrate understanding to some degree. Bed in lowest position; side railsx3; bed alarm and night light on; call light w/in reach; and pt located near nurses station for pt safety.
[2022-11-16 05:38] LABS: Basophils Absolute Auto 0.05 K/mm3 (0.00-0.10); Basophils Percent Auto 0.5 % (0.0-1.0); Eosinophils Absolute Auto 0.25 K/mm3 (0.02-0.50); Eosinophils Percent Auto 2.6 % (1.0-6.0); Hematocrit 34.2 % (37.0-46.0); Hemoglobin 11.4 g/dL (12.4-15.3); Immature Granulocyte Absolute 0.04 K/mm3 (0.00-0.00); Immature Granulocyte Percent A 0.4 % (0.0-0.0); Lymphocytes Absolute Auto 0.68 K/mm3 (1.10-4.50); Mean Corpuscular HGB Conc 33.3 g/dL (32.0-36.0); Mean Corpuscular Hemoglobin 33.2 pg (27.0-31.0); Mean Corpuscular Volume 99.7 fL (78.0-102.0); Mean Platelet Volume 9.3 fl (8.7-11.0); Monocytes Absolute Auto 0.49 K/mm3 (0.10-0.90); Neutrophils Absolute Auto 8.2 K/mm3 (1.7-7.2); Neutrophils Percent Auto 84.5 % (50.0-70.0); Platelet Count Result 296 K/mm3 (150-420); Red Blood Count 3.43 M/mm3 (4.70-6.10); Red Cell Distribution Width 13.4 % (11.6-14.4); White Blood Count 9.7 K/mm3 (4.8-10.8)
[2022-11-16 05:58] LABS: Alanine Aminotransferase 21 U/L (16-63); Albumin Level 1.7 g/dL (3.4-5.0); Alkaline Phosphatase 122 U/L (46-116); Anion Gap 8 mmol/L (8-16); Aspartate Amino Transferase 15 U/L (15-37); Bilirubin,Total 0.5 mg/dL (0.00-1.00); Blood Urea Nitrogen 10 mg/dL (7-18); Calcium 8.2 mg/dL (8.5-10.1); Carbon Dioxide 26 mmol/L (21-32); Chloride 102 mmol/L (98-108); Estimated CRCL calculation 56 ml/min; Estimated Glomerular Filt Rate > 60; Glucose 122 mg/dL (70-99); Magnesium 1.9 mg/dL (1.8-2.4); Osmolality Calculated 282 mOsm/kg (285-295); Potassium 3.1 mmol/L (3.5-5.1); Sodium 136 mmol/L (136-145); Total Protein 5.4 g/dL (6.4-8.2)
--- NOTE | 2022-11-16 07:37 | P.PNIM_ITS ---
Progress Note: A&P Assessment and Plan (1) Aspiration pneumonia: Code(s): J69.0 - Pneumonitis due to inhalation of food and vomit Status: Acute Assessment and Plan: Emesis on and acute respiratory decompensation the following day. XR showed RUL pneumonia * IV Vanc, Cefepime and Levaquin started yesterday Will DC Levaquin today start on Azithromycin oral for 4 doses for Atypical Pneumonia. Will de-escalate cefepime today to Augmentin and add Flagyl for a total of 7 days, EOT 11/19 * Awaiting MRSA swab to d/c vanco * Probiotic started today * Call placed to Infectious disease pharmacist * breathing treatment * Oxygen * Patient can come off of isolation . (2) Ribs, multiple fractures: Code(s): S22.49XA - Multiple fractures of ribs, unspecified side, initial encounter for closed fracture Status: Acute Assessment and Plan: Rib fractures from fall * Intermittently follows commands and judgement is decreased so he is less likely to be able to use incentive spirometer. * Ordered for RT to see him and see if they can do some CPT therapy with him, maybe trial PEP. * He had a lower lobe mucous plug on CTA * Added mucinex (3) Altered mental status: Code(s): R41.82 - Altered mental status, unspecified Status: Acute Assessment and Plan: Alert and intermittently following commands * This is improved since Wednesday after starting him on abx for his pneumonia * This seems to be new baseline orientation after recent fall and brain bleed (4) Debility: Code(s): R53.81 - Other malaise Status: Acute Assessment and Plan: Severe * starting to have contractures to his hands * generally weak. unable to lift his left arm against gravity * PT/OT/ST consulted on the case and recommendations are appreciated * Likely disposition will need to be SNF unless has 24 hour care provided. (5) Intracranial bleed: Code(s): I62.9 - Nontraumatic intracranial hemorrhage, unspecified Status: Acute Assessment and Plan: CT head from 11/15 shows continued evolution of previously known ICH. * mental status is improved today * Fall on 10/18 with no concerning imaging and then repeat fall on 10/25 * [facility] transfer for ICH on 10/25 (6) Coronary artery disease: Code(s): I25.10 - Atherosclerotic heart disease of [place] coronary artery without angina pectoris Status: Acute Assessment and Plan: CAD, H/O STEMI s/p PCI with stents to mid and proximal LAD and OM, HTN * ASA and ticegrelor has been held due to ICH * Continue atorvastatin * Resumed his home antihypertensives today (7) Parkinson disease: Code(s): G20 - Parkinson's disease Status: Acute Assessment and Plan: Parkinson's vs dementia vs NPH * follows with Dr Rodriguez and [facility] [place] with three year history of forgetfulness. Diagnosis was uncertain. MRI shows mild flobal cerebral atrophy, mild small vessel ischemic changes, and ventriculomegaly possibly consistent wtih NPH. * Was taking donezpil but per it made him too confused so that was stopped * Continues with carbidopa-levadopa TID. * Was getting worked up for a shunt however this has been put off due to these recent falls. (8) Dens fracture with nonunion: Code(s): S12.110K - Anterior displaced Type II dens fracture, subsequent encounter for fracture with nonunion Status: Acute Assessment and Plan: Noted on CT spine from 10/19 * non-operative management with [place] J at all times * C-spine precautions * Also has right clavica
--- NOTE | 2022-11-16 07:37 | PM.IMPN ---
Progress Note: A&P Assessment and Plan (1) Aspiration pneumonia: Code(s): J69.0 - Pneumonitis due to inhalation of food and vomit Status: Acute Assessment and Plan: Emesis on and acute respiratory decompensation the following day. XR showed RUL pneumonia IV Vanc, Cefepime and Levaquin started yesterday Will DC Levaquin today start on Azithromycin oral for 4 doses for Atypical Pneumonia. Will de-escalate cefepime today to Augmentin and add Flagyl for a total of 7 days, EOT 11/19 Awaiting MRSA swab to d/c vanco Probiotic started today Call placed to Infectious disease pharmacist breathing treatment Oxygen Patient can come off of isolation . (2) Ribs, multiple fractures: Code(s): S22.49XA - Multiple fractures of ribs, unspecified side, initial encounter for closed fracture Status: Acute Assessment and Plan: Rib fractures from fall Intermittently follows commands and judgement is decreased so he is less likely to be able to use incentive spirometer. Ordered for RT to see him and see if they can do some CPT therapy with him, maybe trial PEP. He had a lower lobe mucous plug on CTA Added mucinex (3) Altered mental status: Code(s): R41.82 - Altered mental status, unspecified Status: Acute Assessment and Plan: Alert and intermittently following commands This is improved since Wednesday after starting him on abx for his pneumonia This seems to be new baseline orientation after recent fall and brain bleed (4) Debility: Code(s): R53.81 - Other malaise Status: Acute Assessment and Plan: Severe starting to have contractures to his hands generally weak. unable to lift his left arm against gravity PT/OT/ST consulted on the case and recommendations are appreciated Likely disposition will need to be SNF unless has 24 hour care provided. (5) Intracranial bleed: Code(s): I62.9 - Nontraumatic intracranial hemorrhage, unspecified Status: Acute Assessment and Plan: CT head from 11/15 shows continued evolution of previously known ICH. mental status is improved today Fall on 10/18 with no concerning imaging and then repeat fall on 10/25 [facility] transfer for ICH on 10/25 (6) Coronary artery disease: Code(s): I25.10 - Atherosclerotic heart disease of [place] coronary artery without angina pectoris Status: Acute Assessment and Plan: CAD, H/O STEMI s/p PCI with stents to mid and proximal LAD and OM, HTN ASA and ticegrelor has been held due to ICH Continue atorvastatin Resumed his home antihypertensives today (7) Parkinson disease: Code(s): G20 - Parkinson's disease Status: Acute Assessment and Plan: Parkinson's vs dementia vs NPH [place] with Dr Rodriguez [place] [facility] [place] three year history of forgetfulness. Diagnosis was uncertain. MRI shows mild flobal cerebral atrophy, mild small vessel ischemic changes, and ventriculomegaly possibly consistent wtih NPH. Was taking donezpil but per it made him too confused so that was stopped Continues with carbidopa-levadopa TID. Was getting worked up for a shunt however this has been put off due to these recent falls. (8) Dens fracture with nonunion: Code(s): S12.110K - Anterior displaced Type II dens fracture, subsequent encounter for fracture with nonunion Status: Acute Assessment and Plan: Noted on CT spine from 10/19 non-operative management with trina Jackson at all times C-spine precautions Also has right clavical fracture Needs to follow up with ortho spine at the end of November. Plan Feeding: level 5 minced and moist, ST eval Analgesia: tylenol scheduled, tramadol prn Thromboembolic prophylaxis: scd Ulcer prophylaxis: protonix Glycemic control: na Bowel regimen: miralax and ducolax Lines: PIV Antibiotics: Augmentin, Flagyl, and Vanco---waiting for MRSA swab to stop vanco Subjective Date/time s
[2022-11-16 07:38] VITALS: BP 167/56; PULSE 68; RESP 16; TEMP 36.7; O2SAT 95
[2022-11-16 08:37] VITALS: PULSE 64
[2022-11-16] MEDS: METOPROLOL SUCCINATE EXT REL 25 MG TABCR PO (08:37)
[2022-11-16] MEDS: MIRABEGRON 25 MG ER TABLET 50 MG PO (08:38)
[2022-11-16] MEDS: SACCHAROMYCES BOULARDII 250 MG CAPSULE PO ×3 (08:38→16:29)
[2022-11-16] MEDS: CARBIDOPA/LEVODOPA 25/100 MG TABLET 1.5 TABLET PO ×3 (08:39→16:29)
[2022-11-16] MEDS: PANTOPRAZOLE 40 MG TABLET PO (08:39)
[2022-11-16] MEDS: SENNOSIDES 8.6 MG TABLET PO ×2 (08:39→16:30)
[2022-11-16] MEDS: guaiFENesin 12 HR 600 MG TABCR PO (08:40)
[2022-11-16] MEDS: AZITHROMYCIN 250 MG TABLET PO (08:40)
[2022-11-16] MEDS: amLODIPine BESYLATE 5 MG TABLET PO (08:41)
[2022-11-16] MEDS: ASPIRIN 81 MG ENTERIC TABLET PO (08:43)
[2022-11-16] MEDS: POTASSIUM CHLORIDE 20 MEQ PACKET (FOR LIQUID) 40 MEQ PO (08:44)
--- NOTE | 2022-11-16 09:08 | PC.NURSE ---
Patient changed from NPO status to Level 5 diet. Patient able to take meds orally, with some noted choking on liquid K+.
[2022-11-16] MEDS: traMADol HCL (*CRX) 50 MG TABLET PO (12:08)
[2022-11-16] MEDS: metroNIDAZOLE 250 MG TABLET 500 MG PO (13:17)
--- NOTE | 2022-11-16 15:29 | PC.NURSE ---
Diet charnged to Heart healthy pureed and nectar thick liquids.
[2022-11-16 16:00] VITALS: BP 152/71; PULSE 74; RESP 16; TEMP 36.4; O2SAT 97
[2022-11-16] MEDS: ACETAMINOPHEN 325 MG TABLET 650 MG PO (16:29)
--- NOTE | 2022-11-16 17:44 | PCRCNOTE ---
CPT @ 1700 not due per RN request not to be done before eating.
[2022-11-16] MEDS: ONDANSETRON INJ 4 MG/2 ML VIAL IV PUSH (20:48)
[2022-11-16] MEDS: ATORVASTATIN 40 MG TABLET PO (21:29)
--- NOTE | 2022-11-16 22:23 | PC.NURSE ---
Addendum entered by Keyonna Lawrence RN 11/17/22 05:13: Patient was given scheduled tylenol at 0458, as patient refused to take his scheduled tylenol until 0020. He took it the first try. Addendum entered by Keyonna Lawrence RN 11/17/22 00:42: Patient took the medication crushed in applesauce at 0020 on 11/17/2022. It was not possible to update the MAR. Medications given include Bisacodyl PO, Tylenol 650 mg, Amoxicillin/Clav K 875/125 mg, guaifenesin 1200 mg, and Atorvastatin 40 mg. These medications were due at 2100 on 11/16/2022. Original Note: Patient had a change in status on Wednesday, and is now in-patient, rather than swing bed. He has been diagnosed with pneumonia in his right lung, and a mucous plug in his left lung. His diet is now pureed, and he is on nectar thickened liquids. Day shift nurse reported that patient was given pills crushed in applesauce. As patient has a history of nausea and vomiting, he was given IV zofran 30 minutes prior to crushed medication in applesauce. When it was time to give those meds, patient refused to open his mouth. He was told that his medication was in the applesauce, could he please eat it. He still refused to open his mouth. Patient was asked whether if he would take his medication, and he responded No. Patient was asked a second time, after other things were done, and patient again responded No. Patient was given time to change his mind, so the nurse left the room and returned 30 minutes later. Patient again refused to open his mouth, and responded no to taking his medication. Charting was changed to reflect his refusal.
[2022-11-17] VITALS: BP 174/82; PULSE 66; PULSE 84; RESP 16; TEMP 36.6; O2SAT 96
[2022-11-17] MEDS: DEXTROSE 5%/0.9% SOD CHL 1,000 ML 100 ML IV CONT ×2 (01:02→12:24)
[2022-11-17 02:35] LABS: Basophils Absolute Auto 0.07 K/mm3 (0.00-0.10); Basophils Percent Auto 0.8 % (0.0-1.0); Eosinophils Absolute Auto 0.41 K/mm3 (0.02-0.50); Eosinophils Percent Auto 4.4 % (1.0-6.0); Hematocrit 34.3 % (37.0-46.0); Hemoglobin 11.5 g/dL (12.4-15.3); Immature Granulocyte Absolute 0.04 K/mm3 (0.00-0.00); Immature Granulocyte Percent A 0.4 % (0.0-0.0); Lymphocytes Absolute Auto 0.66 K/mm3 (1.10-4.50); Lymphocytes Percent Auto 7.1 % (18.0-42.0); Mean Corpuscular HGB Conc 33.5 g/dL (32.0-36.0); Mean Corpuscular Hemoglobin 33.3 pg (27.0-31.0); Mean Corpuscular Volume 99.4 fL (78.0-102.0); Mean Platelet Volume 8.3 fl (8.7-11.0); Monocytes Percent Auto 6.5 % (2.0-11.0); Neutrophils Absolute Auto 7.5 K/mm3 (1.7-7.2); Neutrophils Percent Auto 80.8 % (50.0-70.0); Platelet Count Result 269 K/mm3 (150-420); Red Blood Count 3.45 M/mm3 (4.70-6.10); Red Cell Distribution Width 13.4 % (11.6-14.4); White Blood Count 9.3 K/mm3 (4.8-10.8)
[2022-11-17 02:49] LABS: Alanine Aminotransferase 9 U/L (16-63); Albumin Level 1.7 g/dL (3.4-5.0); Alkaline Phosphatase 113 U/L (46-116); Anion Gap 8 mmol/L (8-16); Aspartate Amino Transferase 16 U/L (15-37); Bilirubin,Total 0.5 mg/dL (0.00-1.00); Blood Urea Nitrogen 10 mg/dL (7-18); Calcium 7.8 mg/dL (8.5-10.1); Carbon Dioxide 26 mmol/L (21-32); Chloride 101 mmol/L (98-108); Estimated CRCL calculation 55 ml/min; Estimated Glomerular Filt Rate > 60; Glucose 115 mg/dL (70-99); Magnesium 1.7 mg/dL (1.8-2.4); Osmolality Calculated 280 mOsm/kg (285-295); Potassium 3.2 mmol/L (3.5-5.1); Sodium 135 mmol/L (136-145); Total Protein 5.2 g/dL (6.4-8.2); Vancomycin Trough 11.8 ug/mL (10.0-15.0)
--- NOTE | 2022-11-17 03:06 | PC.NURSE ---
Contacted Dannielle @ pharmacy regarding patient's Vancomycin level being 11.8 and Vancomycin dose is being changed to 1G q 12 hours.
[2022-11-17] MEDS: VANCOMYCIN 1,000 MG/NS 250 ML 1,000 MG/250 ML BAG 250 MG IVPB ×2 (03:25→14:10)
[2022-11-17 04:00] VITALS: PULSE 63
[2022-11-17] MEDS: ACETAMINOPHEN 325 MG TABLET 650 MG PO ×4 (04:58→21:07)
[2022-11-17 07:47] VITALS: BP 174/77; PULSE 104; PULSE 95; RESP 16; TEMP 36.4; O2SAT 97
--- NOTE | 2022-11-17 08:21 | P.PNIM_ITS ---
Progress Note: A&P Assessment and Plan (1) Aspiration pneumonia: Code(s): J69.0 - Pneumonitis due to inhalation of food and vomit Status: Acute Assessment and Plan: Emesis on and acute respiratory decompensation the following day. XR showed RUL pneumonia * IV Vanc, Cefepime and Levaquin started yesterday Will DC Levaquin today start on Azithromycin oral for 4 doses for Atypical Pneumonia. Will de-escalate cefepime today to Augmentin and add Flagyl for a total of 7 days, EOT 11/19 * Awaiting MRSA swab to d/c vanco * Probiotic started today * Call placed to Infectious disease pharmacist * breathing treatment * Oxygen * Patient can come off of isolation . (2) Ribs, multiple fractures: Code(s): S22.49XA - Multiple fractures of ribs, unspecified side, initial encounter for closed fracture Status: Acute Assessment and Plan: Rib fractures from fall * Intermittently follows commands and judgement is decreased so he is less likely to be able to use incentive spirometer. * Ordered for RT to see him and see if they can do some CPT therapy with him, maybe trial PEP. * He had a lower lobe mucous plug on CTA * Added mucinex (3) Altered mental status: Code(s): R41.82 - Altered mental status, unspecified Status: Acute Assessment and Plan: Alert and intermittently following commands * This is improved since Wednesday after starting him on abx for his pneumonia * This seems to be new baseline orientation after recent fall and brain bleed (4) Debility: Code(s): R53.81 - Other malaise Status: Acute Assessment and Plan: Severe * starting to have contractures to his hands * generally weak. unable to lift his left arm against gravity * PT/OT/ST consulted on the case and recommendations are appreciated * Likely disposition will need to be SNF unless has 24 hour care provided. (5) Intracranial bleed: Code(s): I62.9 - Nontraumatic intracranial hemorrhage, unspecified Status: Acute Assessment and Plan: CT head from 11/15 shows continued evolution of previously known ICH. * mental status is improved today * Fall on 10/18 with no concerning imaging and then repeat fall on 10/25 * [facility] transfer for ICH on 10/25 (6) Coronary artery disease: Code(s): I25.10 - Atherosclerotic heart disease of [place] coronary artery without angina pectoris Status: Acute Assessment and Plan: CAD, H/O STEMI s/p PCI with stents to mid and proximal LAD and OM, HTN * ASA and ticegrelor has been held due to ICH * Continue atorvastatin * Resumed his home antihypertensives today * Increase amlodipine to 10 mg PO daily (7) Parkinson disease: Code(s): G20 - Parkinson's disease Status: Acute Assessment and Plan: Parkinson's vs dementia vs NPH * follows [place] Dr Rodriguez [place] [facility] [place] three year history of forgetfulness. Diagnosis was uncertain. MRI shows mild flobal cerebral atrophy, mild small vessel ischemic changes, and ventriculomegaly possibly consistent wtih NPH. * Was taking donezpil but per it made him too confused so that was stopped * Continues with carbidopa-levadopa TID. * Was getting worked up for a shunt however this has been put off due to these recent falls. (8) Dens fracture with nonunion: Code(s): S12.110K - Anterior displaced Type II dens fracture, subsequent encounter for fracture with nonunion Status: Acute Assessment and Plan: Noted on CT spine from 10/19 * non-operative management with [place] at all times * C-sp
--- NOTE | 2022-11-17 08:21 | PM.IMPN ---
Progress Note: A&P Assessment and Plan (1) Aspiration pneumonia: Code(s): J69.0 - Pneumonitis due to inhalation of food and vomit Status: Acute Assessment and Plan: Emesis on and acute respiratory decompensation the following day. XR showed RUL pneumonia IV Vanc, Cefepime and Levaquin started yesterday Will DC Levaquin today start on Azithromycin oral for 4 doses for Atypical Pneumonia. Will de-escalate cefepime today to Augmentin and add Flagyl for a total of 7 days, EOT 11/19 Awaiting MRSA swab to d/c vanco Probiotic started today Call placed to Infectious disease pharmacist breathing treatment Oxygen Patient can come off of isolation . (2) Ribs, multiple fractures: Code(s): S22.49XA - Multiple fractures of ribs, unspecified side, initial encounter for closed fracture Status: Acute Assessment and Plan: Rib fractures from fall Intermittently follows commands and judgement is decreased so he is less likely to be able to use incentive spirometer. Ordered for RT to see him and see if they can do some CPT therapy with him, maybe trial PEP. He had a lower lobe mucous plug on CTA Added mucinex (3) Altered mental status: Code(s): R41.82 - Altered mental status, unspecified Status: Acute Assessment and Plan: Alert and intermittently following commands This is improved since Wednesday after starting him on abx for his pneumonia This seems to be new baseline orientation after recent fall and brain bleed (4) Debility: Code(s): R53.81 - Other malaise Status: Acute Assessment and Plan: Severe starting to have contractures to his hands generally weak. unable to lift his left arm against gravity PT/OT/ST consulted on the case and recommendations are appreciated Likely disposition will need to be SNF unless has 24 hour care provided. (5) Intracranial bleed: Code(s): I62.9 - Nontraumatic intracranial hemorrhage, unspecified Status: Acute Assessment and Plan: CT head from 11/15 shows continued evolution of previously known ICH. mental status is improved today Fall on 10/18 with no concerning imaging and then repeat fall on 10/25 [facility] transfer for ICH on 10/25 (6) Coronary artery disease: Code(s): I25.10 - Atherosclerotic heart disease of [place] coronary artery without angina pectoris Status: Acute Assessment and Plan: CAD, H/O STEMI s/p PCI with stents to mid and proximal LAD and OM, HTN ASA and ticegrelor has been held due to ICH Continue atorvastatin Resumed his home antihypertensives today Increase amlodipine to 10 mg PO daily (7) Parkinson disease: Code(s): G20 - Parkinson's disease Status: Acute Assessment and Plan: Parkinson's vs dementia vs NPH follows with Dr Rodriguez and [facility] with three year history of forgetfulness. Diagnosis was uncertain. MRI shows mild flobal cerebral atrophy, mild small vessel ischemic changes, and ventriculomegaly possibly consistent wtih NPH. Was taking donezpil but per it made him too confused so that was stopped Continues with carbidopa-levadopa TID. Was getting worked up for a shunt however this has been put off due to these recent falls. (8) Dens fracture with nonunion: Code(s): S12.110K - Anterior displaced Type II dens fracture, subsequent encounter for fracture with nonunion Status: Acute Assessment and Plan: Noted on CT spine from 10/19 non-operative management with trina Jackson at all times C-spine precautions Also has right clavical fracture Needs to follow up with ortho spine at the end of November. Plan Feeding: level 5 minced and moist, ST eval Analgesia: tylenol scheduled, tramadol prn Thromboembolic prophylaxis: scd Ulcer prophylaxis: protonix Glycemic control: na Bowel regimen: miralax and ducolax Lines: PIV Antibiotics: Augmentin and Vanco---waiting for MRSA swab to stop
[2022-11-17] MEDS: POTASSIUM CHLORIDE 20 MEQ PACKET (FOR LIQUID) 40 MEQ PO (08:53)
[2022-11-17] MEDS: MAGNESIUM OXIDE 400 MG TABLET PO (08:55)
[2022-11-17] MEDS: amLODIPine BESYLATE 5 MG TABLET 10 MG PO ×2 (08:55→09:10)
[2022-11-17] MEDS: AMOXICILLIN/CLAVULANATE K 875-125 MG TAB 1 TABLET PO ×2 (08:56→21:07)
[2022-11-17] MEDS: SACCHAROMYCES BOULARDII 250 MG CAPSULE PO ×3 (08:56→16:53)
[2022-11-17 08:57] VITALS: PULSE 95
[2022-11-17] MEDS: CARBIDOPA/LEVODOPA 25/100 MG TABLET 1.5 TABLET PO ×3 (08:57→16:52)
[2022-11-17] MEDS: METOPROLOL SUCCINATE EXT REL 25 MG TABCR PO (08:57)
[2022-11-17] MEDS: MIRABEGRON 25 MG ER TABLET 50 MG PO (08:57)
[2022-11-17] MEDS: guaiFENesin 12 HR 600 MG TABCR PO ×2 (08:58→21:07)
[2022-11-17] MEDS: PANTOPRAZOLE 40 MG TABLET PO (08:59)
[2022-11-17] MEDS: SENNOSIDES 8.6 MG TABLET PO ×2 (08:59→16:55)
[2022-11-17] MEDS: ASPIRIN 81 MG ENTERIC TABLET PO (08:59)
--- NOTE | 2022-11-17 10:31 | PC.NURSE ---
Patient more alert today and able to transfer with 2 maximum assist from chair to bed and back. Tolerating thickened liquids and pureed diet. Patient answers questions verbally at times. Patient had a small bowel movement.
--- NOTE | 2022-11-17 13:41 | PC.NURSE ---
Awaiting ST to observe medication administration per ST request. ST will be available around 1400, so 1300 med administration may be late.
[2022-11-17 16:00] VITALS: BP 136/57; PULSE 72; RESP 16; TEMP 36.4; O2SAT 95
--- NOTE | 2022-11-17 16:23 | PCOTNOTE ---
The patient refused to participate in OT this afternoon due to feeling fatigued per nursing following placing an IV, the patient would not follow any commands or engage with therapist at this time.
--- NOTE | 2022-11-17 17:11 | PC.NURSE ---
Patient does not want to eat. Patient will not open his mouth when engineering writer tries to feed him. Para Machine Operator offered both the dinner kitchen brought and also chocolate pudding. Patient still refuses.
[2022-11-17 19:39] VITALS: PULSE 72; RESP 16; O2SAT 95
[2022-11-17] MEDS: ATORVASTATIN 40 MG TABLET PO (21:07)
[2022-11-17 21:39] LABS: Adenovirus DNA Not Detected (Not Detected); Chlamydophila pneumoniae Not Detected (Not Detected); Coronavirus 229E Not Detected (Not Detected); Coronavirus HKU1 Not Detected (Not Detected); Coronavirus NL63 Not Detected (Not Detected); Coronavirus OC43 Not Detected (Not Detected); Human Metapneumovirus Not Detected (Not Detected); Human Parainfluenza Virus 1 Not Detected (Not Detected); Human Parainfluenza Virus 2 Not Detected (Not Detected); Human Parainfluenza Virus 3 Not Detected (Not Detected); Human Parainfluenza Virus 4 Detected (Not Detected); Human RSV B Not Detected (Not Detected); Influenza A Not Detected (Not Detected); Influenza B Not Detected (Not Detected); Mycoplasma pneumoniae Not Detected (Not Detected); Rhinovirus/Enterovirus Not Detected (Not Detected)
[2022-11-18] VITALS: BP 126/79; PULSE 85; RESP 16; TEMP 36.3; O2SAT 96
[2022-11-18] MEDS: DEXTROSE 5%/0.9% SOD CHL 1,000 ML 100 ML IV CONT (00:21)
[2022-11-18] MEDS: ACETAMINOPHEN 325 MG TABLET 650 MG PO ×4 (03:11→21:00)
[2022-11-18] MEDS: VANCOMYCIN 1,000 MG/NS 250 ML 1,000 MG/250 ML BAG 250 MG IVPB (03:22)
[2022-11-18 05:15] LABS: Basophils Absolute Auto 0.11 K/mm3 (0.00-0.10); Basophils Percent Auto 1.2 % (0.0-1.0); Eosinophils Absolute Auto 0.38 K/mm3 (0.02-0.50); Eosinophils Percent Auto 4.2 % (1.0-6.0); Hematocrit 35.6 % (37.0-46.0); Hemoglobin 11.8 g/dL (12.4-15.3); Immature Granulocyte Absolute 0.03 K/mm3 (0.00-0.00); Immature Granulocyte Percent A 0.3 % (0.0-0.0); Lymphocytes Absolute Auto 0.58 K/mm3 (1.10-4.50); Lymphocytes Percent Auto 6.4 % (18.0-42.0); Mean Corpuscular HGB Conc 33.1 g/dL (32.0-36.0); Mean Corpuscular Hemoglobin 33.1 pg (27.0-31.0); Monocytes Absolute Auto 0.61 K/mm3 (0.10-0.90); Monocytes Percent Auto 6.7 % (2.0-11.0); Neutrophils Absolute Auto 7.4 K/mm3 (1.7-7.2); Neutrophils Percent Auto 81.2 % (50.0-70.0); Platelet Count Result 295 K/mm3 (150-420); Red Blood Count 3.56 M/mm3 (4.70-6.10); Red Cell Distribution Width 13.2 % (11.6-14.4); White Blood Count 9.1 K/mm3 (4.8-10.8)
[2022-11-18 05:29] LABS: Alanine Aminotransferase 10 U/L (16-63); Albumin Level 1.8 g/dL (3.4-5.0); Alkaline Phosphatase 122 U/L (46-116); Anion Gap 4 mmol/L (8-16); Aspartate Amino Transferase 21 U/L (15-37); Bilirubin,Total 0.5 mg/dL (0.00-1.00); Blood Urea Nitrogen 5 mg/dL (7-18); Calcium 7.9 mg/dL (8.5-10.1); Carbon Dioxide 29 mmol/L (21-32); Chloride 102 mmol/L (98-108); Estimated CRCL calculation 54 ml/min; Estimated Glomerular Filt Rate > 60; Glucose 116 mg/dL (70-99); Magnesium 1.7 mg/dL (1.8-2.4); Osmolality Calculated 278 mOsm/kg (285-295); Potassium 3.3 mmol/L (3.5-5.1); Sodium 135 mmol/L (136-145); Total Protein 5.4 g/dL (6.4-8.2)
--- NOTE | 2022-11-18 06:10 | PC.NURSE ---
On 11/18/22, the DRUM BUILDER, Monse Xiao, provided care and completed [facility] documentation on this patient. I have reviewed the DRUM BUILDER's documentation and agree with the findings.
--- NOTE | 2022-11-18 07:19 | P.PNIM_ITS ---
Progress Note: A&P Assessment and Plan (1) Aspiration pneumonia: Code(s): J69.0 - Pneumonitis due to inhalation of food and vomit Status: Acute Assessment and Plan: Emesis on and acute respiratory decompensation the following day. XR showed RUL pneumonia * IV Vanc, Cefepime and Levaquin started yesterday Will DC Levaquin today start on Azithromycin oral for 4 doses for Atypical Pneumonia. Will de-escalate cefepime today to Augmentin and add Flagyl for a total of 7 days, EOT 11/19 * Awaiting MRSA swab to d/c vanco * Probiotic started today * Call placed to Infectious disease pharmacist * breathing treatment * Oxygen * Patient off of isolation. viral respiratory panel showed parainfluenza virus 4. (2) Ribs, multiple fractures: Code(s): S22.49XA - Multiple fractures of ribs, unspecified side, initial encounter for closed fracture Status: Acute Assessment and Plan: Rib fractures from fall * Intermittently follows commands and judgement is decreased so he is less likely to be able to use incentive spirometer. * Ordered for RT to see him and see if they can do some CPT therapy with him, maybe trial PEP. * He had a lower lobe mucous plug on CTA * Added mucinex (3) Altered mental status: Code(s): R41.82 - Altered mental status, unspecified Status: Acute Assessment and Plan: Alert and intermittently following commands * This is improved since Wednesday after starting him on abx for his pneumonia * This seems to be new baseline orientation after recent fall and brain bleed (4) Debility: Code(s): R53.81 - Other malaise Status: Acute Assessment and Plan: Severe * starting to have contractures to his hands * generally weak. unable to lift his left arm against gravity * PT/OT/ST consulted on the case and recommendations are appreciated * Likely disposition will need to be SNF unless has 24 hour care provided. (5) Intracranial bleed: Code(s): I62.9 - Nontraumatic intracranial hemorrhage, unspecified Status: Acute Assessment and Plan: CT head from 11/15 shows continued evolution of previously known ICH. * mental status is improved today * Fall on 10/18 with no concerning imaging and then repeat fall on 10/25 * [facility] transfer for ICH on 10/25 (6) Coronary artery disease: Code(s): I25.10 - Atherosclerotic heart disease of [place] coronary artery without angina pectoris Status: Acute Assessment and Plan: CAD, H/O STEMI s/p PCI with stents to mid and proximal LAD and OM, HTN * ASA and ticegrelor has been held due to ICH * Continue atorvastatin * Resumed his home antihypertensives today * Increase amlodipine to 10 mg PO daily * Blood pressure improved on 11/18 morning (7) Parkinson disease: Code(s): G20 - Parkinson's disease Status: Acute Assessment and Plan: Parkinson's vs dementia vs NPH * follows with Dr Rodriguez and [facility] with three year history of forgetfulness. Diagnosis was uncertain. MRI shows mild flobal cerebral atrophy, mild small vessel ischemic changes, and ventriculomegaly possibly consistent wtih NPH. * Was taking donezpil but per it made him too confused so that was stopped * Continues with carbidopa-levadopa TID. * Was getting worked up for a shunt however this has been put off due to these recent falls. (8) Dens fracture with nonunion: Code(s): S12.110K - Anterior displaced Type II dens fracture, subsequent encounter for fracture with nonunion Status: Acute Assessment and Plan:
--- NOTE | 2022-11-18 07:19 | PM.IMPN ---
Progress Note: A&P Assessment and Plan (1) Aspiration pneumonia: Code(s): J69.0 - Pneumonitis due to inhalation of food and vomit Status: Acute Assessment and Plan: Emesis on and acute respiratory decompensation the following day. XR showed RUL pneumonia IV Vanc, Cefepime and Levaquin started yesterday Will DC Levaquin today start on Azithromycin oral for 4 doses for Atypical Pneumonia. Will de-escalate cefepime today to Augmentin and add Flagyl for a total of 7 days, EOT 11/19 Awaiting MRSA swab to d/c vanco Probiotic started today Call placed to Infectious disease pharmacist breathing treatment Oxygen Patient off of isolation. viral respiratory panel showed parainfluenza virus 4. (2) Ribs, multiple fractures: Code(s): S22.49XA - Multiple fractures of ribs, unspecified side, initial encounter for closed fracture Status: Acute Assessment and Plan: Rib fractures from fall Intermittently follows commands and judgement is decreased so he is less likely to be able to use incentive spirometer. Ordered for RT to see him and see if they can do some CPT therapy with him, maybe trial PEP. He had a lower lobe mucous plug on CTA Added mucinex (3) Altered mental status: Code(s): R41.82 - Altered mental status, unspecified Status: Acute Assessment and Plan: Alert and intermittently following commands This is improved since Wednesday after starting him on abx for his pneumonia This seems to be new baseline orientation after recent fall and brain bleed (4) Debility: Code(s): R53.81 - Other malaise Status: Acute Assessment and Plan: Severe starting to have contractures to his hands generally weak. unable to lift his left arm against gravity PT/OT/ST consulted on the case and recommendations are appreciated Likely disposition will need to be SNF unless has 24 hour care provided. (5) Intracranial bleed: Code(s): I62.9 - Nontraumatic intracranial hemorrhage, unspecified Status: Acute Assessment and Plan: CT head from 11/15 shows continued evolution of previously known ICH. mental status is improved today Fall on 10/18 with no concerning imaging and then repeat fall on 10/25 [facility] transfer for ICH on 10/25 (6) Coronary artery disease: Code(s): I25.10 - Atherosclerotic heart disease of [place] coronary artery without angina pectoris Status: Acute Assessment and Plan: CAD, H/O STEMI s/p PCI with stents to mid and proximal LAD and OM, HTN ASA and ticegrelor has been held due to ICH Continue atorvastatin Resumed his home antihypertensives today Increase amlodipine to 10 mg PO daily Blood pressure improved on 11/18 morning (7) Parkinson disease: Code(s): G20 - Parkinson's disease Status: Acute Assessment and Plan: Parkinson's vs dementia vs NPH follows with Dr Rodriguez and [facility] clinic with three year history of forgetfulness. Diagnosis was uncertain. MRI shows mild flobal cerebral atrophy, mild small vessel ischemic changes, and ventriculomegaly possibly consistent wtih NPH. Was taking donezpil but per it made him too confused so that was stopped Continues with carbidopa-levadopa TID. Was getting worked up for a shunt however this has been put off due to these recent falls. (8) Dens fracture with nonunion: Code(s): S12.110K - Anterior displaced Type II dens fracture, subsequent encounter for fracture with nonunion Status: Acute Assessment and Plan: Noted on CT spine from 10/19 non-operative management with trina Jackson at all times C-spine precautions Also has right clavical fracture Needs to follow up with ortho spine at the end of November. Plan Feeding: level 5 minced and moist, ST eval Analgesia: tylenol scheduled, tramadol prn Thromboembolic prophylaxis: scd Ulcer prophylaxis: protonix Glycemic control: na Bowel regimen: miralax an
[2022-11-18 08:35] VITALS: BP 188/97; PULSE 88; RESP 18; TEMP 36.4; O2SAT 95
--- NOTE | 2022-11-18 08:40 | PC.NURSE ---
This nurse noted that left arm appeared to be swollen during physical assessment. IV site to left forearm noted to be infiltrated. Site de-accessed and dressing applied. Left arm elevated on pillow to assist in swelling going down. Patient denies any pain at site.
[2022-11-18] MEDS: guaiFENesin 12 HR 600 MG TABCR PO ×2 (09:00→21:00)
[2022-11-18] MEDS: AMOXICILLIN/CLAVULANATE K 875-125 MG TAB 1 TABLET PO ×2 (09:00→21:00)
[2022-11-18] MEDS: SENNOSIDES 8.6 MG TABLET PO ×2 (09:00→17:06)
[2022-11-18] MEDS: MIRABEGRON 25 MG ER TABLET 50 MG PO (09:00)
[2022-11-18] MEDS: CARBIDOPA/LEVODOPA 25/100 MG TABLET 1.5 TABLET PO ×3 (09:01→17:06)
[2022-11-18] MEDS: ASPIRIN 81 MG ENTERIC TABLET PO (09:01)
[2022-11-18] MEDS: amLODIPine BESYLATE 5 MG TABLET 10 MG PO (09:01)
[2022-11-18 09:02] VITALS: PULSE 88
[2022-11-18] MEDS: SACCHAROMYCES BOULARDII 250 MG CAPSULE PO ×3 (09:02→17:06)
[2022-11-18] MEDS: METOPROLOL SUCCINATE EXT REL 25 MG TABCR PO (09:02)
[2022-11-18] MEDS: PANTOPRAZOLE 40 MG TABLET PO (09:02)
--- NOTE | 2022-11-18 10:00 | PC.NURSE ---
Patients MRSA nares swab resulted negative. Due to discontinuation of IV fluids and IV Antibiotic IV site not restarted. PROPERTY CLAIMS MANAGER Jose aware and okayed.
[2022-11-18] MEDS: POTASSIUM CHLORIDE 20 MEQ PACKET (FOR LIQUID) 40 MEQ PO (11:48)
[2022-11-18 16:00] VITALS: BP 138/72; PULSE 84; RESP 16; TEMP 36.6; O2SAT 95
[2022-11-18] MEDS: ATORVASTATIN 40 MG TABLET PO (21:00)
[2022-11-18] MEDS: traMADol HCL (*CRX) 50 MG TABLET PO (21:00)
[2022-11-18 23:06] VITALS: BP 145/65; PULSE 67; RESP 18; TEMP 36.6; O2SAT 95
[2022-11-19] MEDS: ACETAMINOPHEN 325 MG TABLET 650 MG PO ×3 (03:52→17:48)
[2022-11-19 05:18] LABS: Basophils Percent Auto 1.3 % (0.0-1.0); Eosinophils Absolute Auto 0.32 K/mm3 (0.02-0.50); Eosinophils Percent Auto 4.2 % (1.0-6.0); Hemoglobin 12.4 g/dL (12.4-15.3); Immature Granulocyte Absolute 0.04 K/mm3 (0.00-0.00); Immature Granulocyte Percent A 0.5 % (0.0-0.0); Lymphocytes Absolute Auto 1.06 K/mm3 (1.10-4.50); Lymphocytes Percent Auto 13.8 % (18.0-42.0); Mean Corpuscular HGB Conc 32.6 g/dL (32.0-36.0); Mean Corpuscular Hemoglobin 33.1 pg (27.0-31.0); Mean Corpuscular Volume 101.3 fL (78.0-102.0); Mean Platelet Volume 8.8 fl (8.7-11.0); Monocytes Absolute Auto 0.68 K/mm3 (0.10-0.90); Monocytes Percent Auto 8.8 % (2.0-11.0); Neutrophils Absolute Auto 5.5 K/mm3 (1.7-7.2); Neutrophils Percent Auto 71.4 % (50.0-70.0); Platelet Count Result 290 K/mm3 (150-420); Red Blood Count 3.75 M/mm3 (4.70-6.10); Red Cell Distribution Width 13.4 % (11.6-14.4); White Blood Count 7.7 K/mm3 (4.8-10.8)
[2022-11-19 05:33] LABS: Alanine Aminotransferase 20 U/L (16-63); Albumin Level 1.9 g/dL (3.4-5.0); Alkaline Phosphatase 133 U/L (46-116); Anion Gap 4 mmol/L (8-16); Aspartate Amino Transferase 30 U/L (15-37); Bilirubin,Total 0.5 mg/dL (0.00-1.00); Blood Urea Nitrogen 11 mg/dL (7-18); Calcium 8.2 mg/dL (8.5-10.1); Carbon Dioxide 29 mmol/L (21-32); Chloride 101 mmol/L (98-108); Estimated CRCL calculation 50 ml/min; Estimated Glomerular Filt Rate > 60; Glucose 98 mg/dL (70-99); Magnesium 1.8 mg/dL (1.8-2.4); Osmolality Calculated 277 mOsm/kg (285-295); Potassium 3.7 mmol/L (3.5-5.1); Sodium 134 mmol/L (136-145); Total Protein 5.7 g/dL (6.4-8.2)
[2022-11-19 08:30] VITALS: BP 168/82; PULSE 77; RESP 18; TEMP 36.3; O2SAT 95
--- NOTE | 2022-11-19 08:40 | PC.NURSE ---
Patient refusing to eat. Nurse will attempt again after giving patient some time to rest. HOB elevated. Call light at side. Patient did take several sips of oj.
[2022-11-19] MEDS: MIRABEGRON 25 MG ER TABLET 50 MG PO (09:05)
[2022-11-19 09:06] VITALS: PULSE 77
[2022-11-19] MEDS: METOPROLOL SUCCINATE EXT REL 25 MG TABCR PO (09:06)
[2022-11-19] MEDS: AMOXICILLIN/CLAVULANATE K 875-125 MG TAB 1 TABLET PO (09:06)
[2022-11-19] MEDS: amLODIPine BESYLATE 5 MG TABLET 10 MG PO (09:06)
[2022-11-19] MEDS: CARBIDOPA/LEVODOPA 25/100 MG TABLET 1.5 TABLET PO ×2 (09:06→17:48)
[2022-11-19] MEDS: ASPIRIN 81 MG ENTERIC TABLET PO (09:06)
[2022-11-19] MEDS: SACCHAROMYCES BOULARDII 250 MG CAPSULE PO ×2 (09:06→17:48)
[2022-11-19] MEDS: guaiFENesin 12 HR 600 MG TABCR PO (09:07)
[2022-11-19] MEDS: PANTOPRAZOLE 40 MG TABLET PO (09:07)
[2022-11-19] MEDS: SENNOSIDES 8.6 MG TABLET PO (09:07)
--- NOTE | 2022-11-19 09:10 | PC.NURSE ---
This nurse attempted to give patient medications in pudding. Patient refusing to take medication at this time. Nurse will attempt again after giving patient some time to rest.
--- NOTE | 2022-11-19 10:30 | PC.NURSE ---
Patient took medications in crushed in pudding. Encouraged to second swallow, patient tolerated fair. No coughing noted. Encouraged to drink fluids.
--- NOTE | 2022-11-19 14:12 | P.PNIM_ITS ---
Progress Note: A&P Assessment and Plan (1) Aspiration pneumonia: Code(s): J69.0 - Pneumonitis due to inhalation of food and vomit Status: Acute Assessment and Plan: Emesis on 11/12 and acute respiratory decompensation the following day. XR showed RUL pneumonia * IV Vanc, Cefepime and Levaquin started yesterday Will DC Levaquin today start on Azithromycin oral for 4 doses for Atypical Pneumonia. Will de-escalate cefepime today to Augmentin and add Flagyl for a total of 7 days, EOT 11/19 * Awaiting MRSA swab to d/c vanco * Probiotic started today * Call placed to Infectious disease pharmacist * breathing treatment * Oxygen * Patient off of isolation. viral respiratory panel showed parainfluenza virus 4. (2) Ribs, multiple fractures: Code(s): S22.49XA - Multiple fractures of ribs, unspecified side, initial encounter for closed fracture Status: Acute Assessment and Plan: Rib fractures from fall * Intermittently follows commands and judgement is decreased so he is less likely to be able to use incentive spirometer. * Ordered for RT to see him and see if they can do some CPT therapy with him, maybe trial PEP. * He had a lower lobe mucous plug on CTA * Added mucinex (3) Altered mental status: Code(s): R41.82 - Altered mental status, unspecified Status: Acute Assessment and Plan: Alert and intermittently following commands * This is improved since Wednesday after starting him on abx for his pneumonia * This seems to be new baseline orientation after recent fall and brain bleed (4) Debility: Code(s): R53.81 - Other malaise Status: Acute Assessment and Plan: Severe * starting to have contractures to his hands * generally weak. unable to lift his left arm against gravity * PT/OT/ST consulted on the case and recommendations are appreciated * Likely disposition will need to be SNF unless has 24 hour care provided. (5) Intracranial bleed: Code(s): I62.9 - Nontraumatic intracranial hemorrhage, unspecified Status: Acute Assessment and Plan: CT head from 11/15 shows continued evolution of previously known ICH. * mental status is improved today * Fall on 10/18 with no concerning imaging and then repeat fall on 10/25 * [facility] transfer for ICH on 10/25 (6) Coronary artery disease: Code(s): I25.10 - Atherosclerotic heart disease of [place] coronary artery without angina pectoris Status: Acute Assessment and Plan: CAD, H/O STEMI s/p PCI with stents to mid and proximal LAD and OM, HTN * ASA and ticegrelor has been held due to ICH * Continue atorvastatin * Resumed his home antihypertensives today * Increase amlodipine to 10 mg PO daily * Blood pressure improved on 11/18 morning (7) Parkinson disease: Code(s): G20 - Parkinson's disease Status: Acute Assessment and Plan: Parkinson's vs dementia vs NPH * follows with Dr Rodriguez and [facility] clinic with three year history of forgetfulness. Diagnosis was uncertain. MRI shows mild flobal cerebral atrophy, mild small vessel ischemic changes, and ventriculomegaly possibly consistent wtih NPH. * Was taking donezpil but per it made him too confused so that was stopped * Continues with carbidopa-levadopa TID. * Was getting worked up for a shunt however this has been put off due to these recent falls. (8) Dens fracture with nonunion: Code(s): S12.110K - Anterior displaced Type II dens fracture, subsequent encounter for fracture with nonunion Status: Acute Assessment and P
--- NOTE | 2022-11-19 14:12 | PM.IMPN ---
Progress Note: A&P Assessment and Plan (1) Aspiration pneumonia: Code(s): J69.0 - Pneumonitis due to inhalation of food and vomit Status: Acute Assessment and Plan: Emesis on 11/12 and acute respiratory decompensation the following day. XR showed RUL pneumonia IV Vanc, Cefepime and Levaquin started yesterday Will DC Levaquin today start on Azithromycin oral for 4 doses for Atypical Pneumonia. Will de-escalate cefepime today to Augmentin and add Flagyl for a total of 7 days, EOT 11/19 Awaiting MRSA swab to d/c vanco Probiotic started today Call placed to Infectious disease pharmacist breathing treatment Oxygen Patient off of isolation. viral respiratory panel showed parainfluenza virus 4. (2) Ribs, multiple fractures: Code(s): S22.49XA - Multiple fractures of ribs, unspecified side, initial encounter for closed fracture Status: Acute Assessment and Plan: Rib fractures from fall Intermittently follows commands and judgement is decreased so he is less likely to be able to use incentive spirometer. Ordered for RT to see him and see if they can do some CPT therapy with him, maybe trial PEP. He had a lower lobe mucous plug on CTA Added mucinex (3) Altered mental status: Code(s): R41.82 - Altered mental status, unspecified Status: Acute Assessment and Plan: Alert and intermittently following commands This is improved since Wednesday after starting him on abx for his pneumonia This seems to be new baseline orientation after recent fall and brain bleed (4) Debility: Code(s): R53.81 - Other malaise Status: Acute Assessment and Plan: Severe starting to have contractures to his hands generally weak. unable to lift his left arm against gravity PT/OT/ST consulted on the case and recommendations are appreciated Likely disposition will need to be SNF unless has 24 hour care provided. (5) Intracranial bleed: Code(s): I62.9 - Nontraumatic intracranial hemorrhage, unspecified Status: Acute Assessment and Plan: CT head from 11/15 shows continued evolution of previously known ICH. mental status is improved today Fall on 10/18 with no concerning imaging and then repeat fall on 10/25 [facility] transfer for ICH on 10/25 (6) Coronary artery disease: Code(s): I25.10 - Atherosclerotic heart disease of [place] coronary artery without angina pectoris Status: Acute Assessment and Plan: CAD, H/O STEMI s/p PCI with stents to mid and proximal LAD and OM, HTN ASA and ticegrelor has been held due to ICH Continue atorvastatin Resumed his home antihypertensives today Increase amlodipine to 10 mg PO daily Blood pressure improved on 11/18 morning (7) Parkinson disease: Code(s): G20 - Parkinson's disease Status: Acute Assessment and Plan: Parkinson's vs dementia vs NPH follows with Dr Rodriguez and [facility] clinic with three year history of forgetfulness. Diagnosis was uncertain. MRI shows mild flobal cerebral atrophy, mild small vessel ischemic changes, and ventriculomegaly possibly consistent wtih NPH. Was taking donezpil but per it made him too confused so that was stopped Continues with carbidopa-levadopa TID. Was getting worked up for a shunt however this has been put off due to these recent falls. (8) Dens fracture with nonunion: Code(s): S12.110K - Anterior displaced Type II dens fracture, subsequent encounter for fracture with nonunion Status: Acute Assessment and Plan: Noted on CT spine from 10/19 non-operative management with trina Jackson at all times C-spine precautions Also has right clavical fracture Needs to follow up with ortho spine at the end of November. Plan Feeding: level 5 minced and moist, ST eval Analgesia: tylenol scheduled, tramadol prn Thromboembolic prophylaxis: scd Ulcer prophylaxis: protonix Glycemic control: na Bowel regimen: cornelius
--- NOTE | 2022-11-19 14:44 | PM.DS ---
DS: Admitting Diagnosis Discharge Date 11/20/2022 Admitting Diagnosis aspiration pneumonia, shingles, multiple rib fractures, dysphagia, intracranial bleed, debility, Parkinson's disease, dense fracture with routine healing, altered mental status DS: Discharge Diagnosis Discharge Diagnosis (1) Aspiration pneumonia: Code(s): J69.0 - Pneumonitis due to inhalation of food and vomit Status: Acute (2) Ribs, multiple fractures: Code(s): S22.49XA - Multiple fractures of ribs, unspecified side, initial encounter for closed fracture Status: Acute (3) Altered mental status: Code(s): R41.82 - Altered mental status, unspecified Status: Acute (4) Debility: Code(s): R53.81 - Other malaise Status: Acute (5) Intracranial bleed: Code(s): I62.9 - Nontraumatic intracranial hemorrhage, unspecified Status: Acute (6) Coronary artery disease: Code(s): I25.10 - Atherosclerotic heart disease of [place] coronary artery without angina pectoris Status: Acute (7) Parkinson disease: Code(s): G20 - Parkinson's disease Status: Acute (8) Dens fracture with nonunion: Code(s): S12.110K - Anterior displaced Type II dens fracture, subsequent encounter for fracture with nonunion Status: Acute Plan Feeding: level 5 minced and moist, ST eval Analgesia: tylenol and tramadol prn Thromboembolic prophylaxis: scd Ulcer prophylaxis: resume omeprazole or substitute per facility protocol Glycemic control: na Bowel regimen: miralax and ducolax p.r.n. Lines: PIV Antibiotics: last dose of antibiotics 11/19 Dispo: [facility] pending insurance authorization and financial authorization DS: Summary Hospital Course Hospital Course: This is a 77-year-old male patient who was admitted to the inpatient unit from swing bed when he developed aspiration pneumonia with a fever. Patient has undergone treatment with IV antibiotics and has stabilized. Unfortunately, decreasing level of consciousness no longer allows him to participate fully with therapy and he will need to go to the residential under [facility] care. This process has been ongoing for over a month since he had a traumatic fall down some stairs fracturing his C2 dens. Patient was subsequently found after discharge from the hospital and a fall at another facility he was found to have intracranial bleeding and went back to [facility]. During that hospital stay discharge was delayed due to trouble swallowing and feeding. Patient failed a couple of swallow studies. On arrival to swing bed here at [facility] we repeated swallow study and patient was able to tolerate minced and moist food with level to thickening liquids. Despite these accommodations patient suffered aspiration with development of pneumonia while in swing bed status. He was admitted to acute care for IV antibiotics. During the majority of patients swing bed time he is mental status waxed and waned from being able to participate with therapy to not answering questions or following commands. At this time patient is minimally answering any questions with nearly no vocalization per day. This is attributed to his Parkinson's verses normal pressure hydrocephalus. 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 Uncertain if that would be something to reconsider. Once patient was off IV antibiotics the residential began process of insurance and financial approval for SNF vs [facility]. Discharge has been pending this authorization. Peer to peer completed on 11/20/[address] Turner with [facility] approved SNF stay at residential. Status at Discharge Cognitive/behavioral status at discharge: Awake, intermittently follows commands, no vocalizations today Functional status at discharge: uses cane/walker Overall status at discharge: patient is not back to baseline Time Spent with Pa
[2022-11-19 16:35] VITALS: BP 155/71; PULSE 74; RESP 18; TEMP 36.3; O2SAT 96
--- NOTE | 2022-11-19 18:00 | PC.NURSE ---
Patients fed patient dinner. Patient ate very little. Patient more talkative/responsive to questions this evening. Still remains flat affect.
--- NOTE | 2022-11-19 21:36 | PC.NURSE ---
Pt refusing HS medications. Medications were crushed, and already placed in pudding. Once pt finally opened his mouth; he spit the pudding out. Pt's mouth and J-collar wiped clean w/wet wash cloth and dabbed dry. This RN attempted to speak w/the pt in an even tone to calm pt down, and also attempted to let Pt hold the spoon so he had some autonomy w/taking his meds. Pt still non-compliant. Bed in lowest position; side railsx3; call light w/in reach; night light and bed alarm; and located near nurses station for pt safety.
--- NOTE | 2022-11-19 22:09 | PC.NURSE ---
This RN during purposeful rounding asked the pt if he felt okay, and pt stated he felt okay. This RN asked if the pt wanted to attempt taking his HS medications again and pt stated no.
[2022-11-19 23:02] VITALS: BP 132/62; PULSE 62; RESP 15; TEMP 36.4; O2SAT 95
[2022-11-20] MEDS: ACETAMINOPHEN 325 MG TABLET 650 MG PO ×4 (04:17→21:45)
[2022-11-20 05:36] LABS: Basophils Absolute Auto 0.08 K/mm3 (0.00-0.10); Eosinophils Absolute Auto 0.24 K/mm3 (0.02-0.50); Hemoglobin 13.6 g/dL (12.4-15.3); Immature Granulocyte Absolute 0.04 K/mm3 (0.00-0.00); Immature Granulocyte Percent A 0.5 % (0.0-0.0); Lymphocytes Percent Auto 12.5 % (18.0-42.0); Mean Corpuscular HGB Conc 33.2 g/dL (32.0-36.0); Mean Corpuscular Hemoglobin 32.9 pg (27.0-31.0); Mean Platelet Volume 8.9 fl (8.7-11.0); Monocytes Absolute Auto 0.64 K/mm3 (0.10-0.90); Platelet Count Result 310 K/mm3 (150-420); Red Blood Count 4.14 M/mm3 (4.70-6.10); Red Cell Distribution Width 13.5 % (11.6-14.4)
[2022-11-20 05:52] LABS: Alanine Aminotransferase 42 U/L (16-63); Albumin Level 2.1 g/dL (3.4-5.0); Alkaline Phosphatase 151 U/L (46-116); Anion Gap 6 mmol/L (8-16); Aspartate Amino Transferase 82 U/L (15-37); Bilirubin,Total 0.5 mg/dL (0.00-1.00); Blood Urea Nitrogen 12 mg/dL (7-18); Calcium 8.3 mg/dL (8.5-10.1); Carbon Dioxide 30 mmol/L (21-32); Chloride 98 mmol/L (98-108); Estimated CRCL calculation 46 ml/min; Estimated Glomerular Filt Rate > 60; Glucose 94 mg/dL (70-99); Magnesium 1.9 mg/dL (1.8-2.4); Osmolality Calculated 277 mOsm/kg (285-295); Potassium 3.9 mmol/L (3.5-5.1); Sodium 134 mmol/L (136-145); Total Protein 6.1 g/dL (6.4-8.2)
[2022-11-20 07:35] VITALS: PULSE 73; RESP 16; O2SAT 97
[2022-11-20] MEDS: LEVALBUTEROL NEB 1.25 MG/3 ML INHALATION (07:35)
[2022-11-20 07:45] VITALS: BP 148/67; PULSE 73; PULSE 78; RESP 16; RESP 18; TEMP 36.5; O2SAT 94
[2022-11-20 08:39] VITALS: PULSE 78
[2022-11-20] MEDS: MIRABEGRON 25 MG ER TABLET 50 MG PO (08:39)
[2022-11-20] MEDS: CARBIDOPA/LEVODOPA 25/100 MG TABLET 1.5 TABLET PO ×2 (08:39→17:56)
[2022-11-20] MEDS: SACCHAROMYCES BOULARDII 250 MG CAPSULE PO ×2 (08:39→17:56)
[2022-11-20] MEDS: guaiFENesin 12 HR 600 MG TABCR PO ×2 (08:39→20:03)
[2022-11-20] MEDS: METOPROLOL SUCCINATE EXT REL 25 MG TABCR PO (08:39)
[2022-11-20] MEDS: amLODIPine BESYLATE 5 MG TABLET 10 MG PO (08:39)
[2022-11-20] MEDS: ASPIRIN 81 MG ENTERIC TABLET PO (08:40)
[2022-11-20] MEDS: PANTOPRAZOLE 40 MG TABLET PO (08:40)
--- NOTE | 2022-11-20 15:51 | PCOTNOTE ---
The patient did not engage in skilled OT this morning due to patient not responding or opening eyes when therapist entered the room and when therapist attempted to engage with him. Nursing staff reported that the patient's medical condition is stable. The patient would not open eyes or follow any instruction with therapist this morning. Therapist attempted treatment twice this morning with no participation.
[2022-11-20 16:35] VITALS: BP 135/63; PULSE 69; RESP 18; TEMP 36.6; O2SAT 95
[2022-11-20] MEDS: ATORVASTATIN 40 MG TABLET PO (20:03)
[2022-11-21] VITALS: BP 142/62; PULSE 83; RESP 16; TEMP 36.1; O2SAT 96
[2022-11-21] MEDS: ACETAMINOPHEN 325 MG TABLET 650 MG PO ×4 (04:51→21:10)
[2022-11-21 05:26] LABS: Alanine Aminotransferase 49 U/L (16-63); Albumin Level 2.3 g/dL (3.4-5.0); Alkaline Phosphatase 149 U/L (46-116); Anion Gap 7 mmol/L (8-16); Aspartate Amino Transferase 58 U/L (15-37); Bilirubin,Total 0.4 mg/dL (0.00-1.00); Blood Urea Nitrogen 14 mg/dL (7-18); Calcium 8.5 mg/dL (8.5-10.1); Carbon Dioxide 30 mmol/L (21-32); Chloride 101 mmol/L (98-108); Estimated CRCL calculation 51 ml/min; Estimated Glomerular Filt Rate > 60; Glucose 105 mg/dL (70-99); Osmolality Calculated 286 mOsm/kg (285-295); Potassium 3.9 mmol/L (3.5-5.1); Sodium 138 mmol/L (136-145); Total Protein 6.3 g/dL (6.4-8.2)
[2022-11-21 07:39] VITALS: BP 161/65; PULSE 60; RESP 16; TEMP 36.6; O2SAT 96
[2022-11-21 08:32] VITALS: PULSE 60
[2022-11-21] MEDS: METOPROLOL SUCCINATE EXT REL 25 MG TABCR PO (08:32)
[2022-11-21] MEDS: MIRABEGRON 25 MG ER TABLET 50 MG PO (08:32)
[2022-11-21] MEDS: amLODIPine BESYLATE 5 MG TABLET 10 MG PO (08:33)
[2022-11-21] MEDS: ASPIRIN 81 MG ENTERIC TABLET PO (08:33)
[2022-11-21] MEDS: SACCHAROMYCES BOULARDII 250 MG CAPSULE PO ×3 (08:33→17:07)
[2022-11-21] MEDS: SENNOSIDES 8.6 MG TABLET PO ×2 (08:33→17:07)
[2022-11-21] MEDS: guaiFENesin 12 HR 600 MG TABCR PO ×2 (08:34→21:10)
[2022-11-21] MEDS: CARBIDOPA/LEVODOPA 25/100 MG TABLET 1.5 TABLET PO ×3 (08:34→17:06)
[2022-11-21] MEDS: PANTOPRAZOLE 40 MG TABLET PO (08:34)
--- NOTE | 2022-11-21 10:09 | PM.IMPN ---
Progress Note: A&P Assessment and Plan (1) Aspiration pneumonia: Code(s): J69.0 - Pneumonitis due to inhalation of food and vomit Status: Acute (2) Intracranial bleed: Code(s): I62.9 - Nontraumatic intracranial hemorrhage, unspecified Status: Acute (3) Debility: Code(s): R53.81 - Other malaise Status: Acute Plan Patient medically stable for discharge awaiting for placement when it is found Patient is doing very little physical therapy very hard for him to follow commands. Subjective Date/time seen: 11/21/22 10:09 Interval history: Patient in room and is having to be fed and it is taking hours as he chews so long Mr. Marrero is ready for discharge we are awaiting for jail placement at this time Exam Narrative: General: chronically ill appearing, thin, appears stated age. HEENT: normocephalic, atraumatic. Mucous membranes tacky. EOMI, PERRLA, bilateral sclera anicteric, no conjunctival injection. Neck supple without JVD, lymphadenopathy, or bruit. [place] J collar in place. Respiratory: clear but diminished to auscultation on the right lower. No rales/rhonic/wheezes. Cardiovascular: Regular rate and rhythm, normal S1-S2 upon auscultation. No murmurs, rubs, or clicks. PMI is nondisplaced, capillary re-fill less than 3 second. Abdomen: Soft, flat, no pulsatile masses, non-distended and non-tender. No rebound, no guarding. No CVA tenderness, no hepatosplenomegaly.? Bowel sounds present to all four quadrants. Extremities: No cyanosis, clubbing, or edema present. Pulses are palpable 2/2.? Limited ROM to extremities, generally weak overall. Starting to appear to have some hand contractions. Neuro: awaken and working with therapy band, does not vocalize but follows my commands and waved STELLA sloan 3 mm. Skin: Warm and dry. Previously erythematous lesions have resolved Lines: PIV Incisions: N/A Psych: unable to assess, poor safety awareness, does not answer questions. Objective Data Vital Signs Vital Signs: Vital Signs - 24 hr 11/20/22 16:35 11/21/22 00:00 11/21/22 07:39 Temperature 97.8 F 96.9 F L Pulse Rate 69 83 60 Respiratory Rate 18 16 16 Blood Pressure 135/63 142/62 H Pulse Oximetry 95 96 96 Oxygen Delivery Room Air Room Air Room Air 11/21/22 07:39 11/21/22 08:32 Temperature 97.8 F Pulse Rate 60 60 Respiratory Rate 16 Blood Pressure 161/65 H Pulse Oximetry 96 Oxygen Delivery Room Air Intake/Output Intake/Output: Intake & Output 11/18/22 11/19/22 11/20/22 11/21/22 23:59 23:59 23:59 23:59 Intake Total 3010 320 700 100 Output Total 2050 6299 327 6598 Balance 960 -680 75 -900 Meds/Results Medications: Active Medications Generic Name Dose Route Start Last Admin Trade Name Freq PRN Reason Stop Dose Admin Acetaminophen 650 mg 11/13/22 11:38 11/14/22 08:04 Acetaminophen 650 Mg Suppository RECTAL 650 mg Q6H PRN Administration Mild Pain (1-3) or Fever Acetaminophen 650 mg 11/16/22 10:00 11/21/22 04:51 Acetaminophen 325 Mg Tablet PO 650 mg Q6H SYED Administration Amlodipine Besylate 10 mg 11/17/22 08:25 11/21/22 08:33 Amlodipine Besylate 5 Mg Tablet PO 10 mg DAILY SYED Administration Aspirin 81 mg 11/16/22 09:00 11/21/22 08:33 Aspirin 81 Mg Enteric Tablet PO 81 mg DAILY SYED Administration Atorvastatin Calcium 40 mg 11/16/22 21:00 11/20/22 20:03 Atorvastatin 40 Mg Tablet PO 40 mg QHS SYED Administration Bisacodyl 5 mg 11/13/22 11:41 Bisacodyl 5 Mg Tablet Ec PO DAILY PRN Constipation Carbidopa/Levodopa 1.5 tablet 11/16/22 09:00 11/21/22 08:34 Carbidopa/Levodopa 25/100 Mg Tablet PO 1.5 tablet TID SYED Administration Diphenhydramine HCl 12.5 mg 11/13/22 11:37 11/14/22 08:02 Diphenhydramine Hcl Inj 50 Mg/Ml Vial IV PUSH 12.5 mg Q4H PRN Administration Itching Guaifenesin 600 mg 11/16/22 09:00 11/21/22 08:34 Guaifenesin 12 Hr 600 Mg T
--- NOTE | 2022-11-21 13:51 | PC.NURSE ---
Patient's here and removed [place] J collar with patient's head at 45 degree angle to change the padding. Resolution Manager reminded , that patient is not to have the collar removed unless patient is laying flat. did not acknowledge what conventional mortgage underwriter was saying, and continued to move patient's head around without collar. Resolution Manager stabilized patient's head and lowered the head of bed until was finished replacing pads and putting collar back on patient.
[2022-11-21 16:00] VITALS: BP 131/79; PULSE 71; RESP 16; TEMP 36.3; O2SAT 96
[2022-11-21 20:00] VITALS: PULSE 71; RESP 16; O2SAT 96
[2022-11-21] MEDS: traMADol HCL (*CRX) 50 MG TABLET PO (21:10)
[2022-11-21] MEDS: ATORVASTATIN 40 MG TABLET PO (21:10)
[2022-11-22] VITALS: BP 141/72; PULSE 76; RESP 16; TEMP 36.1; O2SAT 95
[2022-11-22] MEDS: ACETAMINOPHEN 325 MG TABLET 650 MG PO ×4 (04:47→21:17)
[2022-11-22 06:42] LABS: Alanine Aminotransferase 48 U/L (16-63); Albumin Level 2.3 g/dL (3.4-5.0); Alkaline Phosphatase 141 U/L (46-116); Anion Gap 6 mmol/L (8-16); Aspartate Amino Transferase 36 U/L (15-37); Bilirubin,Total 0.4 mg/dL (0.00-1.00); Blood Urea Nitrogen 28 mg/dL (7-18); Calcium 8.2 mg/dL (8.5-10.1); Carbon Dioxide 30 mmol/L (21-32); Chloride 104 mmol/L (98-108); Estimated CRCL calculation 49 ml/min; Estimated Glomerular Filt Rate > 60; Glucose 106 mg/dL (70-99); Magnesium 2.1 mg/dL (1.8-2.4); Osmolality Calculated 295 mOsm/kg (285-295); Potassium 3.5 mmol/L (3.5-5.1); Sodium 140 mmol/L (136-145); Total Protein 6.2 g/dL (6.4-8.2)
--- NOTE | 2022-11-22 06:54 | PC.NURSE ---
On 11/22/22, the SPRING FITTER HELPER, Monse Xiao, provided care and completed [facility] documentation on this patient. I have reviewed the SPRING FITTER HELPER's documentation and agree with the findings.
[2022-11-22 07:32] VITALS: BP 150/68; PULSE 70; RESP 18; TEMP 36.6; O2SAT 96
--- NOTE | 2022-11-22 07:45 | PC.NURSE ---
Pt up in chair c use of maxi move, assisted to sitting position of comfort for b-fast. Pt tolerated well. Call [place] at pt side.
[2022-11-22 07:59] VITALS: PULSE 67; RESP 18; O2SAT 96
[2022-11-22] MEDS: CARBIDOPA/LEVODOPA 25/100 MG TABLET 1.5 TABLET PO ×3 (08:32→17:00)
[2022-11-22] MEDS: SENNOSIDES 8.6 MG TABLET PO ×2 (08:33→17:00)
[2022-11-22] MEDS: MIRABEGRON 25 MG ER TABLET 50 MG PO (08:33)
[2022-11-22] MEDS: guaiFENesin 12 HR 600 MG TABCR PO ×2 (08:34→21:17)
[2022-11-22] MEDS: PANTOPRAZOLE 40 MG TABLET PO (08:34)
[2022-11-22 08:35] VITALS: PULSE 70
[2022-11-22] MEDS: METOPROLOL SUCCINATE EXT REL 25 MG TABCR PO (08:35)
[2022-11-22] MEDS: amLODIPine BESYLATE 5 MG TABLET 10 MG PO (08:35)
[2022-11-22] MEDS: SACCHAROMYCES BOULARDII 250 MG CAPSULE PO ×3 (08:35→17:00)
[2022-11-22] MEDS: ASPIRIN 81 MG ENTERIC TABLET PO (08:36)
--- NOTE | 2022-11-22 11:09 | PM.IMPN ---
Progress Note: A&P Assessment and Plan (1) Aspiration pneumonia: Code(s): J69.0 - Pneumonitis due to inhalation of food and vomit Status: Acute (2) Intracranial bleed: Code(s): I62.9 - Nontraumatic intracranial hemorrhage, unspecified Status: Acute (3) Debility: Code(s): R53.81 - Other malaise Status: Acute Plan Patient medically stable for discharge awaiting for placement when it is found Patient is doing very little physical therapy very hard for him to follow commands. Patient is still awaiting medical placement we will draw labs in the am Subjective Date/time seen: 11/22/22 11:09 Interval history: Patient is up in recliner chair with cervical brace on. Patient slowing states that he is ok and denies pain. Patient continues to have a delayed response with needs to be fed and he is awaiting for long term placement . Exam Narrative: General: chronically ill appearing, thin, appears stated age. HEENT: normocephalic, atraumatic. Mucous membranes tacky. EOMI, PERRLA, bilateral sclera anicteric, no conjunctival injection. Neck supple without JVD, lymphadenopathy, or bruit. [place] J collar in place. Respiratory: clear but diminished to auscultation on the right lower. No rales/rhonic/wheezes. Cardiovascular: Regular rate and rhythm, normal S1-S2 upon auscultation. No murmurs, rubs, or clicks. PMI is nondisplaced, capillary re-fill less than 3 second. Abdomen: Soft, flat, no pulsatile masses, non-distended and non-tender. No rebound, no guarding. No CVA tenderness, no hepatosplenomegaly.? Bowel sounds present to all four quadrants. Extremities: No cyanosis, clubbing, or edema present. Pulses are palpable 2/2.? Limited ROM to extremities, generally weak overall. Starting to appear to have some hand contractions. Neuro: awaken and working with therapy band, does not vocalize but follows my commands and waved STELLA sloan 3 mm. Skin: Warm and dry. Previously erythematous lesions have resolved Lines: PIV Incisions: N/A Psych: unable to assess, poor safety awareness, does not answer questions. Const: General: cooperative, healthy appearing, comfortable, no acute distress and anxious Orientation/consciousness: oriented to person, oriented to place and oriented to time HENMT: Head: normal to inspection Eyes: General: appearance normal, both eyes and all related structures Alignment and Position: alignment normal Eyelids: eyelids normal Neck: Neck: normal visual inspection, full ROM and no lymphadenopathy Chest: Chest palpation & inspection: normal inspection of the chest and normal palpation of entire chest wall Resp: Effort & Inspection: normal respiratory effort and able to speak in complete sentences GI: Inspection: normal to inspection : General: Yes bladder normal to inspection and Yes no CVA tenderness Urinary Catheter: Urinary Catheter: patent and draining and urine clear Back/Spine/Pelvis: Back: no CVA tenderness Skin: General skin exam: normal color, no rashes or lesions noted and elasticity normal Neuro: General: oriented to person, oriented to place and oriented to time Speech: Other speech findings present (Neuro) (Patient speaks when he wants to and will ignore you at other times. ) Extrem: General: capillary refill normal Right upper extremity: normal to inspection and normal capillary refill Psych: Appearance: grossly normal Attitude: cooperative Insight: Good insight present (Psych) Judgement: Good judgement present (Psych) Objective Data Vital Signs Vital Signs: Vital Signs - 24 hr 11/21/22 16:00 11/21/22 20:00 11/22/22 00:00 Temperature 97.4 F L 97.0 F L Pulse Rate 71 71 76 Respiratory Rate 16 16 16 Blood Pressure 131/79 141/72 H Pulse Oximetry 96 96 95 Oxygen Delivery Room Air Room Air Room Air 11/22/22 07:32 11/22/22 07:59 11/22/22 08:35 Temperature 97.9 F Pulse Rate 70 67 70 Respiratory Rate 18 18 Blood Pressure 150/68 H
[2022-11-22 16:00] VITALS: BP 143/67; PULSE 62; RESP 18; TEMP 36.6; O2SAT 96
[2022-11-22] MEDS: ATORVASTATIN 40 MG TABLET PO (21:17)
[2022-11-23] VITALS: BP 130/71; PULSE 71; RESP 16; TEMP 36.3; O2SAT 97
[2022-11-23] MEDS: ACETAMINOPHEN 325 MG TABLET 650 MG PO ×2 (04:21→10:17)
[2022-11-23 05:21] LABS: Hematocrit 39.7 % (37.0-46.0); Hemoglobin 13.1 g/dL (12.4-15.3); Mean Corpuscular Hemoglobin 32.9 pg (27.0-31.0); Mean Corpuscular Volume 99.7 fL (78.0-102.0); Platelet Count Result 329 K/mm3 (150-420); Red Blood Count 3.98 M/mm3 (4.70-6.10); Red Cell Distribution Width 13.3 % (11.6-14.4); White Blood Count 5.3 K/mm3 (4.8-10.8)
[2022-11-23 05:39] LABS: Alanine Aminotransferase 40 U/L (16-63); Albumin Level 2.5 g/dL (3.4-5.0); Alkaline Phosphatase 140 U/L (46-116); Anion Gap 7 mmol/L (8-16); Aspartate Amino Transferase 43 U/L (15-37); Bilirubin,Total 0.4 mg/dL (0.00-1.00); Blood Urea Nitrogen 26 mg/dL (7-18); Calcium 8.6 mg/dL (8.5-10.1); Carbon Dioxide 30 mmol/L (21-32); Chloride 102 mmol/L (98-108); Estimated CRCL calculation 51 ml/min; Estimated Glomerular Filt Rate > 60; Glucose 103 mg/dL (70-99); Osmolality Calculated 292 mOsm/kg (285-295); Potassium 3.7 mmol/L (3.5-5.1); Sodium 139 mmol/L (136-145); Total Protein 6.4 g/dL (6.4-8.2)
[2022-11-23 08:00] VITALS: BP 132/63; PULSE 72; RESP 16; TEMP 36.7; O2SAT 96
[2022-11-23] MEDS: CARBIDOPA/LEVODOPA 25/100 MG TABLET 1.5 TABLET PO ×2 (08:50→12:51)
[2022-11-23] MEDS: amLODIPine BESYLATE 5 MG TABLET 10 MG PO (08:50)
[2022-11-23] MEDS: ASPIRIN 81 MG ENTERIC TABLET PO (08:50)
[2022-11-23 08:51] VITALS: PULSE 72
[2022-11-23] MEDS: MIRABEGRON 25 MG ER TABLET 50 MG PO (08:51)
[2022-11-23] MEDS: METOPROLOL SUCCINATE EXT REL 25 MG TABCR PO (08:51)
[2022-11-23] MEDS: PANTOPRAZOLE 40 MG TABLET PO (08:51)
[2022-11-23] MEDS: guaiFENesin 12 HR 600 MG TABCR PO (08:51)
[2022-11-23] MEDS: SACCHAROMYCES BOULARDII 250 MG CAPSULE PO ×2 (08:52→12:52)
[2022-11-23] MEDS: SENNOSIDES 8.6 MG TABLET PO (08:52)
--- NOTE | 2022-11-23 12:40 | PM.DS ---
DS: Admitting Diagnosis Discharge Date 11/23/2022 Admitting Diagnosis aspiration pneumonia, shingles, multiple rib fractures, dysphagia, intracranial bleed, debility, Parkinson's disease, dense fracture with routine healing, altered mental status DS: Discharge Diagnosis Discharge Diagnosis (1) Aspiration pneumonia: Code(s): J69.0 - Pneumonitis due to inhalation of food and vomit Status: Acute (2) Ribs, multiple fractures: Code(s): S22.49XA - Multiple fractures of ribs, unspecified side, initial encounter for closed fracture Status: Acute (3) Altered mental status: Code(s): R41.82 - Altered mental status, unspecified Status: Acute (4) Debility: Code(s): R53.81 - Other malaise Status: Acute (5) Intracranial bleed: Code(s): I62.9 - Nontraumatic intracranial hemorrhage, unspecified Status: Acute (6) Coronary artery disease: Code(s): I25.10 - Atherosclerotic heart disease of [place] coronary artery without angina pectoris Status: Acute (7) Parkinson disease: Code(s): G20 - Parkinson's disease Status: Acute (8) Dens fracture with nonunion: Code(s): S12.110K - Anterior displaced Type II dens fracture, subsequent encounter for fracture with nonunion Status: Acute Plan Discharge to [facility] DS: Summary Hospital Course Hospital Course: This is a 77-year-old male patient who was admitted to the inpatient unit from swing bed when he developed aspiration pneumonia with a fever.? Patient has undergone treatment with IV antibiotics and has stabilized.? Unfortunately, decreasing level of consciousness no longer allows him to participate fully with therapy and he will need [facility] to [facility] under [facility] care.? This process has been ongoing for over a month since he had a traumatic fall down some stairs fracturing his C2 dens.? Patient was subsequently found after discharge from the hospital and a fall at another facility he was found to have intracranial bleeding and went back to [facility].? During that hospital stay discharge was delayed due to trouble swallowing and feeding.? Patient failed a couple of swallow studies.? On arrival to swing bed here at [facility] we repeated swallow study and patient was able to tolerate minced and moist food with level to thickening liquids.? Despite these accommodations patient suffered aspiration with development of pneumonia while in swing bed status.? He was admitted to acute care for IV antibiotics.? During the majority of patients swing bed time he is mental status waxed and waned from being able to participate with therapy to not answering questions or following commands.? At this time patient is minimally answering any questions with nearly no vocalization per day.? This is attributed to his Parkinson's verses normal pressure hydrocephalus.? 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 Uncertain if that would be something to reconsider.? Once patient was off IV antibiotics the [facility] began process of insurance and financial approval for SNF vs detention.? Discharge has been pending this authorization.? Peer to peer completed on 11/20/[address] Turner with [facility] approved SNF. Patient was set to go to [facility] but this was not covered by Health Insurance as they are out of network. Patient was held over the weekend and accepted to [facility] on day of discharge. Status at Discharge Cognitive/behavioral status at discharge: Awake, intermittently follows commands, answering some questions today Time Spent with Patient Time attestation: Total time spent providing and/or coordinating discharge services: Exam Narrative: General: chronically ill appearing, thin, appears stated age. HEENT: normocephalic, atraumatic. Mucous membranes tacky. EOMI, PERRLA, bilateral sclera anicteri
--- NOTE | 2022-11-23 13:12 | PC.NURSE ---
[facility]. This RN gave report to Radha KHOURY. RO
--- NOTE | 2022-11-23 14:01 | PC.NURSE ---
Pt discharged to [facility]. Transfered there by [facility] . VSS.Pt is alert to self only. Pt's has been notified and states she will see the pt after work in [place].
--- NOTE | 2022-11-24 09:27 | PC.NURSE ---
Transferred to [facility], no questions voiced by facility
== END 2022-11-23 13:45 | DRG 179 ==
PROVIDERS: Nurse Practitioner Acute Care; Nurse Practitioner Family; Admitting Provider Internal Medicine; PCP Family Medicine; Visit Provider Internal Medicine
DX: J69.0 Pneumonitis due to inhalation of food and vomit (principal); I25.10 Atherosclerotic heart disease of native coronary artery without angina pectoris; K57.30 Diverticulosis of large intestine without perforation or abscess without bleeding; E78.5 Hyperlipidemia, unspecified; G20.A1 Parkinson's disease without dyskinesia, without mention of fluctuations; R13.10 Dysphagia, unspecified; W10.9XXD Fall (on) (from) unspecified stairs and steps, subsequent encounter; S12.100D Unspecified displaced fracture of second cervical vertebra, subsequent encounter for fracture with routine healing; S22.49XD Multiple fractures of ribs, unspecified side, subsequent encounter for fracture with routine healing; S06.5XAD Traumatic subdural hemorrhage with loss of consciousness status unknown, subsequent encounter; Z79.82 Long term (current) use of aspirin; Z95.5 Presence of coronary angioplasty implant and graft
CPT/HCPCS: 36415; 70450; 71275; 80053; 80202; 83735; 85025; 85027; 85380; 87081; 87633; 92526; 92610; 93005; 94640; 94667; 94668; 97110; 97162; 97165; 97530; 97535; A9270; J0133; J0360; J0692; J1200; J1956; J2270; J2405; J3370; J7040; J7042; Q9967